=== PATIENT | female | born 1940 | race Caucasian/White ===

== ENCOUNTER 2017-06-15 04:28 | Emergency (ER) | payer OTHER ==
[2017-06-15] MEDS ORDERED: MORPHINE 4 MG/ML SYR ONE (05:18)
[2017-06-15] MEDS ORDERED: ONDANSETRON 4 MG/2 ML VIAL ONE (05:18)
--- NOTE | 2017-06-15 06:12 | ER ---
Nurse's Notes [facility] Name: Bowen Jo Age: 77 yrs Sex: Female : 1940 Arrival Date: 06/15/2017 Time: 04:29 Bed 5 Private MD: Barbara Freeman K Diagnosis: Chronic back pain Presentation: 06/15 04:38 Presenting complaint: Patient states: "I been having back pain for the past week and ao half. The pain is getting off my nerve and decided to come to the ER tonight" Patient has a history of Chronic back pain. Transition of care: patient was not received from another setting of care. Onset of symptoms is unknown. Care prior to arrival: None. 04:38 Method Of Arrival: Ambulatory ao 04:38 Acuity: CYNTHIA 4 ao Historical: - Allergies: 04:49 PENICILLINS; ao - Home Meds: 04:49 oxycodone 30 mg Oral tab three times a day [Active]; Cymbalta 60 mg oral cpDR 1 cap ao once daily [Active]; lisinopril 20 mg Oral tab 1 tab once daily [Active]; trazodone 100 mg Oral tab 1 tab 3 times per day [Active]; hydrochlorothiazide 12.5 mg Oral cap 1 cap once daily [Active]; trazodone 150 mg Oral tab nightly [Active]; Trintellix 10 mg oral tab 1 tab once daily [Active]; meloxicam 7.5 mg Oral tab 2 tabs once daily [Active]; fenofibrate 160 mg Oral tab once daily [Active]; tizanidine 2 mg Oral tab 2 tabs every 8 hours [Active]; gabapentin 300 mg Oral cap 3 times per day [Active]; promethazine 25 mg oral tab 1 tab once daily [Active]; oxycodone 30 mg oral tab [Active]; Bactrim DS 800-160 mg Oral tab 1 tab every 6 hours [Active]; - PMHx: 04:49 Arthritis; Back pain; Insomnia; Anxiety; COPD; Diabetes - NIDDM; Hypertension; chronic ao kidney disease; Pneumonia; UTI; High Cholesterol; neuropathy; sciatica; Dementia; constipation; - PSHx: 04:49 Unable to obtain; ao - Immunization history:: Adult Immunizations up to date. - Social history:: Smoking status: Patient uses tobacco products, smokes one pack cigarettes per day. Patient/guardian denies using alcohol, street drugs. Screenin:44 Abuse screen: Denies threats or abuse. Nutritional screening: No deficits noted. bb Tuberculosis screening: No symptoms or risk factors identified. Fall Risk None identified. Assessment: 04:44 General: Appears in no apparent distress. slender, Behavior is calm, cooperative. Pain: bb Complains of pain in right mid back. Neuro: Level of Consciousness is awake, alert, obeys commands, Oriented to person, place, time, situation. Cardiovascular: Heart tones S1 S2 present Capillary refill < 3 seconds Patient's skin is warm and dry. Pulses are all present. Edema is absent. Respiratory: Respiratory effort is unlabored, Breath sounds are diminished in right posterior middle lobe and right posterior lower lobe Breath sounds with wheezes bilaterally. GI: No signs and/or symptoms were reported involving the gastrointestinal system. Derm: Skin is dry, Skin is pale, Skin temperature is warm. Musculoskeletal: Circulation, motion, and sensation intact. 05:06 Reassessment: pt to CT scan via wheelchair with hemodialysis lab technician. bb 05:50 Reassessment: Patient and/or family updated on plan of care and expected duration. Pain bb level reassessed. Patient is alert, oriented x 3, equal unlabored respirations, skin warm/dry/pink. pt states pain medication did not help at all, Dr Moore notified. 06:19 Reassessment: Pt and daughter verbalized understanding of and agree to plan of care bb discharge instructions given with list of pain management specialists, pt assisted to exit via wheelchair accompanied by daughter. Vital Signs: 04:40 BP 185 / 75; Pulse 102; Resp 20; Temp 98.4(O); Pulse Ox 86% on R/A; Weight 53.52 kg ao (R); Height 5 ft. 3 in. (160.02 cm) (R); Pain 10/10; 05:49 BP 159 / 83; Pulse 100; Resp 20; Pulse Ox 93% on 2 lpm NC; aa1 06:20 BP 158 / 85; Pulse 98; Resp 20; Temp 98.1(O); Pulse Ox 93% on 3 lpm NC; bb 04:40 Body Mass Index 20.90 (53.52 kg, 160.02 cm) ao ED Course: 04:29 Patient arrived in ED. es 04:29 Barbara Freeman MD is Private Physician. es 04:40 Triage completed. ao 04:40 Arm band placed on right wrist. Patient placed in an exam room, on a stretcher, on ao pulse oximetry, Patient notified of wait time. 04:44 Hermila Mahmood, RN is Primary Nurse. bb 04:44 Patient has correct armband on for positive identification. Bed in low position. Call bb light in reach. Side rails up X 1. Adult w/ patient. ekg monitor tech on. Pulse ox on. NIBP on. 04:47 Marciano Moore MD is Attending Physician. pkl 05:17 CT Lumbar Spine Wo Con In Process Unspecified. EDMS 06:11 Nguyen Valverde MD is Referral Physician. pkl 06:19 No provider procedures requiring assistance completed. Patient did not have IV access bb during this emergency room visit. Administered Medications: 05:02 Drug: morphine 2 mg Route: IM; Site: right gluteus; bb 05:51 Follow up: Response: Pain is unchanged, physician notified bb 05:02 Drug: Zofran 4 mg Route: IM; Site: right gluteus; bb 05:51 Follow up: Response: No adverse reaction bb Outcome: 06:11 Discharge ordered by MD. pkl 06:21 Discharged to home via wheelchair, with family. bb 06:21 Condition: stable 06:21 Discharge instructions given to patient, family, Instructed on discharge instructions, follow up and referral plans. Demonstrated understanding of instructions, follow-up care. 06:22 Patient left the ED. bb Signatures: Dispatcher [employer] Carrie Clark RN RN aa1 Marciano Moore MD MD pkl Cassy Ansari Brenda, CHICA RN bb Kwaku Gamboa RN RN ao
--- NOTE | 2017-06-15 06:12 | EDPHYS ---
Physician Documentation [facility] Name: Bowen Jo Age: 77 yrs Sex: Female : 1940 Arrival Date: 06/15/2017 Time: 04:29 Bed 5 Private MD: Barbara Freeman K ED Physician Marciano Moore HPI: 06/15 04:55 This 77 yrs old Female presents to ER via Ambulatory with complaints of Back pkl Pain. 04:55 The patient presents with pain that is chronic. The symptoms are located in the low pkl back. Onset: The symptoms/episode began/occurred 1.5 week(s) ago. The pain does not radiate. Patient has H/O chronic back pain. Historical: - Allergies: 04:49 PENICILLINS; ao - Home Meds: 04:49 oxycodone 30 mg Oral tab three times a day [Active]; Cymbalta 60 mg oral cpDR 1 cap ao once daily [Active]; lisinopril 20 mg Oral tab 1 tab once daily [Active]; trazodone 100 mg Oral tab 1 tab 3 times per day [Active]; hydrochlorothiazide 12.5 mg Oral cap 1 cap once daily [Active]; trazodone 150 mg Oral tab nightly [Active]; Trintellix 10 mg oral tab 1 tab once daily [Active]; meloxicam 7.5 mg Oral tab 2 tabs once daily [Active]; fenofibrate 160 mg Oral tab once daily [Active]; tizanidine 2 mg Oral tab 2 tabs every 8 hours [Active]; gabapentin 300 mg Oral cap 3 times per day [Active]; promethazine 25 mg oral tab 1 tab once daily [Active]; oxycodone 30 mg oral tab [Active]; Bactrim DS 800-160 mg Oral tab 1 tab every 6 hours [Active]; - PMHx: 04:49 Arthritis; Back pain; Insomnia; Anxiety; COPD; Diabetes - NIDDM; Hypertension; chronic ao kidney disease; Pneumonia; UTI; High Cholesterol; neuropathy; sciatica; Dementia; constipation; - PSHx: 04:49 Unable to obtain; ao - Immunization history:: Adult Immunizations up to date. - Social history:: Smoking status: Patient uses tobacco products, smokes one pack cigarettes per day. Patient/guardian denies using alcohol, street drugs. ROS: 04:55 Eyes: Negative for injury, pain, redness, and discharge, ENT: Negative for injury, pkl pain, and discharge, Neck: Negative for injury, pain, and swelling, Cardiovascular: Negative for chest pain, palpitations, and edema, Respiratory: Negative for shortness of breath, cough, wheezing, and pleuritic chest pain, Abdomen/GI: Negative for abdominal pain, nausea, vomiting, diarrhea, and constipation. 04:55 Back: Positive for pain with movement. 04:55 : Negative for urinary symptoms. 04:55 MS/extremity: Negative for acute changes. 04:55 Skin: Negative for rash. 04:55 Neuro: Negative for altered mental status. Exam: 04:55 Head/Face: Normocephalic, atraumatic. Eyes: Pupils equal round and reactive to light, pkl extra-ocular motions intact. Lids and lashes normal. Conjunctiva and sclera are non-icteric and not injected. Cornea within normal limits. Periorbital areas with no swelling, redness, or edema. ENT: Nares patent. No nasal discharge, no septal abnormalities noted. Tympanic membranes are normal and external auditory canals are clear. Oropharynx with no redness, swelling, or masses, exudates, or evidence of obstruction, uvula midline. Mucous membranes moist. Neck: Trachea midline, no thyromegaly or masses palpated, and no cervical lymphadenopathy. Supple, full range of motion without nuchal rigidity, or vertebral point tenderness. No Meningismus. Chest/axilla: Normal chest wall appearance and motion. Nontender with no deformity. No lesions are appreciated. Cardiovascular: Regular rate and rhythm with a normal S1 and S2. No gallops, murmurs, or rubs. Normal PMI, no JVD. No pulse deficits. Respiratory: Lungs have equal breath sounds bilaterally, clear to auscultation and percussion. No rales, rhonchi or wheezes noted. No increased work of breathing, no retractions or nasal flaring. Abdomen/GI: Soft, non-tender, with normal bowel sounds. No distension or tympany. No guarding or rebound. No evidence of tenderness throughout. 04:55 Back: pain, that is moderate, of the lower back, Straight leg raises: of both lower extremities does not illicit pain. 04:55 Musculoskeletal/extremity: Exam is negative for acute changes. 04:55 Skin: Exam negative for rash. 04:55 Neuro: Orientation: is normal, Mentation: is normal, Cranial nerves: grossly normal, Motor: is normal. Vital Signs: 04:40 BP 185 / 75; Pulse 102; Resp 20; Temp 98.4(O); Pulse Ox 86% on R/A; Weight 53.52 kg ao (R); Height 5 ft. 3 in. (160.02 cm) (R); Pain 10/10; 05:49 BP 159 / 83; Pulse 100; Resp 20; Pulse Ox 93% on 2 lpm NC; aa1 06:20 BP 158 / 85; Pulse 98; Resp 20; Temp 98.1(O); Pulse Ox 93% on 3 lpm NC; bb 04:40 Body Mass Index 20.90 (53.52 kg, 160.02 cm) ao MDM: 04:47 Patient medically screened. pkl 06:10 Data reviewed: vital signs, nurses notes, radiologic studies, CT scan. pkl 06/15 04:54 Order name: CT Lumbar Spine Wo Con pkl Administered Medications: 05:02 Drug: morphine 2 mg Route: IM; Site: right gluteus; bb 05:51 Follow up: Response: Pain is unchanged, physician notified bb 05:02 Drug: Zofran 4 mg Route: IM; Site: right gluteus; bb 05:51 Follow up: Response: No adverse reaction bb Disposition: 06/15/17 06:11 Discharged to Home. Impression: Chronic back pain. - Condition is Stable. - Medication Reconciliation Form, Thank You Letter, Antibiotic Education, Prescription Opioid Use form. - Follow up: Nguyen Valverde MD; When: 2 - 3 days; Reason: Re-evaluation by your physician. - Problem is new. - Symptoms have improved. Signatures: Dispatcher [employer] EDMS Marciano Moore MD MD pkl Hermila Mahmood, RN RN bb Kwaku Gamboa, RN RN ao
--- NOTE | 2017-06-15 09:48 | RAD REPORT ---
EXAM DESCRIPTION: CT - Spine Lumbar Wo Con - 06/15/2017 9:01 am CLINICAL HISTORY: Radiculopathy and back pain x 1 1/2 weeks. TECHNIQUE: CT computed axial tomography of the lumbar spine was obtained with coronal and sagittal r econstruction. A preliminary report was generated by virtual radiologic and reviewed prior to this di ctation COMPARISON: X-ray August 2012. FINDINGS: Mild anterior subluxation of L5 on S1 is unchanged from the prior examination. L1-L2 is unremarkable. A small disc bulge is present at L2-L3. Disc bulge with ligamentum flavum and facet hypertrophy is seen at L3-L4. The thecal sac measures 10 mm. The neural foramina are patent. Disc bulge, ligamentum flavum and facet hypertrophy is present at L4-L5. The thecal sac measures 8 mm . Mild narrowing of the neural foramina bilaterally is seen. Disc bulge, ligamentum flavum facet hypertrophy is present at L5-S1. There is moderate to marked narr owing of the right neural foramina. Mild narrowing left neural foramina is seen. Small non-obstructing renal calculi are seen. A lumbar fracture is not seen. 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
== END 2017-06-15 06:22 | disposition home or self-care (01) ==
LOC: ER 04:28
DX: M54.9 Dorsalgia, unspecified (principal); F17.210 Nicotine dependence, cigarettes, uncomplicated; I10 Essential (primary) hypertension; E11.9 Type 2 diabetes mellitus without complications; F41.9 Anxiety disorder, unspecified; F03.90 Unspecified dementia, unspecified severity, without behavioral disturbance, psychotic disturbance, mood disturbance, and anxiety; J44.9 Chronic obstructive pulmonary disease, unspecified; E78.00 Pure hypercholesterolemia, unspecified
CPT/HCPCS: 72131; 96372; 99284; J2405

== ENCOUNTER 2017-09-10 18:52 | Inpatient (IN) | payer OTHER ==
--- OUTSIDE RECORDS SUMMARY | 2017-09-10 18:55 | XMS REPORT | Continuity of Care Document ---
:1940 Author Organization Interface Problems Problem Status Onset Classification Date Comments Source Date Reported COMBINED FORMS OF Active 08/13/19 [facility] AGE-RELATED CATARACT, [facility] ENDOTHELIAL CORNEA Active 07/24/19 [facility] DYSTROPHY [address] [place] [address] COPD Resolved Problem 08/24/2015 [facility] Diabetes Resolved Problem 08/24/2015 [facility] Hypercholesteremia Resolved Problem 08/24/2015 [facility] Hypertension Resolved Problem 08/24/2015 [facility] Pain<sup>1</sup> Resolved Problem 08/24/2015 [facility] Medications Medication Details Route Status Patient Ordering Order Source Instructions Provider Date Naloxone
0.4 mg, 1 Inactive 08/20[facility] mL, Route: IVP, 2015 [facility] form: INJ, Center Q2MIN, Dosing Weight 56.364, kg, PRN Narcotic Reversal, Start date: 08/21/15 13:03:00 CDT, Duration: 8 doses or times, Stop date: Limited # of times
Not es: Same as Narcan Flumazenil
0.2 mg, 2 Inactive 08/20[facility] mL, Route: IVP, 2015 [facility] Drug form: INJ, Center PRN, Dosing Weight 56.364, kg, PRN Benzodiazepine Reversal, Initial dose, Start date: 08/21/15 13:03:00 CDT, Duration: 30 day, Stop date: 09/20/15 13:02:00 CDT
Notes: (Same as: Romazicon) Ondansetron
4 mg, 2 mL, Inactive 08/20[facility] Route: IVP, Drug 2015 Medical form: INJ, ONCE, Center Dosing Weight 56.364, kg, PRN Nausea & Vomiting, Start date: 08/21/15 13:03:00 CDT
Notes: (Same as: Zofran) MEDICATION WASTE Product Size: 4 mg Product Wasted: ___ mg Labetalol
10 mg, 2 Inactive [facility] mL, Route: IVP2015 [facility] form: INJ, Center Q5Min, Dosing Weight 56.364, kg, PRN Elevated BP, Start date: 08/21/15 13:03:00 CDT, Duration: 5 doses or times, Stop date: Limited # of times Morphine
1 mg, 0.5 Inactive [facility] mL, Route: IVP, 2015 [facility] Drug form: INJ, Center Q5Min, Dosing Weight 56.364, kg, PRN Pain Score 4-6, Start date: 08/21/15 13:03:00 CDT, Duration: 5 doses or times, Stop date: Limited # of times
Notes: (Same as:MORPhine Sulfate) Hydralazine
10 mg, 0.5 Inactive [facility] mL, Route: IV2015 [facility] Drug form: INJ, Center Q20Min, Dosing Weight 56.364, kg, PRN Elevated BP, Start date: 08/21/15 13:03:00 CDT, Duration: 2 doses or times, Stop date: Limited # of times
Notes: (Same as: Apresoline) Push over 5 minutes Prednisone
PO, Daily, Active 08/20[facility] 0 Refill(s) 2015 [facility] gabapentin
PO, 0 Active 08/20[facility] Refill(s) [address] [place] [address] Unknown Home
oxycodone, Active 08/20[facility] Medication Refill(s) [address] [place] [address] multivitamin
Daily, 0 Active 08/20[facility] Refill(s) [address] [place] [address] Metformin
PO, 0 Active 08/20[facility] Refill(s) 2016 [facility] Lisinopril
PO, Daily, Active 08/20[facility] 0 Refill(s) [address] [place] [address] Unknown Home
calcium, Active 08/20[facility] Medication Refill(s) [address] [place] [address] Lactulose
0 Refill(s) Active 08/[address] Lipitor
PO, Active 08/20[facility] Bedtime, 0 2015 [facility] Refill[facility] Center Aspirin
0 Refill(s) Active [address] Vigamox
5 drp, Inactive [facility] Route: RIGHT 2016 [facility] E[facility], ONCE, Drug Center form: SOLN, Start date: 08/21/15 10:19:00 CDT, Stop date: 08/21/15 10:19:00 CDT
Notes: (Same as: Vigamox) Allergies, Adverse Reactions, Alerts Substance Category Reaction Severity Reaction Status Date Comments Source type Reported penicillins Assertion Drug Active [facility] Immunizations Immunization Date Given Site Status Last Updated Comments Source Results Order Results Value Reference Date Interpretation Comments Source Name Range Vital Signs Vital Sign Value Date Comments Source Systolic (mm Hg) 159 08/21/2015 [facility] Diastolic (mm Hg) 74 08/21/2015 [facility] Respitory Rate 16 08/21/2015 [facility] Systolic (mm Hg) 145 08/21/2015 [facility] Diastolic (mm Hg) 71 08/21/2015 [facility] Respitory Rate 11 08/21/2015 [facility] Systolic (mm Hg) 120 08/21/2015 [facility] Diastolic (mm Hg) 75 08/21/2015 [facility] Respitory Rate 13 08/21/2015 [facility] Height 162.56 cm 08/21/2015 [facility] Weight 56.364 08/21/2015 [facility] BMI Calculated 21.33 08/21/2015 [facility] Heart Rate 95 08/21/2015 [facility] Encounters Location Location Encounter Encounter Reason Attending ADM DC Status Source Details Type Number For Provider Date Date Visit OBS [id number] Gene Brittany 08/20 08/21 [facility] Surgery /2015 [facility] Procedures Procedure Code Date Perfomer Comments Source Hysterectomy [id number] [facility]
[2017-09-10] MEDS ORDERED: METHYLPREDNISOLONE 125 MG INJ ONE (19:34)
[2017-09-10] MEDS ORDERED: IPRATROPIUM BROM 0.5MG/2.5ML ONE (19:35)
[2017-09-10] MEDS ORDERED: LEVALBUTEROL 1.25 MG/3 ML NEB ONE (19:35)
[2017-09-10 19:50] LABS: Absolute Lymphocytes (CBC) 1.6 K/uL (0.7-4.9); Absolute Monocytes 0.6 K/uL (0.1-1.3); Basophils % 0.4 % (0-1.3); Eosinophils % 0.5 % (0-4.4); Hematocrit 46.6 % (36.0-45.0); MCH 28.7 pg (27.0-35.0); MPV 8.2 fL (7.6-11.3); Monocytes % 4.4 % (3.3-12.3); RBC Red Blood Cell Count 5.17 M/uL (3.86-4.86)
[2017-09-10 19:51] LABS: Protime INR 1.1
[2017-09-10 20:06] LABS: ALT/SGPT 22 U/L (12-78); AST/SGOT 13 U/L (15-37); Albumin 2.8 g/dL (3.4-5.0); Alkaline Phosphatase 86 U/L (45-117); BUN Blood Urea Nitrogen 31 mg/dL (7-18); Bicarbonate 39 mmol/L (21-32); Bilirubin Direct < 0.1 mg/dL (0-0.2); Bilirubin Total 0.3 mg/dL (0.2-1.0); Glucose Level 156 mg/dL (74-106); Lipase 191 U/L (73-393); Magnesium 2.2 mg/dL (1.8-2.4); NT PRO-BNP 503 pg/mL (<450); Potassium 4.5 mmol/L (3.5-5.1); Protein, Total 7.8 g/dL (6.4-8.2); Sodium Level 140 mmol/L (136-145)
[2017-09-10 20:12] LABS: Urine Blood TRACE (NEG); Urine Glucose NEGATIVE (NEG); Urine Protein 2+ (NEG); Urine pH 5.5 (5.0-7.0)
--- NOTE | 2017-09-10 20:42 | RAD REPORT ---
EXAM DESCRIPTION: Ghanshyam Rubio (2 Views)09/10/2017 8:23 pm CLINICAL HISTORY: Cough COMPARISON: March 2017 FINDINGS: The interstitial pattern within the lungs bilaterally appears prominent. The heart is norm al size IMPRESSION: Prominent interstitial pattern within the lungs bilaterally may indicate an atypical pne umonia
--- NOTE | 2017-09-10 21:24 | ER ---
Nurse's Notes [facility] Name: Bowen Jo Age: 77 yrs Sex: Female : 1940 Arrival Date: 09/10/2017 Time: 18:57 Bed External Waiting [facility] MD: Diagnosis: Acute Bilateral Interstitial Pneumonia Presentation: 09/10 19:08 Presenting complaint: Patient states: she was here 3 weeks ago for similar symptoms of bb cough and SOB but symptoms are worsening pt states she feels weak and having difficulty breathing still has a cough. Transition of care: patient was not received from another setting of care. Onset of symptoms is unknown. Risk Assessment: Do you want to hurt yourself or someone else? Patient reports no desire to harm self or others. Initial Sepsis Screen: Does the patient meet any 2 criteria? No. Patient's initial sepsis screen is negative. Does the patient have a suspected source of infection? No. Patient's initial sepsis screen is negative. Care prior to arrival: None. 19:08 Method Of Arrival: Ambulatory bb 19:08 Acuity: CYNTHIA 2 bb Triage Assessment: 19:16 General: Appears uncomfortable, slender, Behavior is calm, cooperative, listless. Pain: bb Denies pain. Neuro: Level of Consciousness is awake, alert, obeys commands, Oriented to person, place, time, situation. Cardiovascular: Heart tones S1 S2 present Capillary refill < 3 seconds Patient's skin is warm and dry. Pulses are all present. Edema is absent. Rhythm is sinus tachycardia. Respiratory: Reports shortness of breath cough that is Airway is patent Respiratory effort is unlabored, Respiratory pattern is tachypnea Breath sounds are clear bilaterally. Breath sounds are diminished bilaterally. Onset: The symptoms/episode began/occurred over 3 weeks ago, the patient has moderate shortness of breath. GI: Abdomen is non-distended. Derm: Skin is dry, Skin is pale, Skin temperature is warm. Musculoskeletal: Circulation, motion, and sensation intact. Historical: - Allergies: 19:16 PENICILLINS; bb - Home Meds: 19:16 Bactrim DS 800-160 mg Oral tab 1 tab every 6 hours [Active]; Cymbalta 60 mg Oral cpDR 1 bb cap once daily [Active]; fenofibrate 160 mg Oral tab once daily [Active]; gabapentin 300 mg Oral cap 3 times per day [Active]; hydrochlorothiazide 12.5 mg Oral cap 1 cap once daily [Active]; lisinopril 20 mg Oral tab 1 tab once daily [Active]; meloxicam 7.5 mg Oral tab 2 tabs once daily [Active]; oxycodone 30 mg Oral tab [Active]; oxycodone 30 mg Oral tab three times a day [Active]; promethazine 25 mg Oral tab 1 tab once daily [Active]; tizanidine 2 mg Oral tab 2 tabs every 8 hours [Active]; trazodone 100 mg Oral tab 1 tab 3 times per day [Active]; trazodone 150 mg Oral tab nightly [Active]; Trintellix 10 mg Oral tab 1 tab once daily [Active]; - PMHx: 19:16 Anxiety; Arthritis; Back pain; chronic kidney disease; constipation; COPD; Dementia; bb Diabetes - NIDDM; High Cholesterol; Hypertension; insomnia; neuropathy; Pneumonia; sciatica; UTI; - PSHx: 19:16 Unable to obtain; bb - Immunization history:: Adult Immunizations up to date. - Social history:: Smoking status: Patient uses tobacco products, smokes one pack cigarettes per day. - Ebola Screening: : No symptoms or risks identified at this time. - Family history:: not pertinent. - Hospitalizations: : No recent hospitalization is reported. Screenin:20 Abuse screen: Denies threats or abuse. Nutritional screening: No deficits noted. bb Tuberculosis screening: No symptoms or risk factors identified. Fall Risk Secondary diagnosis (15 points) IV access (20 points). Ambulatory Aid- None/Bed Rest/Nurse Assist (0 pts). Gait- Weak (10 pts.). Mental Status- Oriented to own ability (0 pts). Total Booth Fall Scale indicates High Risk Score (45 or more points). Fall prevention measures have been instituted. Side Rails Up X 2 Family Present and informed to notify staff if the need to leave the bedside As available patient and family educated on Fall Prevention Program and Strategies. Assessment: 19:20 Reassessment: No changes from previously documented assessment. see triage assessment. bb 20:04 Reassessment: pt returned from bathroom via wheelchair with no complaints, family at bb bedside. 21:00 Reassessment: Patient and/or family updated on plan of care and expected duration. Pain bb level reassessed. pt resting quietly prefers to sit in wheelchair, family at bedside awaiting lab results. 22:00 Reassessment: Patient and/or family updated on plan of care and expected duration. Pain bb level reassessed. pt resting quietly, no complaints, IV intact with fluids infusing. 23:23 Reassessment: Patient and/or family updated on plan of care and expected duration. Pain bb level reassessed. pt resting quietly, IV intact, report called to Talita COTO for room 222 with tele. Vital Signs: 19:16 BP 179 / 100; Pulse 109; Resp 24 S; Temp 99.1(O); Pulse Ox 82% on R/A; Weight 53.52 kg bb (R); Height 5 ft. 4 in. (162.56 cm) (R); Pain 0/10; 19:21 Pulse Ox 93% on 3 lpm NC; bb 20:03 BP 173 / 106; Pulse 112; Resp 25; Pulse Ox 91% on 3 lpm NC; bb 23:16 BP 168 / 101; Pulse 107; Resp 22; Pulse Ox 96% on 3 lpm NC; tl2 19:16 Body Mass Index 20.25 (53.52 kg, 162.56 cm) bb ED Course: 18:57 Patient arrived in ED. sb2 19:02 Chadwick Vaughn MD is Attending Physician. wa 19:08 Hermila Mahmood, CHICA is Primary Nurse. bb 19:10 Triage completed. bb 19:16 Arm band placed on Patient placed in an exam room, on a stretcher, on oxygen, on bb campus monitor, on pulse oximetry. Family accompanied patient. 19:20 Patient has correct armband on for positive identification. Placed in gown. Bed in low bb position. Call light in reach. Side rails up X 1. Adult w/ patient. clinical research monitor on. Pulse ox on. NIBP on. 19:20 Oxygen administration via nasal cannula \T\ 3L/min Response to oxygen therapy: symptoms bb improved. 19:40 Inserted saline lock: 20 gauge in left antecubital area, using aseptic technique. Blood mw2 collected. 19:49 Radiology exam delayed due to patient receiving breathing treatment at this time. ag1 20:20 X-ray completed. Patient tolerated procedure well. ag1 20:21 XRAY Chest Pa And Lat (2 Views) In Process Unspecified. EDMS 21:23 Chadwick Vaughn MD is Hospitalizing Provider. nh 21:23 Shannan Curran MD is Hospitalizing Provider. nh 23:20 No provider procedures requiring assistance completed. Patient admitted, IV remains in bb place. Administered Medications: 19:40 Drug: Xopenex 1.25 mg Route: Inhalation; bb 19:40 Drug: SOLU-Medrol 125 mg Route: IVP; Site: left antecubital; bb 23:24 Follow up: Response: No adverse reaction bb 19:40 Drug: AtroVENT Aerosol 0.5 mg Route: Inhalation; bb 21:40 Drug: Rocephin - (cefTRIAXone) 2 grams Route: IVPB; Infused Over: 30 mins; Site: left tl2 antecubital; 22:29 Follow up: IV Status: Completed infusion tl2 22:15 Drug: Zithromax 500 mg Route: IVPB; Infused Over: 1 hrs; Site: left antecubital; tl2 23:23 Follow up: IV Status: Completed infusion; IV Intake: 250ml bb Intake: 23:23 IV: 250ml; Total: 250ml. bb Outcome: 21:24 Decision to Hospitalize by Provider. wa 23:20 Admitted to Tele accompanied by tech, via stretcher, room 222, with chart, Report bb called to Talita COTO 23:20 Condition: stable 23:20 Instructed on the need for admit. 09/11 01:27 Patient left the ED. tl2 Signatures: Dispatcher [employer] EDMS Hermila Mahmood RN RN bb Gallaway, Ashley ag1 Sharona Holguin RN RN tl2 Chadwick Vaughn MD MD wa Billeau, Sheri 2 [place] Manuel mw2
--- NOTE | 2017-09-10 21:24 | EDPHYS ---
Physician Documentation [facility] Name: Bowen Jo Age: 77 yrs Sex: Female : 1940 Arrival Date: 09/10/2017 Time: 18:57 Bed External Waiting Private MD: ED Physician Chadwick Vaughn HPI: 09/10 19:25 This 77 yrs old Female presents to ER via Ambulatory with complaints of wa Cough, Shortness Of Breath. 19:25 The patient or guardian reports cough, that is constant, difficulty breathing. Onset: wa The symptoms/episode began/occurred 3 week(s) ago. Severity of symptoms: At their worst the symptoms were moderate, in the emergency department the symptoms are actually worse, moderately. Modifying factors: The symptoms are alleviated by nothing, the symptoms are aggravated by nothing. Associated signs and symptoms: Pertinent positives: fever, chills, Pertinent negatives: chest pain, diarrhea, sore throat, vomiting. The patient has experienced similar episodes in the past, a few times. The patient has been recently seen by a physician: the patient's primary care provider, has been seen here. has also seen her PMD. abx given but still not better. pt still smokes cigarettes. Historical: - Allergies: 19:16 PENICILLINS; bb - Home Meds: 19:16 Bactrim DS 800-160 mg Oral tab 1 tab every 6 hours [Active]; Cymbalta 60 mg Oral cpDR 1 bb cap once daily [Active]; fenofibrate 160 mg Oral tab once daily [Active]; gabapentin 300 mg Oral cap 3 times per day [Active]; hydrochlorothiazide 12.5 mg Oral cap 1 cap once daily [Active]; lisinopril 20 mg Oral tab 1 tab once daily [Active]; meloxicam 7.5 mg Oral tab 2 tabs once daily [Active]; oxycodone 30 mg Oral tab [Active]; oxycodone 30 mg Oral tab three times a day [Active]; promethazine 25 mg Oral tab 1 tab once daily [Active]; tizanidine 2 mg Oral tab 2 tabs every 8 hours [Active]; trazodone 100 mg Oral tab 1 tab 3 times per day [Active]; trazodone 150 mg Oral tab nightly [Active]; Trintellix 10 mg Oral tab 1 tab once daily [Active]; - PMHx: 19:16 Anxiety; Arthritis; Back pain; chronic kidney disease; constipation; COPD; Dementia; bb Diabetes - NIDDM; High Cholesterol; Hypertension; insomnia; neuropathy; Pneumonia; sciatica; UTI; - PSHx: 19:16 Unable to obtain; bb - Immunization history:: Adult Immunizations up to date. - Social history:: Smoking status: Patient uses tobacco products, smokes one pack cigarettes per day. - Ebola Screening: : No symptoms or risks identified at this time. - Family history:: not pertinent. - Hospitalizations: : No recent hospitalization is reported. ROS: 19:27 Constitutional: Negative for fever, chills, and weight loss, Eyes: Negative for injury, wa pain, redness, and discharge, ENT: Negative for injury, pain, and discharge, Neck: Negative for injury, pain, and swelling, Cardiovascular: Negative for chest pain, palpitations, and edema, Abdomen/GI: Negative for abdominal pain, nausea, vomiting, diarrhea, and constipation, Back: Negative for injury and pain, : Negative for injury, bleeding, discharge, and swelling, MS/Extremity: Negative for injury and deformity, Skin: Negative for injury, rash, and discoloration, Neuro: Negative for headache, weakness, numbness, tingling, and seizure. 19:27 Respiratory: Positive for cough, shortness of breath, Negative for hemoptysis, orthopnea, pleurisy. 19:27 All other systems are negative. Exam: 19:28 Constitutional: This is a well developed, well nourished patient who is awake, alert, wa and in no acute distress. Head/Face: Normocephalic, atraumatic. Eyes: Pupils equal round and reactive to light, extra-ocular motions intact. Lids and lashes normal. Conjunctiva and sclera are non-icteric and not injected. Cornea within normal limits. Periorbital areas with no swelling, redness, or edema. ENT: Nares patent. No nasal discharge, no septal abnormalities noted. Tympanic membranes are normal and external auditory canals are clear. Oropharynx with no redness, swelling, or masses, exudates, or evidence of obstruction, uvula midline. Mucous membranes moist. Neck: Trachea midline, no thyromegaly or masses palpated, and no cervical lymphadenopathy. Supple, full range of motion without nuchal rigidity, or vertebral point tenderness. No Meningismus. Chest/axilla: Normal chest wall appearance and motion. Nontender with no deformity. No lesions are appreciated. Cardiovascular: Regular rate and rhythm with a normal S1 and S2. No gallops, murmurs, or rubs. Normal PMI, no JVD. No pulse deficits. Abdomen/GI: Soft, non-tender, with normal bowel sounds. No distension or tympany. No guarding or rebound. No evidence of tenderness throughout. Back: No spinal tenderness. No costovertebral tenderness. Full range of motion. Skin: Warm, dry with normal turgor. Normal color with no rashes, no lesions, and no evidence of cellulitis. MS/ Extremity: Pulses equal, no cyanosis. Neurovascular intact. Full, normal range of motion. Neuro: Awake and alert, GCS 15, oriented to person, place, time, and situation. Cranial nerves II-XII grossly intact. Motor strength 5/5 in all extremities. Sensory grossly intact. Cerebellar exam normal. Normal gait. Psych: Awake, alert, with orientation to person, place and time. Behavior, mood, and affect are within normal limits. 19:28 Respiratory: mild respiratory distress is noted, Respirations: normal, Breath sounds: diminished throughout, Respiratory rate: tachypneic Vital Signs: 19:16 BP 179 / 100; Pulse 109; Resp 24 S; Temp 99.1(O); Pulse Ox 82% on R/A; Weight 53.52 kg bb (R); Height 5 ft. 4 in. (162.56 cm) (R); Pain 0/10; 19:21 Pulse Ox 93% on 3 lpm NC; bb 20:03 BP 173 / 106; Pulse 112; Resp 25; Pulse Ox 91% on 3 lpm NC; bb 23:16 BP 168 / 101; Pulse 107; Resp 22; Pulse Ox 96% on 3 lpm NC; tl2 19:16 Body Mass Index 20.25 (53.52 kg, 162.56 cm) MDM: 19:02 Patient medically screened. wa 19:28 Differential Diagnosis: Bronchitis Upper Respiratory Infection Asthma Exacerbation wa Pneumonia Other COPD exacerbation. r/o PE. 21:20 Data reviewed: vital signs, nurses notes, lab test result(s), radiologic studies. Test wa interpretation: by ED physician or midlevel provider: EKG: HR 107, sinus tach. no acute ischemic changes. labs noted for renal insuff. hyperglycemia. proteinuria. CXR: atypical pneumonia. Response to treatment: the patient's symptoms have markedly improved after treatment. Physician consultation: Shannan Curran MD. Admission orders: after a detailed discussion of the patient's condition and case, the admit orders are written by wy. 09/10 19:25 Order name: Blood Culture Adult (2) 09/10 19:25 Order name: BMP; Complete Time: 21:09/10 19:25 Order name: CBC with Diff; Complete Time: 21:09/10 19:25 Order name: Hepatic Function; Complete Time: 21:09/10 19:25 Order name: Lipase; Complete Time: 21:09/10 19:25 Order name: Magnesium; Complete Time: 21:09/10 19:25 Order name: XRAY Chest Pa And Lat (2 Views); Complete Time: 21:09/10 19:25 Order name: NT PRO-BNP; Complete Time: 21:09/10 19:25 Order name: PT-INR; Complete Time: 21:09/10 19:25 Order name: Troponin (emerg Dept Use Only); Complete Time: 21:09/10 20:06 Order name: Urine Dipstick--Ancillary (enter results); Complete Time: 21: 09/10 19:25 Order name: EKG; Complete Time: 19:09/10 19:25 Order name: Cardiac monitoring; Complete Time: :09/10 19:25 Order name: EKG - Nurse/Tech; Complete Time: :09/10 19:25 Order name: IV Saline Lock; Complete Time: 19:57 09/10 19:25 Order name: Labs collected and sent; Complete Time: :09/10 19:25 Order name: O2 Per Protocol; Complete Time: :09/10 19:25 Order name: O2 Sat Monitoring; Complete Time: :09/10 19:25 Order name: Urine Dipstick-Ancillary (obtain specimen); Complete Time: 20:03 sd Administered Medications: 19:40 Drug: Xopenex 1.25 mg Route: Inhalation; bb 19:40 Drug: SOLU-Medrol 125 mg Route: IVP; Site: left antecubital; bb 23:24 Follow up: Response: No adverse reaction bb 19:40 Drug: AtroVENT Aerosol 0.5 mg Route: Inhalation; bb 21:40 Drug: Rocephin - (cefTRIAXone) 2 grams Route: IVPB; Infused Over: 30 mins; Site: left tl2 antecubital; 22:29 Follow up: IV Status: Completed infusion tl2 22:15 Drug: Zithromax 500 mg Route: IVPB; Infused Over: 1 hrs; Site: left antecubital; tl2 23:23 Follow up: IV Status: Completed infusion; IV Intake: 250ml bb Disposition: 09/10/17 21:24 Hospitalization ordered by Shannan Curran for Inpatient Admission. Preliminary diagnosis is Acute Bilateral Interstitial Pneumonia. - Bed requested for Telemetry/MedSurg (Inpatient). - Status is Inpatient Admission. tl2 - Condition is Stable. - Problem is new. - Symptoms have improved. UTI on Admission? No Signatures: Dispatcher [employer] EDMS Rosa Scanlon RN RN Hermila Mahmood RN RN Sharona Greene RN RN tl2 Chadwick Vaughn MD MD wa Botello, Elizabeth eb Corrections: (The following items were deleted from the chart) 21: 21:24 Hospitalization Ordered by Shannan Curran MD for Inpatient Admission. Preliminary eb diagnosis is Acute Bilateral Interstitial Pneumonia. Bed requested for Telemetry/MedSurg (Inpatient). Status is Inpatient Admission. Condition is Stable. Problem is new. Symptoms have improved. UTI on Admission? No. wa 22:34 21:29 09/10/2017 21:24 Hospitalization Ordered by Shannan Curran MD for Inpatient kl Admission. Preliminary diagnosis is Acute Bilateral Interstitial Pneumonia. Bed requested for Telemetry/MedSurg (Inpatient). Status is Inpatient Admission. Condition is Stable. Problem is new. Symptoms have improved. UTI on Admission? No. eb 09/11 01:27 09/10 22:34 09/10/2017 21:24 Hospitalization Ordered by Shannan Curran MD for Inpatient tl2 Admission. Preliminary diagnosis is Acute Bilateral Interstitial Pneumonia. Bed requested for Telemetry/MedSurg (Inpatient). Status is Inpatient Admission. Condition is Stable. Problem is new. Symptoms have improved. UTI on Admission? No. kl
[2017-09-10] MEDS ORDERED: CEFTRIAXONE 1000 MG/VIAL ONE (21:30)
[2017-09-10] MEDS ORDERED: NA CHLORIDE 0.9% 100 ML IV ONE (21:30)
[2017-09-10] MEDS ORDERED: AZITHROMYCIN 500 MG/250 ML BAG ONE (21:30)
--- NOTE | 2017-09-10 22:13 | P.HP ---
Certification for Inpatient Patient admitted to: Inpatient With expected LOS: >2 Midnights Practitioner: I am a practitioner with admitting privileges, knowledge of patient current condition, hospital course, and medical plan of care. Services: Services provided to patient in accordance with Admission requirements found in Title 42 Section 412.3 of the Code of Federal Regulations Patient History Date of Service: 09/10/17 Reason for admission: COPD exacerbation History of Present Illness: Ms Jo is a 77 years old woman with history of COPD on home oxygen 3L by [place], HTN, DM II, CKD who start about 3 weeks ago with progressive SOB associated with productive cough. Her secretions changed color from white to green. She went to see her PCP at that time and was prescribed a course of antibiotic and oral steroids. Despite her medical treatment, the patient did not improve. Today , she was feeling even worse, had subjective fever and more SOB. At my encounter the patient was in non-distress, however, she was dyspneic. Lab work shows 13.3K WBC, lactate and procalcitonin are still pending. CXR remarkable for bilateral interstitial infiltrate, concerning for atypical pneumonia. O2 Sat 83% on RA, temp 99.1F. HR 109, BP 179/100. Allergies Penicillins Allergy (Verified 04/25/16 14:35) swelling Home medications list reviewed: Yes Home Medications: Aspirin 81 mg PO DAILY 04/17/16 Atorvastatin Calcium [Lipitor*] 20 mg PO DAILY 04/17/16 Duloxetine HCl [Cymbalta] 60 mg PO DAILY 04/17/16 Fenofibrate [Tricor*] 145 mg PO DAILY 04/17/16 Gabapentin [Neurontin*] 300 mg PO TID 04/17/16 Lisinopril 40 mg PO DAILYPRN PRN 04/17/16 Metformin HCl [Glucophage*] 500 mg PO DAILYPRN PRN 04/17/16 Multivit-Min/Iron/Folic/Lutein [Centrum Silver Women Tablet] 1 tab PO DAILY 05/29 Sells-3/Dha/Epa/Fish Oil [Sells 3 500 Softgel] 1 cap PO BID 04/17/16 Oxycodone HCl 30 mg PO Q6HP PRN 04/17/16 Promethazine HCl 6 mg PO Q6HP PRN 04/17/16 Trazodone HCl [Desyrel] 100 mg PO BEDTIME 04/17/16 Amlodipine [Norvasc*] 10 mg PO DAILY #30 tab 04/19/16 Metoprolol Tartrate [Lopressor*] 25 mg PO BID 6AM 6PM #60 tab 04/19/16 Carvedilol [Coreg*] 12.5 mg PO BID 6AM 6PM tab 03/30/17 Magnesium Oxide [Mag 0X*] 400 mg PO BID #60 tab 03/30/17 Naph,Mb-Db/K pH,Mbdb [Neutra-Phos Packet] 1 each PO DAILY #30 powd.pack Thiamine HCl [Vitamin B-1*] 100 mg PO DAILY #30 tablet 03/30/17 - Past Medical/Surgical History Diabetic: Yes -: COPD -: Chronic Kidney dz -: NIDDM -: Sciatica -: arthritis -: neuropathy -: hypercholesterimia -: HTN -: hysterectomy -: Partial cornea replacement L eye - Family History Father -: Heart disease, Hypertension, Stroke Mother -: Heart disease, Hypertension Notes: Tish - Social History Smoking Status: Current every day smoker Counseled patient to stop smoking for: less than 10 minutes Smoking therapy provided: Yes Patient receptive to therapy: No Alcohol use: No CD- Drugs: No Caffeine use: Yes Place of Residence: Home Review of Systems 10-point ROS is otherwise unremarkable Physical Examination - Physical Exam General: Alert, In no apparent distress HEENT: Atraumatic, PERRLA, Mucous membr. moist/pink, EOMI, Sclerae nonicteric Neck: Supple, 2+ carotid pulse no bruit, No LAD, Without JVD or thyroid abnormality Respiratory: Diminished, Expiratory wheezes, Rhonchi/gurgles Cardiovascular: Regular rate/rhythm, Normal S1 S2 Gastrointestinal: Normal bowel sounds, No tenderness Musculoskeletal: No tenderness Integumentary: No rashes Neurological: Normal speech, Normal strength at 5/5 x4 extr, Normal tone, Normal affect Lymphatics: No axilla or inguinal lymphadenopathy - Studies Laboratory Data (last 24 hrs) 09/10/17 19:28: PT 13.0 H, INR 1.10 09/10/17 19:28: WBC 13.3 H, Hgb 14.9, Hct 46.6 H, Plt Count 328 09/10/17 19:28: Sodium 140, Potassium 4.5, BUN 31 H, Creatinine 1.50 H, Glucose 156 H, Magnesium 2.2, Total Bilirubin 0.3, AST 13 L, ALT 22, Alkaline Phosphatase 86, Lipase 191 Assessment and Plan - Problems (Diagnosis) (1) Acute on chronic renal failure Onset Date: 04/17/16 Current Visit: No Status: Acute Qualifiers: Acute renal failure type: unspecified Chronic kidney disease stage: stage 3 (moderate) Qualified Code(s): N17.9 - Acute kidney failure, unspecified; N18.3 - Chronic kidney disease, stage 3 (moderate); N18.3 - Chronic kidney disease, stage 3 (moderate) (2) COPD exacerbation Onset Date: 04/17/16 Current Visit: No Status: Acute (3) HTN (hypertension) Onset Date: 04/17/16 Current Visit: No Status: Acute Qualifiers: Hypertension type: essential hypertension (4) Pneumonia Onset Date: 04/27/16 Current Visit: No Status: Acute Qualifiers: Pneumonia type: due to unspecified organism Laterality: bilateral Lung location: unspecified part of lung Qualified Code(s): J18.9 - Pneumonia, unspecified organism (5) Diabetes mellitus Onset Date: 04/17/16 Current Visit: No Status: Chronic Qualifiers: Diabetes mellitus type: type 2 Diabetes mellitus shelter insulin use: with shelter use Diabetes mellitus complication status: without complication Qualified Code(s): E11.9 - Type 2 diabetes mellitus without complications; 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 Will start empiric therapy with Rocephin and Azithromycin. Continue IV steroids and breathing treatment. Will consult Dr Meza for medication optimization. - Advance Directives Does patient have a Living Will: No Does patient have a Durable POA for Healthcare: No - Code Status/Comfort Care Code Status Assessed: Yes Code Status: Full Code
[2017-09-10] MEDS ORDERED: ONDANSETRON 4 MG/2 ML VIAL IV PRN (23:23)
[2017-09-10] MEDS ORDERED: NA CHLORIDE 0.9% 1,000 ML IV SCH (23:23)
[2017-09-10] MEDS ORDERED: ACETAMINOPHEN 500 MG TAB PO PRN (23:23)
[2017-09-10] MEDS: IPRATROPIUM BROM 0.5MG/2.5ML NEB SCH (23:52)
[2017-09-10] MEDS: ALBUTEROL 2.5 MG/3 ML NEB SOL NEB SCH (23:52)
[2017-09-11] MEDS: METHYLPREDNISOLONE 40 MG INJ IV SCH ×4 (00:35→17:27)
[2017-09-11] MEDS: IPRATROPIUM BROM 0.5MG/2.5ML NEB SCH ×5 (03:56→19:31)
[2017-09-11] MEDS: ALBUTEROL 2.5 MG/3 ML NEB SOL NEB SCH ×2 (03:56→08:00)
[2017-09-11] MEDS ORDERED: HYDRALAZINE HCL 20 MG/ML VIAL IV PRN (03:58)
[2017-09-11 04:40] LABS: Absolute Lymphocytes (CBC) 0.5 K/uL (0.7-4.9); Absolute Monocytes 0.1 K/uL (0.1-1.3); Absolute Neutrophil 15.7 K/uL (1.8-8.0); Basophils % 0.1 % (0-1.3); Lymphocytes % 3.2 % (15.3-44.8); MCH 28.6 pg (27.0-35.0); MCV 90.1 fL (80-100); MPV 8.3 fL (7.6-11.3); Monocytes % 0.5 % (3.3-12.3)
[2017-09-11 04:53] LABS: Potassium 4.9 mmol/L (3.5-5.1)
[2017-09-11 05:51] LABS: Blood Morphology Comment NOT SEEN (NOT SEEN); Platelet Estimate ADEQ
[2017-09-11] MEDS ORDERED: INSULIN -REGULAR HUMAN 50 UNIT/0.5 ML ML SQ SCH (07:30)
[2017-09-11] MEDS ORDERED: ALBUTEROL 2.5 MG/3 ML NEB SOL NEB PRN (08:24)
--- NOTE | 2017-09-11 08:28 | P.CNS ---
Date of Consult: 09/11/17 Reason for Consult: COPD exacerbation Chief Complaint: COPD exacerbation History of Present Illness: Patient is 77 years of age in a roast anxious lady history obtained from her daughter she has been short of breath for about 3 weeks complaining of cough congestion has a history of COPD heavy smoker 1 pack a day patient is on home oxygen using nebulizers at home the poor baseline animal exertion at home became progressively worse was exposed to sick family members admitted to the hospital with exacerbation of COPD all she does is takes albuterol at home not been using any long-acting bronchodilators patient is anxious nervous poor historian Allergies Penicillins Allergy (Verified 04/25/16 14:35) swelling Home Medications: Duloxetine HCl [Cymbalta] 60 mg PO DAILY 04/17/16 Gabapentin [Neurontin*] 300 mg PO TID 04/17/16 Oxycodone HCl 30 mg PO Q6HP PRN 04/17/16 Fenofibrate 1 tab PO DAILY 09/11/17 Lisinopril 1 tab PO DAILY 09/11/17 Meloxicam 2 tab PO DAILY 09/11/17 Promethazine HCl 1 tab PO DAILY 09/11/17 Tizanidine HCl 1 tab PO SEECOM 09/11/17 Trazodone [Desyrel*] 1 tab PO BEDTIME 09/11/17 Vortioxetine Hydrobromide [Brintellix] 10 mg PO DAILY 09/11/17 hydroCHLOROthiazide [Hydrochlorothiazide] 1 tab PO DAILY 09/11/17 - Past Medical/Surgical History Diabetic: Yes -: COPD -: Chronic Kidney dz -: NIDDM -: Sciatica -: arthritis -: neuropathy -: hypercholesterimia -: HTN -: hysterectomy -: Partial cornea replacement L eye - Family History Father Medical History: Heart disease, Hypertension, Stroke Mother Medical History: Heart disease, Hypertension Notes: Tish - Social History Smoking Status: Current every day smoker Alcohol use: No CD- Drugs: No Caffeine use: Yes Place of Residence: Home Review of Systems 10-point ROS is otherwise unremarkable General: Weakness, Malaise, Other (Patient is anxious nervous poor historian) Respiratory: Cough, Shortness of Breath Physical Examination Temp Pulse Resp BP Pulse Ox 98.6 F 103 H 18 154/72 H 93 09/11/17 06:14 09/11/17 06:14 09/11/17 04:00 09/11/17 06:14 09/11/17 04:00 General: Alert, Mild distress Neck: Supple Respiratory: Expiratory wheezes Cardiovascular: No edema, Regular rate/rhythm, Normal S1 S2 Gastrointestinal: Normal bowel sounds, Soft and benign Musculoskeletal: No clubbing, No swelling Laboratory Data (last 24 hrs) 09/10/17 19:28: PT 13.0 H, INR 1.10 09/10/17 19:28: WBC 13.3 H, Hgb 14.9, Hct 46.6 H, Plt Count 328 09/10/17 19:28: Sodium 140, Potassium 4.5, BUN 31 H, Creatinine 1.50 H, Glucose 156 H, Magnesium 2.2, Total Bilirubin 0.3, AST 13 L, ALT 22, Alkaline Phosphatase 86, Lipase 191 - Problems (1) COPD exacerbation Onset Date: 04/17/16 Current Visit: No Status: Acute Plan: Patient is 77 years of age heavy smoker admitted with progressive dyspnea for the past 3 weeks I suspect that she has COPD exacerbation chest x-rays clear Dc Zithromax reduce the dose of Solu-Medrol to 40 mg IV q. 8 and a long-acting bronchodilator patient needs to be setup with home laba, patient's blood pressure is little elevated oxygenation satisfactory patient is on narcotics at home labs reviewed white count is mildly elevated continue with IV fluids creatinine is elevated I have ordered D-dimer she has a moderate risk for thromboembolism if his elevated consider CT pulmonary angiogram patient does see a radio operator ground patient is hypertensive
--- NOTE | 2017-09-11 08:43 | EKG ---
Test Date: 2017-09-10 Test Time: 19:07:09 Oven Drier Tender: BERTO MEASUREMENT RESULTS: Intervals: Rate: 107 [place]: 114 QRSD: 70 QT: 312 QTc: 416 [place]: P: 81 [place]: 114 QRS: 62 T: 81 INTERPRETIVE STATEMENTS: Sinus tachycardia Biatrial enlargement Cannot rule out septal infarct, age undetermined Abnormal ECG Compared to ECG 03/29/2017 09:29:50 Atrial abnormality now present Questionable myocardial infarct finding now present Electronically Signed On 09-11-17 08:42:27 CDT by Hao Matthew
[2017-09-11] MEDS: ARFORMOTEROL TARTRATE 15 MCG/2 ML VIAL.NEB NEB SCH ×2 (08:57→19:31)
[2017-09-11] MEDS ORDERED: CEFTRIAXONE 1 GM/NS 50 ML 1 GM/50 ML BAG IV SCH (09:00)
[2017-09-11] MEDS ORDERED: CEFTRIAXONE/SWI 1gm 1 GM/10 ML SYR IV SCH (09:00)
[2017-09-11] MEDS ORDERED: AZITHROMYCIN IV 500 MG in NA CHLORIDE 0.9% 250 ML IVPB SCH (09:00)
[2017-09-11 09:14] LABS: T3 Free 1.6 pg/mL (2.18-3.98); Thyroid Stimulating Hormone 0.53 uIU/mL (0.36-3.74)
[2017-09-11 09:16] LABS: Urine Appearance CLEAR; Urine Bilirubin NEGATIVE (NEG); Urine Blood NEGATIVE (NEG); Urine Color YELLOW; Urine Glucose 1+ (NEG); Urine Protein 1+ (NEG); Urine Specific Gravity 1.025 (1.005-1.030); Urine Urobilinogen 0.2 mg/dL (0.2-1.0)
[2017-09-11 09:25] LABS: Urine Microscopic Reflex ORDER UMIC
[2017-09-11 09:26] LABS: Urine Bacteria <20 /HPF (<20); Urine Culture Reflex Order NOT NEEDED; Urine RBC <5 /HPF (NONE SEEN)
[2017-09-11] MEDS ORDERED: TRAZODONE 150 MG TAB PO PRN (09:48)
--- NOTE | 2017-09-11 09:55 | P.PN ---
Subjective Date of Service: 09/11/17 Primary Care Provider: Dr. Murcia; Pulmonary-Dr. Rousseau Chief Complaint: COPD exacerbation Subjective: Other (Patient do well this time. No respiratory distress noted.) Physical Examination - Vital Signs Temperature: 97.9 F Blood Pressure: 180/86 Pulse: 110 Respirations: 24 Pulse Ox (%): 93 - Physical Exam General: Alert, In no apparent distress, Oriented x3, Cooperative HEENT: Atraumatic Neck: Supple Respiratory: Expiratory wheezes (Bilateral) Cardiovascular: Abnormal pulses (Sinus tachycardia) Gastrointestinal: Normal bowel sounds, Soft and benign, Non-distended, No tenderness, No masses, No rebound, No guarding Musculoskeletal: No erythema, No tenderness, No warmth Integumentary: No tenderness/swelling, No erythema, No warmth, No cyanosis Neurological: Normal speech, Normal strength at 5/5 x4 extr, Normal tone, Normal affect - Studies Laboratory Data (last 24 hrs) 09/10/17 19:28: PT 13.0 H, INR 1.10 09/10/17 19:28: WBC 13.3 H, Hgb 14.9, Hct 46.6 H, Plt Count 328 09/10/17 19:28: Sodium 140, Potassium 4.5, BUN 31 H, Creatinine 1.50 H, Glucose 156 H, Magnesium 2.2, Total Bilirubin 0.3, AST 13 L, ALT 22, Alkaline Phosphatase 86, Lipase 191 Medications List Reviewed: Yes Assessment & Plan - Problems (Diagnosis) (1) COPD (chronic obstructive pulmonary disease) Current Visit: Yes Status: Acute Plan: Patient with COPD exacerbation. Patient uses home oxygen. Will continue with COPD treatment. Will monitor closely. Pulmonology consulted to further evaluate. Pulmonology recommended D-dimer as patient is risk for pulmonary embolism. If abnormal patient may require V/Q scan due to her renal dysfunction. Qualifiers: COPD type: COPD with acute exacerbation Qualified Code(s): J44.1 - Chronic obstructive pulmonary disease with (acute) exacerbation (2) GERD (gastroesophageal reflux disease) Current Visit: Yes Status: Chronic Plan: Will continue PPI. Qualifiers: Esophagitis presence: esophagitis presence not specified Qualified Code(s) : K21.9 - Gastro-esophageal reflux disease without esophagitis (3) Depression Current Visit: Yes Status: Chronic Plan: Will review and restart home medication. Qualifiers: Depression Type: unspecified Qualified Code(s): F32.9 - Major depressive disorder, single episode, unspecified (4) Chronic pain Current Visit: Yes Status: Chronic Plan: Patient with chronic pain. Will provide medication. Will review home meds. Qualifiers: Chronic pain type: chronic pain syndrome Qualified Code(s): G89.4 - Chronic pain syndrome (5) Acute on chronic renal failure Onset Date: 04/17/16 Current Visit: No Status: Acute Plan: Patient with acute on chronic renal disease. Patient appears dry. Will continue IV fluids. Will hold lisinopril and hydrochlorothiazide. March renal ultrasound showed medical renal disease. Will consult Nephrology to further evaluate. Qualifiers: Acute renal failure type: unspecified Chronic kidney disease stage: stage 3 (moderate) Qualified Code(s): N17.9 - Acute kidney failure, unspecified; N18.3 - Chronic kidney disease, stage 3 (moderate); N18.3 - Chronic kidney disease, stage 3 (moderate) (6) HTN (hypertension) Onset Date: 04/17/16 Current Visit: No Status: Chronic Plan: Will hold lisinopril and hydrochlorothiazide due to renal dysfunction. Will start metoprolol 50 mg 1 pill twice daily. Further adjustment may be required. Will monitor closely. Will check echocardiogram. Qualifiers: Hypertension type: essential hypertension (7) Diabetes mellitus Onset Date: 04/17/16 Current Visit: No Status: Chronic Plan: Will check A1c. Will provide sliding scale. Qualifiers: Diabetes mellitus type: type 2 Diabetes mellitus medical terminologist insulin use: with medical terminologist use Diabetes mellitus complication status: without complication Qualified Code(s): E11.9 - Type 2 diabetes mellitus without complications; Z79.4 - buttermaker (current) use of insulin (8) Hyperlipidemia Current Visit: Yes Status: Chronic Plan: Will continue with her medication. Qualifiers: Hyperlipidemia type: unspecified Qualified Code(s): E78.5 - Hyperlipidemia , unspecified (9) Pneumonia Onset Date: 04/27/16 Current Visit: No Status: Acute Plan: Atypical pneumonia suspected. Will continue antibiotic therapy. Will recheck chest x-ray in the morning. Will maintain sats above 90%. Will provide DVT prophylaxis. Pulmonology consulted. Qualifiers: Pneumonia type: due to unspecified organism Laterality: bilateral Lung location: unspecified part of lung Qualified Code(s): J18.9 - Pneumonia, unspecified organism Discharge Plan: Home Plan to discharge in: Greater than 2 days Time Spent Managing Pts Care (In Minutes): 55
[2017-09-11] MEDS: GABAPENTIN 300 MG CAP PO SCH ×2 (12:51→21:52)
[2017-09-11] MEDS: Levofloxacin 250mg IV 250 MG/50 ML BAG IV SCH (12:52)
[2017-09-11] MEDS: NA CHLORIDE 0.9% 1,000 ML IV SCH ×2 (12:52→21:51)
[2017-09-11] MEDS: INSULIN -REGULAR HUMAN 50 UNIT/0.5 ML ML SQ SCH ×3 (12:52→21:53)
[2017-09-11] MEDS: BENZONATATE 100 MG CAP PO PRN (15:56)
[2017-09-11] MEDS: AMLODIPINE 5 MG TAB PO SCH (17:28)
[2017-09-11] MEDS: METOPROLOL TAR 50 MG TAB PO SCH (17:28)
[2017-09-11] MEDS ORDERED: AMLODIPINE 5 MG TAB PO ONE (21:25)
[2017-09-11] MEDS ORDERED: ENALAPRILAT 1.25 MG/ML VIAL IV ONE (23:49)
[2017-09-12] MEDS: METHYLPREDNISOLONE 40 MG INJ IV SCH ×2 (00:17→08:45)
[2017-09-12] MEDS: IPRATROPIUM BROM 0.5MG/2.5ML NEB SCH ×4 (01:34→19:32)
[2017-09-12] MEDS: BENZONATATE 100 MG CAP PO PRN ×4 (03:56→21:10)
[2017-09-12 05:16] LABS: Absolute Lymphocytes (CBC) 0.5 K/uL (0.7-4.9); Absolute Monocytes 0.2 K/uL (0.1-1.3); Absolute Neutrophil 19.9 K/uL (1.8-8.0); Hematocrit 45.2 % (36.0-45.0); Lymphocytes % 2.5 % (15.3-44.8); MCH 28.7 pg (27.0-35.0); MPV 8.3 fL (7.6-11.3); Monocytes % 0.9 % (3.3-12.3); RBC Red Blood Cell Count 5.02 M/uL (3.86-4.86)
[2017-09-12 05:36] LABS: Potassium 4.4 mmol/L (3.5-5.1)
[2017-09-12] MEDS: INSULIN -REGULAR HUMAN 50 UNIT/0.5 ML ML SQ SCH ×4 (07:46→20:07)
[2017-09-12] MEDS: ARFORMOTEROL TARTRATE 15 MCG/2 ML VIAL.NEB NEB SCH ×2 (08:20→19:32)
[2017-09-12 08:35] LABS: Blood Morphology Comment NOT SEEN (NOT SEEN); Platelet Estimate ADEQ
[2017-09-12] MEDS: METOPROLOL TAR 50 MG TAB PO SCH ×3 (08:45→20:06)
[2017-09-12] MEDS: DULOXETINE 30 MG CAP PO SCH (08:46)
[2017-09-12] MEDS: AMLODIPINE 5 MG TAB PO SCH ×2 (08:46→20:05)
[2017-09-12] MEDS: FENOFIBRATE 160 MG TAB PO SCH (08:47)
[2017-09-12] MEDS: GABAPENTIN 300 MG CAP PO SCH ×3 (08:47→20:04)
[2017-09-12] MEDS: HOME MED 1 EA UNK (Vortioxetine Hydrobromide [Trintellix] 10 MG) PO SCH (08:47)
--- NOTE | 2017-09-12 10:45 | P.PN ---
Subjective Date of Service: 09/12/17 Primary Care Provider: Dr. Murcia; Pulmonary-Dr. Rousseau Chief Complaint: COPD exacerbation Subjective: Improving (Patient feeling better. Better hydrated.) Physical Examination - Vital Signs Temperature: 97.6 F Blood Pressure: 181/87 Pulse: 105 Respirations: 18 Pulse Ox (%): 95 - Physical Exam General: Alert, In no apparent distress, Oriented x3, Cooperative HEENT: Atraumatic Neck: Supple Respiratory: Expiratory wheezes (Improved) Cardiovascular: Abnormal pulses (Sinus tachycardia improved) Gastrointestinal: Normal bowel sounds, Soft and benign, Non-distended, No tenderness, No masses, No rebound, No guarding Musculoskeletal: No erythema, No tenderness, No warmth Integumentary: No tenderness/swelling, No erythema, No warmth, No cyanosis Neurological: Normal speech, Normal strength at 5/5 x4 extr, Normal tone, Normal affect - Studies Medications List Reviewed: Yes Assessment & Plan - Problems (Diagnosis) (1) COPD (chronic obstructive pulmonary disease) Current Visit: Yes Status: Acute Plan: Patient with COPD exacerbation and pneumonia. Patient uses home oxygen. Will continue with COPD medication. Will transition Solu-Medrol to oral prednisone. D-dimer negative. Continue IV antibiotic therapy. Encourage ambulation. Will provide incentive spirometer. Anticipate discharge tomorrow if improved. Patient has been seen by pulmonology. I will turn the service over to Dr. Lock tomorrow. I will go over the plan of care with her. Qualifiers: COPD type: COPD with acute exacerbation Qualified Code(s): J44.1 - Chronic obstructive pulmonary disease with (acute) exacerbation (2) GERD (gastroesophageal reflux disease) Current Visit: Yes Status: Chronic Plan: Will continue PPI. Qualifiers: Esophagitis presence: esophagitis presence not specified Qualified Code(s) : K21.9 - Gastro-esophageal reflux disease without esophagitis (3) Depression Current Visit: Yes Status: Chronic Plan: Will continue with home medication Qualifiers: Depression Type: unspecified Qualified Code(s): F32.9 - Major depressive disorder, single episode, unspecified (4) Chronic pain Current Visit: Yes Status: Chronic Plan: Patient with chronic pain. Will provide medication as needed. Qualifiers: Chronic pain type: chronic pain syndrome Qualified Code(s): G89.4 - Chronic pain syndrome (5) Acute on chronic renal failure Onset Date: 04/17/16 Current Visit: No Status: Acute Plan: Patient with acute on chronic renal disease. Likely from dehydration. Will continue IV fluids. Renal function improved. Lisinopril and hydrochlorothiazide currently on hold. Renal ultrasound done in March shows medical renal disease. Qualifiers: Acute renal failure type: unspecified Chronic kidney disease stage: stage 3 (moderate) Qualified Code(s): N17.9 - Acute kidney failure, unspecified; N18.3 - Chronic kidney disease, stage 3 (moderate); N18.3 - Chronic kidney disease, stage 3 (moderate) (6) HTN (hypertension) Onset Date: 04/17/16 Current Visit: No Status: Chronic Plan: Will continue to hold lisinopril and hydrochlorothiazide due to renal dysfunction. Blood pressure is still not well controlled. Will increase metoprolol to 100 mg 1 pill twice daily. Patient on Norvasc 5 mg twice daily. Will continue to adjust. Will check echocardiogram. Qualifiers: Hypertension type: essential hypertension (7) Diabetes mellitus Onset Date: 04/17/16 Current Visit: No Status: Chronic Plan: Will check A1c. Will provide sliding scale. 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 Qualifiers: Hyperlipidemia type: unspecified Qualified Code(s): E78.5 - Hyperlipidemia , unspecified (9) Pneumonia Onset Date: 04/27/16 Current Visit: No Status: Acute Plan: Atypical pneumonia suspected. Will continue antibiotic therapy. Recheck chest x-ray. Will maintain sats above 90%. Will provide DVT prophylaxis. Pulmonology consulted. Qualifiers: Pneumonia type: due to unspecified organism Laterality: bilateral Lung location: unspecified part of lung Qualified Code(s): J18.9 - Pneumonia, unspecified organism Discharge Plan: Home Plan to discharge in: 24 Hours - Code Status/Comfort Care Code Status Assessed: Yes (Patient full code) Time Spent Managing Pts Care (In Minutes): 55
[2017-09-12] MEDS: Levofloxacin 250mg IV 250 MG/50 ML BAG IV SCH (10:58)
[2017-09-12] MEDS: predniSONE 20 MG TAB PO SCH ×2 (11:00→20:05)
[2017-09-12] MEDS: NA CHLORIDE 0.9% 1,000 ML IV SCH ×2 (11:02→20:05)
--- NOTE | 2017-09-12 12:04 | RAD REPORT ---
EXAM DESCRIPTION: RAD - Chest Pa And Lat (2 Views) - 09/12/2017 6:58 am CLINICAL HISTORY: follow up SOB, COPD, Suspect pneumonia Chest pain. COMPARISON: Chest Pa And Lat (2 Views) dated 09/10/2017; Chest Single View dated 04/14/2017; Chest Sin gle View dated 03/29/2017; Chest Pa And Lat (2 Views) dated 12/13/2016 FINDINGS: The lungs are mildly emphysematous without focal infiltrate seen. Previously noted interst itial prominence has improved. The heart is normal in size. No displaced fractures. IMPRESSION: Mild improvement in lung aeration since comparative study.
--- NOTE | 2017-09-12 14:56 | CON ---
Date of Consultation: 09/11/2017 NEPHROLOGY CONSULTATION Chief Complaint: Acute kidney injury. History Of Present Illness: The patient was found to have elevated BUN of 31, creatinine 1.50. The patient presented to the hospital because of severe shortness of breath and weakness. She has underlying history of COPD. Lactic acid was elevated up to 4.5. The patient was found to have nonoliguric moderately severe acute kidney injury associated with shortness of breath. Carbon dioxide was 39. Sodium 140, potassium 4.5, chloride 97, creatinine 1.5, and BUN 31, glucose 156, calcium 9.7, magnesium 2.2. Urinalysis was obtained and did not show active urinary sediment. The patient had workup done for proteinuria, it showed 2+ protein. There is no evidence of active urinary sediment. No evidence of urinary tract infection. Urine rbc less than 5, urine wbc less than 5. The patient does not have lower urinary tract symptoms. Renal ultrasound is pending at this point. The patient is a 77-year-old woman with history of COPD. She is oxygen dependent and has been using oxygen at home 3 L via nasal cannula. She has history of chronic kidney disease stage 3, diabetes mellitus, diabetic kidney disease associated with proteinuria. She was seen by PCP because of shortness of breath. She was started on antibiotics and steroids because she was complaining of productive cough with white to green sputum. Despite treatment she was not improving and she was feeling weak, has had decreased p.o. intake. Denies diarrhea, nausea, vomiting. Lab work showed elevated white count up to 13,300, elevated lactate, procalcitonin was ordered to rule out sepsis. The patient was found to have bilateral interstitial infiltrate when chest x-ray was done and it was concerning for pneumonia. The patient was found to have severe hypoxemia. O2 saturation on room air was 83%. She was found to have accelerated hypertension, blood pressure was 171/100. Review of Systems: The patient is complaining of fatigue, decreased p.o. intake. Eyes: Denies vision changes. Ears, Nose, Mouth, and Throat: Denies sore throat or earache. Respiratory: She has severe shortness of breath at rest. Denies wheezing, hemoptysis. Has productive cough with white and yellow sputum. Cardiovascular: Denies palpitation, syncope. GI: Denies nausea or vomiting. Denies melena, hematemesis. : Denies dysuria, hematuria. Musculoskeletal: Complains of generalized weakness. All other system reviewed and all are negative. Past Medical History: Diabetes mellitus, chronic kidney disease stage 3, non- insulin diabetes mellitus, sciatica, osteoarthritis, peripheral neuropathy, hypercholesterolemia, hypertension, hysterectomy, COPD. Family History: Heart disease, hypertension, CVA. Mother had hypertension, lupus, and heart disease. Social History: Denies alcohol or illicit drugs. She is active smoker. Physical Examination: General: The patient is in mild respiratory distress. Eyes: Anicteric sclerae. EOMI. Ears, nose, mouth and Throat: Oral mucosa moist. No pallor. Neck: Supple. No bruits. Lungs: Diminished breath sound bilaterally. Distant breath sounds and wheezes present bilaterally. Rhonchi and crackles bilaterally present. Abdomen: Soft, benign, nontender. No rebound. No guarding. No flank tenderness. Extremities: No edema. No clubbing. No cyanosis. Neurological: Moving extremities. Cranial nerves intact. No tremor. Laboratory Data: Potassium 4.5, creatinine 1.5, BUN 35, sodium 140, glucose 156 , magnesium 2.2, bilirubin 0.3, AST 13, ALT 22, AP 86, lipase 191. Impression And Plan: 1. Acute on chronic kidney injury, acute kidney injury due to prerenal azotemia, volume depletion. The patient will continue IV fluids. Recommend to avoid nonsteroidal anti-inflammatory medication. Adjust medication to prevent hypotensive episodes. The patient presented with hypertensive urgency. Continue to adjust blood pressure medication. 2. Chronic obstructive pulmonary disease exacerbation. Continue nebulizer and bronchodilators with steroids and antibiotics. 3. Pneumonia. Pending workup with sputum culture, blood culture obtained. 4. Diabetes mellitus. Continue insulin. 5. Elevated lactic acid. Recommend further workup for sepsis. 6. Proteinuria, likely diabetic kidney disease. There is no active urinary sediment. Proteinuria workup will be done to rule out monoclonal gammopathy of unknown significance. NELL/WILBERTO Voice ID: [id number] Report ID: [id number] CHAYA
[2017-09-12] MEDS: ENOXAPARIN 40 MG/0.4 ML SQ SCH (17:05)
--- NOTE | 2017-09-12 20:56 | RAD REPORT ---
EXAM DESCRIPTION: US - Renal Ultrasound-Complete - 09/12/2017 8:20 pm CLINICAL HISTORY: trang Flank pain COMPARISON: Renal Ultrasound-Complete dated 03/30/2017 FINDINGS: Both kidneys are normal in size, shape and echotexture. The right kidney measures 10.9 x 4.5 x 4.0 cm. No hydronephrosis, focal mass or perinephric fluid. The left kidney measures 10.5 x 4.8 x 4.5 cm. No hydronephrosis, focal mass or perinephric fluid. 18 x 12 mm cyst is present, benign in appearance. The urinary bladder is incompletely distended without gross abnormality seen. IMPRESSION: No worrisome abnormality detected.
--- NOTE | 2017-09-12 22:04 | PN ---
Date of Progress Note: 09/12/2017 Chief Complaint: Acute kidney injury. History Of Present Illness: Acute kidney injuries secondary to prerenal azotemia, nonoliguric, acute tubular necrosis. The patient on arrival to the hospital was found to have elevated BUN to 31, creatinine 1.5. The patient has had severe shortness of breath, weakness. She was found to have elevated lactic acid and workup is pending to rule out sepsis. The patient has severe COPD exacerbation. She was found to have prerenal azotemia and started on IV fluids. She has history of active tobacco and I discussed with the patient and her daughter at the bedside risk of tobacco including severe COPD and malignancy. The patient is oxygen dependent and she is on 3 L nasal cannula at home. She developed cough with greenish sputum. She denies nausea, vomiting, although she had poor p.o. intake. Review of Systems: Denies fever or chills. Physical Examination: Lungs: Few crackles at bases. Heart: S1, S2. Abdomen: Soft, benign. Extremities: No edema. Laboratory Work: WBC 20.6, hemoglobin 14.4, platelet count is 293,000. Glucose 198, 125, sodium 137, potassium 4.4, chloride 99, CO2 of 32, BUN 24, creatinine 0.8, calcium 8.4. Impression And Plan: 1. Acute kidney injury in recovery phase. Monitor urine output. Avoid nonsteroidal anti-inflammatory medication. 2. Shortness of breath due to chronic obstructive pulmonary disease exacerbation and pneumonia. Continue antibiotics. 3. The patient may require diuretic for volume control. 4. Hypertension. Continue blood pressure medication. 5. Proteinuria screen is ordered and pending. 6. Diabetes mellitus. Continue insulin. 7. Acute kidney injury. Renal ultrasound pending to rule out obstructive uropathy. EB/MODL Voice ID: [id number] Report ID: [id number] CHAYA
[2017-09-12] MEDS ORDERED: AMLODIPINE 5 MG TAB PO ONE (23:54)
[2017-09-13] MEDS: IPRATROPIUM BROM 0.5MG/2.5ML NEB SCH ×4 (01:58→20:31)
[2017-09-13] MEDS: BENZONATATE 100 MG CAP PO PRN (05:26)
[2017-09-13] MEDS: ENALAPRILAT 1.25 MG/ML VIAL IV PRN ×2 (05:34→21:20)
[2017-09-13] MEDS: NA CHLORIDE 0.9% 1,000 ML IV SCH ×2 (05:34→21:24)
[2017-09-13 05:59] LABS: Absolute Lymphocytes (CBC) 1.1 K/uL (0.7-4.9); Absolute Monocytes 0.3 K/uL (0.1-1.3); Basophils % 0.3 % (0-1.3); Lymphocytes % 7.2 % (15.3-44.8); MCH 28.8 pg (27.0-35.0); MCV 89.2 fL (80-100); MPV 8.2 fL (7.6-11.3); Monocytes % 2.2 % (3.3-12.3); RBC Red Blood Cell Count 5.05 M/uL (3.86-4.86)
[2017-09-13 06:13] LABS: Magnesium 1.9 mg/dL (1.8-2.4); Potassium 3.8 mmol/L (3.5-5.1)
[2017-09-13] MEDS: INSULIN -REGULAR HUMAN 50 UNIT/0.5 ML ML SQ SCH ×4 (07:30→21:00)
[2017-09-13] MEDS: ARFORMOTEROL TARTRATE 15 MCG/2 ML VIAL.NEB NEB SCH ×2 (08:37→20:30)
[2017-09-13] MEDS ORDERED: POTASSIUM 25 MEQ EFFERV TAB PO ONE (09:00)
[2017-09-13] MEDS: HOME MED 1 EA UNK (Vortioxetine Hydrobromide [Trintellix] 10 MG) PO SCH (09:00)
[2017-09-13] MEDS: Levofloxacin 250mg IV 250 MG/50 ML BAG IV SCH (09:20)
[2017-09-13] MEDS: DULOXETINE 30 MG CAP PO SCH (09:22)
[2017-09-13] MEDS: predniSONE 20 MG TAB PO SCH ×2 (09:22→21:19)
[2017-09-13] MEDS: AMLODIPINE 5 MG TAB PO SCH ×2 (09:23→21:19)
[2017-09-13] MEDS: METOPROLOL TAR 50 MG TAB PO SCH (09:23)
[2017-09-13] MEDS: FENOFIBRATE 160 MG TAB PO SCH (09:24)
[2017-09-13] MEDS: GABAPENTIN 300 MG CAP PO SCH ×3 (09:24→21:19)
--- NOTE | 2017-09-13 12:01 | ECHO ---
HEIGHT: 5 ft 4 in WEIGHT: 113 lb 14.04 oz DATE OF STUDY: 09/13/[address]: Jhonatan Tang DO 2-DIMENSIONAL: YES M.MODE: YES DOPPLER: YES COLOR FLOW: YES TDS: PORTABLE: DEFINITY: BUBBLE STUDY: DIAGNOSIS: SHORTNESS OF BREATH CARDIAC HISTORY: CATHERIZATION: NO SURGERY: NO PROSTHETIC VALVE: NO PACEMAKER: NO MEASUREMENTS (cm) DIASTOLIC (NORMALS) SYSTOLIC (NORMALS) IVSd 1.2 (0.6-1.2) LA Diam 3.2 (1.9-4.0) LVEF 75% LVIDd 3.8 (3.5-5.7) LVIDs 2.1 (2.0-3.5) %FS 43% LVPWd 1.2 (0.6-1.2) Ao Diam 2.4 (2.0-3.7) 2 DIMENSIONAL ASSESSMENT: RIGHT ATRIUM: NORMAL LEFT ATRIUM: DILATED RIGHT VENTRICLE: NORMAL LEFT VENTRICLE: LEFT VENTRICULAR HYPERTROPHY TRICUSPID VALVE: NORMAL MITRAL VALVE: NORMAL PULMONIC VALVE: NORMAL AORTIC VALVE: STENOSIS, MILD PERICARDIAL EFFUSION: NONE AORTIC ROOT: NORMAL LEFT VENTRICULAR WALL MOTION: NORMAL DOPPLER/COLOR FLOW: MILD AORTIC STENOSIS. PEAK GRADIENT 20 mmHg. ESTIMATED AORTIC VALVE AREA 1.7 CENTIMETERS SQUARED. NORMAL RIGHT VENTRICULAR SYSTOLIC PRESSURE. COMMENTS: NORMAL LEFT VENTRICULAR EJECTION FRACTION. LEFT VENTRICULAR HYPERTROPHY. DILATED LEFT ATRIUM. MILD AORTIC STENOSIS. MILD AORTIC REGURGITATION. MILD TRICUSPID REGURGITATION. TECHNOLOGIST: JANIA ARRIAGA
[2017-09-13] MEDS: LISINOPRIL 20 MG TAB PO SCH (14:22)
[2017-09-13] MEDS: hydroCHLOROthiazide 12.5 MG CAP PO SCH (14:23)
[2017-09-13] MEDS: LOSARTAN POTASSIUM 50 MG TABLET PO SCH (14:23)
--- NOTE | 2017-09-13 14:56 | P.PN ---
Subjective Date of Service: 09/13/17 Primary Care Provider: Dr. Murcia; Pulmonary-Dr. Rousseau Chief Complaint: COPD exacerbation Pt seen and examined with RN. Chart Reviewed. Case DW with Pulmonology. Currently pt is awaiting PT consult for Placement. Review of Systems General: As per HPI Physical Examination - Vital Signs Temperature: 97.1 F Blood Pressure: 174/81 Pulse: 75 Respirations: 18 Pulse Ox (%): 96 - Physical Exam General: Alert, In no apparent distress HEENT: Atraumatic, PERRLA, EOMI Neck: Supple, JVD not distended Respiratory: Clear to auscultation bilaterally, Normal air movement Cardiovascular: Regular rate/rhythm, Normal S1 S2 Gastrointestinal: Normal bowel sounds, No tenderness Musculoskeletal: No tenderness Integumentary: No rashes Neurological: Normal speech, Normal tone, Normal affect Lymphatics: No axilla or inguinal lymphadenopathy - Studies Medications List Reviewed: Yes Assessment & Plan - Problems (Diagnosis) (1) COPD exacerbation Onset Date: 04/17/16 Current Visit: No Status: Acute Plan: COPD excerbation 2.2 to PNA -Duonebs with Xopenex, Oxygen and Steroids -On Abx for now -Pulmonology consulted. Appreciate Reccs -Will need LABA upon DC (2) PNA (pneumonia) Onset Date: 09/13/17 Current Visit: Yes Status: Acute Plan: PNA on xray. Improving Clinically today -IV levaquin for now. -Culture negative thus far -Pulmonology consulted. Qualifiers: Pneumonia type: due to unspecified organism Laterality: unspecified laterality Lung location: unspecified part of lung Qualified Code(s): J18.9 - Pneumonia, unspecified organism (3) Depression Onset Date: 09/13/17 Current Visit: Yes Status: Chronic Qualifiers: Depression Type: unspecified Qualified Code(s): F32.9 - Major depressive disorder, single episode, unspecified (4) GERD (gastroesophageal reflux disease) Onset Date: 09/13/17 Current Visit: Yes Status: Chronic Qualifiers: Esophagitis presence: esophagitis presence not specified Qualified Code(s) : K21.9 - Gastro-esophageal reflux disease without esophagitis (5) Hyperlipidemia Onset Date: 09/13/17 Current Visit: Yes Status: Chronic Qualifiers: Hyperlipidemia type: unspecified Qualified Code(s): E78.5 - Hyperlipidemia , unspecified (6) Diabetes mellitus Onset Date: 04/17/16 Current Visit: No Status: Chronic Qualifiers: Diabetes mellitus type: type 2 Diabetes mellitus custodial insulin use: with custodial use Diabetes mellitus complication status: with kidney complications Diabetes mellitus complication detail: with chronic kidney disease Chronic kidney disease stage: stage 3 (moderate) Qualified Code(s): E11.22 - Type 2 diabetes mellitus with diabetic chronic kidney disease; N18.3 - Chronic kidney disease, stage 3 (moderate); 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
[2017-09-13] MEDS: ENOXAPARIN 40 MG/0.4 ML SQ SCH (16:44)
[2017-09-14] MEDS: IPRATROPIUM BROM 0.5MG/2.5ML NEB SCH ×3 (01:48→13:30)
--- NOTE | 2017-09-14 02:19 | PN ---
Date of Progress Note: 09/13/2017 Chief Complaint: Acute kidney injury secondary to prerenal azotemia, nonoliguric with mild element o f nonoliguric ATN. Creatinine was 1.5 and BUN was 31. Renal function has gradually improved. The p atient today is feeling better. Review of Systems: Denies fever and chills. Physical Examination: General: Few rhonchi. Heart: S1, S2. Abdomen: Soft, benign. Extremities: No edema. Laboratory Data: Sodium 137, potassium 3.8, chloride 100, CO2 30, BUN 19, creatinine 0.8, glucose 17 5, calcium 8.0, magnesium 1.9. Impression And Plan: Acute kidney injury with prerenal azotemia. Treatment was ordered with IV flui ds, and she responded to IV fluids. Hydration by mouth will be adjusted to optimal volume correction . Renal ultrasound did not show obstructive uropathy. There is a benign cyst present. The patient delilah l follow up with leach tank tender for further workup. Hypertension accelerated. Advance blood pressure medication. The patient may be a candidate for ROB inhibitor when renal function is at baseline. NELL/WILBERTO Voice ID: [id number] Report ID: [id number]
[2017-09-14] MEDS: NA CHLORIDE 0.9% 1,000 ML IV SCH (03:40)
[2017-09-14] MEDS: ENALAPRILAT 1.25 MG/ML VIAL IV PRN (05:32)
[2017-09-14 06:10] LABS: Absolute Lymphocytes (CBC) 0.8 K/uL (0.7-4.9); Absolute Monocytes 0.2 K/uL (0.1-1.3); Basophils % 0.3 % (0-1.3); Hematocrit 44.9 % (36.0-45.0); Lymphocytes % 7.3 % (15.3-44.8); MCH 29.3 pg (27.0-35.0); MCV 88.5 fL (80-100); MPV 8.3 fL (7.6-11.3); Monocytes % 2.2 % (3.3-12.3); RBC Red Blood Cell Count 5.08 M/uL (3.86-4.86)
[2017-09-14 06:13] LABS: Potassium 4.3 mmol/L (3.5-5.1)
[2017-09-14] MEDS: INSULIN -REGULAR HUMAN 50 UNIT/0.5 ML ML SQ SCH ×2 (07:30→11:30)
[2017-09-14] MEDS: ARFORMOTEROL TARTRATE 15 MCG/2 ML VIAL.NEB NEB SCH (07:36)
[2017-09-14] MEDS: predniSONE 20 MG TAB PO SCH (08:54)
[2017-09-14] MEDS: LOSARTAN POTASSIUM 50 MG TABLET PO SCH (08:54)
[2017-09-14] MEDS: DULOXETINE 30 MG CAP PO SCH (08:54)
[2017-09-14] MEDS: LISINOPRIL 20 MG TAB PO SCH (08:54)
[2017-09-14] MEDS: GABAPENTIN 300 MG CAP PO SCH (08:54)
[2017-09-14] MEDS: AMLODIPINE 5 MG TAB PO SCH (08:54)
[2017-09-14] MEDS: HOME MED 1 EA UNK (Vortioxetine Hydrobromide [Trintellix] 10 MG) PO SCH (08:55)
[2017-09-14] MEDS: FENOFIBRATE 160 MG TAB PO SCH (08:55)
[2017-09-14] MEDS: Levofloxacin 250mg IV 250 MG/50 ML BAG IV SCH (08:55)
[2017-09-14] MEDS: hydroCHLOROthiazide 12.5 MG CAP PO SCH (08:57)
[2017-09-14] MEDS ORDERED: HOME MED 1 EA UNK (Losartan Potassium [Losartan Potassium] 100 MG) PO SCH (09:00)
[2017-09-14] MEDS ORDERED: HOME MED 1 EA UNK (Hydrochlorothiazide [Hydrochlorothiazide] 1 TAB) PO SCH (09:00)
--- NOTE | 2017-09-14 14:46 | P.DS ---
Admission Date: 09/10/17 Discharge Date: 09/14/17 Primary Care Provider: Dr. Murcia; Pulmonary-Dr. Rousseau Disposition: ROUTINE DISCHARGE Discharge Condition: GOOD Reason for Admission: COPD exacerbation Consultations: Pulmonology - Problems (1) COPD exacerbation Onset Date: 04/17/16 Status: Acute (2) PNA (pneumonia) Onset Date: 09/13/17 Status: Acute Qualifiers: Pneumonia type: due to unspecified organism Laterality: unspecified laterality Lung location: unspecified part of lung Qualified Code(s): J18.9 - Pneumonia, unspecified organism (3) Depression Onset Date: 09/13/17 Status: Chronic Qualifiers: Depression Type: unspecified Qualified Code(s): F32.9 - Major depressive disorder, single episode, unspecified (4) GERD (gastroesophageal reflux disease) Onset Date: 09/13/17 Status: Chronic Qualifiers: Esophagitis presence: esophagitis presence not specified Qualified Code(s) : K21.9 - Gastro-esophageal reflux disease without esophagitis (5) Hyperlipidemia Onset Date: 09/13/17 Status: Chronic Qualifiers: Hyperlipidemia type: unspecified Qualified Code(s): E78.5 - Hyperlipidemia , unspecified (6) Diabetes mellitus Onset Date: 04/17/16 Status: Chronic Qualifiers: Diabetes mellitus type: type 2 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: with 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 home 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 Diabetes mellitus complication status: with kidney complications Diabetes mellitus complication detail: with chronic kidney disease Chronic kidney disease stage: stage 3 (moderate) Qualified Code(s): E11.22 - Type 2 diabetes mellitus with diabetic chronic kidney disease; N18.3 - Chronic kidney disease, stage 3 (moderate); 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 Most likely secondary to bilateral pneumonia. Pulmonology was consulted who recommended units, steroids, oxygen, antibiotics. Sputum culture was done which was negative for bacterial infection 2+ yeast. Patient was then switched over to long-acting beta agonist for maintenance therapy. Patient does have home oxygenation at home. Patient was also switched to low-dose prednisone. Patient was switched over to p.o. Levaquin at this time. Patient had marked improvement in her symptoms and thus was discharged home under stable condition. Patient while here in the hospital also had elevated blood pressure most likely secondary to steroids versus albuterol nebs. Patient was switched from albuterol to Xopenex while here in the hospital and was restarted back on his home medication as well. Patient had normalization of her blood pressure and then was discharged home under stable condition. Daughter did request patient to go to a jail facility however patient declined at this time. Worked with physical therapy who recommended that patient could be sent home with home health. Patient and family member both advised of this situation and agrees with the discharge home. Patient stated that in the future if she feels like she needs to go to rehab she will start getting it arranged from the house. At this time however she does not want go to jail facility or inpatient rehab. Vital Signs/Physical Exam: Temp Pulse Resp BP Pulse Ox 97.8 F 93 H 18 186/88 H 93 09/14/17 08:00 09/14/17 08:00 09/14/17 08:00 09/14/17 08:00 09/14/17 08:00 General: Alert, In no apparent distress HEENT: Atraumatic, PERRLA, EOMI Neck: Supple, JVD not distended Respiratory: Clear to auscultation bilaterally, Normal air movement Cardiovascular: Regular rate/rhythm, Normal S1 S2 Gastrointestinal: Normal bowel sounds, No tenderness Musculoskeletal: No tenderness Integumentary: No rashes Neurological: Normal speech, Normal tone, Normal affect Lymphatics: No axilla or inguinal lymphadenopathy Laboratory Data at Discharge: WBC 11.1 K/uL (4.3-10.9) H D 09/14/17 05:44 Hgb 14.9 g/dL (12.0-15.0) 09/14/17 05:44 Hct 44.9 % (36.0-45.0) 09/14/17 05:44 Plt Count 224 K/uL (152-406) D 09/14/17 05:44 PT 13.0 SECONDS (9.5-12.5) H 09/10/17 19:28 INR 1.10 09/10/17 19:28 Sodium 138 mmol/L (136-145) 09/14/17 05:44 Potassium 4.3 mmol/L (3.5-5.1) 09/14/17 05:44 BUN 20 mg/dL (7-18) H 09/14/17 05:44 Creatinine 0.90 mg/dL (0.55-1.3) 09/14/17 05:44 Glucose 179 mg/dL (74-106) H 09/14/17 05:44 Magnesium 2.0 mg/dL (1.8-2.4) 09/14/17 05:44 Total Bilirubin 0.3 mg/dL (0.2-1.0) 09/10/17 19:28 AST 13 U/L (15-37) L 09/10/17 19:28 ALT 22 U/L (12-78) 09/10/17 19:28 Alkaline Phosphatase 86 U/L (45-117) 09/10/17 19:28 Lipase 191 U/L (73-393) 09/10/17 19:28 Home Medications: Duloxetine HCl [Cymbalta] 60 mg PO DAILY 04/17/16 Gabapentin [Neurontin*] 300 mg PO TID 04/17/16 Oxycodone HCl 30 mg PO Q6HP PRN 04/17/16 Fenofibrate 1 tab PO DAILY 09/11/17 Lisinopril 1 tab PO DAILY 09/11/17 Promethazine HCl 1 tab PO DAILY 09/11/17 Tizanidine HCl 1 tab PO SEECOM 09/11/17 Trazodone [Desyrel*] 1 tab PO BEDTIME 09/11/17 Vortioxetine Hydrobromide [Trintellix] 10 mg PO DAILY 09/11/17 hydroCHLOROthiazide [Hydrochlorothiazide] 1 tab PO DAILY 09/11/17 Amlodipine [Norvasc*] 5 mg PO DAILY 09/13/17 Losartan Potassium 100 mg PO DAILY 09/13/17 Arformoterol Tartrate [Brovana] 15 mcg NEB BIDRESP #1 vial.neb 09/14/17 Benzonatate [Tessalon Perle*] 200 mg PO TID PRN #30 cap 09/14/17 Methylprednisolone [Medrol dosepack] 4 mg PO DIRECTED #1 kayleigh 09/14/17 levoFLOXacin [Levaquin] 500 mg PO DAILY #10 tab 09/14/17 New Medications: Arformoterol Tartrate [Brovana] 15 mcg NEB BIDRESP #1 vial.neb Benzonatate [Tessalon Perle*] 200 mg PO TID PRN #30 cap PRN Reason: Cough levoFLOXacin [Levaquin] 500 mg PO DAILY #10 tab Methylprednisolone [Medrol dosepack] 4 mg PO DIRECTED #1 kayleigh Patient Discharge Instructions: Please f.u with PCP, pulmonology and Nephrology in 1 to 2 week post discharge. New medication. Brovana 1 puff BID daily. Levaquin 500mg Daily. Tessalon pearles. Medrol Dose Pack Diet: Regular Activity: Ad matthew Followup: Rito Meza MD [ACTIVE - CAN ADMIT] - 1 Week Guzman Shelby MD [ACTIVE - CAN ADMIT] -
[2017-09-16 21:28] LABS: Albumin, (SPE) 3.4 g/dL (3.8-4.8); Alpha-1-Globulins 0.3 g/dL (0.2-0.3); Alpha-2-Globulins 1.2 g/dL (0.5-0.9); Gamma Globulins 1.3 g/dL (0.8-1.7); INTERPRETATION REPORT
[2017-09-18 05:11] LABS: Beta Globulin 24 HR Urine 9 %; Creatinine 24 Hour Urine 0.16 g/24 h (0.63-2.50); Gamma Globulin, 24hr Urine 4 %; Interpretation: REPORT; Urine Alpha-2-Globulins, 24 Hr 3 %; Urine PEP Abn Protein Band1 REPORT; Urine Protein/Creat Ratio 24Hr 1511 mg/g creat (<=84); Urine Total Volume 24 Hours 700 mL
== END 2017-09-14 14:19 | disposition home or self-care (01) | DRG 190 ==
LOC: ER 18:52 → ERHOLD 21:32 → 2ND 22:38
PROVIDERS: ADMIT Internal Medicine; ATTEND Family Medicine
DX: J44.0 Chronic obstructive pulmonary disease with (acute) lower respiratory infection (principal); J18.9 Pneumonia, unspecified organism; E87.2 Acidosis; J44.1 Chronic obstructive pulmonary disease with (acute) exacerbation; Z99.81 Dependence on supplemental oxygen; F32.9 Major depressive disorder, single episode, unspecified; K21.9 Gastro-esophageal reflux disease without esophagitis; E78.5 Hyperlipidemia, unspecified; E11.22 Type 2 diabetes mellitus with diabetic chronic kidney disease; I12.9 Hypertensive chronic kidney disease with stage 1 through stage 4 chronic kidney disease, or unspecified chronic kidney disease; N18.3 Chronic kidney disease, stage 3 (moderate); R09.02 Hypoxemia; E11.42 Type 2 diabetes mellitus with diabetic polyneuropathy; G89.4 Chronic pain syndrome; Z88.0 Allergy status to penicillin; Z79.84 Long term (current) use of oral hypoglycemic drugs; M19.90 Unspecified osteoarthritis, unspecified site; F17.210 Nicotine dependence, cigarettes, uncomplicated
CPT/HCPCS: 36415; 71046; 76770; 80048; 80076; 81003; 81015; 82962; 83605; 83690; 83735; 83880; 84145; 84165; 84166; 84439; 84443; 84481; 84484; 85025; 85379; 85610; 87040; 87070; 87086; 87088; 87205; 87804; 93005; 93306; 94640; 94760; 96365; 96375; 97163; 99285; J0456; J0696; J1650; J2920; J2930; J7030; J7512; J7605

== ENCOUNTER 2017-11-13 10:19 | Observation (INO) | payer OTHER ==
[2017-11-13] MEDS ORDERED: ALBUTEROL 2.5 MG/3 ML NEB SOL ONE (11:09)
[2017-11-13] MEDS ORDERED: METHYLPREDNISOLONE 125 MG INJ ONE (11:09)
[2017-11-13] MEDS ORDERED: IPRATROPIUM BROM 0.5MG/2.5ML ONE (11:10)
[2017-11-13 12:35] LABS: Absolute Lymphocytes (CBC) 1.8 K/uL (0.7-4.9); Absolute Monocytes 0.5 K/uL (0.1-1.3); Basophils % 0.2 % (0-1.3); Eosinophils % 0.1 % (0-4.4); Hematocrit 39.5 % (36.0-45.0); Lymphocytes % 11.1 % (15.3-44.8); MCH 29.7 pg (27.0-35.0); MCV 90.2 fL (80-100); MPV 8.6 fL (7.6-11.3); Monocytes % 2.8 % (3.3-12.3); RBC Red Blood Cell Count 4.39 M/uL (3.86-4.86)
[2017-11-13 12:37] LABS: BUN Blood Urea Nitrogen 16 mg/dL (7-18); Bicarbonate 30 mmol/L (21-32); Glucose Level 263 mg/dL (74-106); Potassium 4.3 mmol/L (3.5-5.1); Sodium Level 137 mmol/L (136-145)
[2017-11-13 12:38] LABS: CKMB Creatine Kinase MB 1.7 ng/mL (0.3-3.6); Creatine Phosphokinase 32 U/L (26-192); Magnesium 2.1 mg/dL (1.8-2.4); NT PRO-BNP 316 pg/mL (<450); Troponin I < 0.02 ng/mL (0.0-0.045)
[2017-11-13 12:41] LABS: Protime INR 0.93
[2017-11-13 13:04] LABS: Urine Blood NEGATIVE (NEG); Urine Glucose 3+ (NEG); Urine Protein NEGATIVE (NEG); Urine Specific Gravity 1.025 (1.005-1.030); Urine pH 5.5 (5.0-7.0)
[2017-11-13 13:28] LABS: Blood Morphology Comment NOT SEEN (NOT SEEN); Platelet Estimate ADEQ
--- NOTE | 2017-11-13 13:33 | EDPHYS ---
Physician Documentation [facility] Name: Bowen Jo Age: 77 yrs Sex: Female : 1940 Arrival Date: 11/13/2017 Time: 10:20 Bed 24 Private MD: Chadwick Murcia E ED Physician Quinton Diaz HPI: 11/13 11:30 This 77 yrs old Female presents to ER via Unassigned with complaints of Cough.jmm 11:30 The patient or guardian reports cough, difficulty breathing. Onset: The jmm symptoms/episode began/occurred gradually, 1 week(s) ago. Associated signs and symptoms: Pertinent negatives: chest pain, fever, sore throat, vomiting. This is a 77 year old female with a history of COPD that presents to the ED with cough, shortness of breath beginning approx 1 week ago. The patient states having similar episodes with previous COPD exacerbations. Patient denies chest pain. . Historical: - Allergies: 11:44 PENICILLINS; ss - PMHx: 11:44 Anxiety; Arthritis; constipation; chronic kidney disease; High Cholesterol; COPD; ss Diabetes - NIDDM; Back pain; neuropathy; insomnia; Hypertension; Pneumonia; Dementia; sciatica; UTI; - Immunization history:: Adult Immunizations up to date. - Social history:: Smoking status: Patient uses tobacco products, smokes one pack cigarettes per day. - Ebola Screening: : No symptoms or risks identified at this time. ROS: 11:30 Constitutional: Negative for fever, chills, and weight loss, Cardiovascular: Negative jmm for chest pain, palpitations, and edema. 11:30 Abdomen/GI: Negative for abdominal pain, nausea, vomiting, diarrhea, and constipation, Skin: Negative for injury, rash, and discoloration, Neuro: Negative for headache, weakness, numbness, tingling, and seizure. 11:30 Respiratory: Positive for cough, shortness of breath. 11:30 All other systems are negative. Exam: 11:30 Head/Face: atraumatic. Chest/axilla: Normal chest wall appearance and motion. jmm Cardiovascular: Regular rate and rhythm. No edema appreciated 11:30 Constitutional: The patient appears in no acute distress, alert, awake. 11:30 Respiratory: mild respiratory distress is noted, Respirations: normal, Breath sounds: wheezing: that is moderate, is heard diffusely. 11:30 Musculoskeletal/extremity: ROM: intact in all extremities. 11:30 Skin: Appearance: Color: normal in color. 11:30 Neuro: Orientation: is normal, Mentation: is normal, Memory: is normal. 11:30 Psych: Behavior/mood is pleasant, cooperative. Vital Signs: 11:44 BP 141 / 73; Pulse 120; Resp 18; Pulse Ox 96% on 2 lpm NC; Pain 0/10; ss 12:28 BP 141 / 70; Pulse 113; Resp 18; Pulse Ox 97% on 3 lpm NC; ss 14:59 BP 163 / 78; Pulse 115; Resp 20; Pulse Ox 95% ; Pain 2/10; jl3 MDM: 11:44 Patient medically screened. [facility] 12:26 Differential Diagnosis: Bronchitis Upper Respiratory Infection. Data reviewed: vital [facility] signs, nurses notes. 18:20 Counseling: I had a detailed discussion with the patient and/or guardian regarding: the [facility] historical points, exam findings, and any diagnostic results supporting the discharge/admit diagnosis, radiology results, the need for further work-up and treatment in the hospital. ED course: I discussed the patient with Dr. Lock whom accepted admission. 18:21 Data reviewed: EKG. [facility] 11/13 11:27 Order name: Urine Dipstick--Ancillary (enter results) 11/13 12:35 Order name: CBC with Automated Diff; Complete Time: 13:30 [facility] 11/13 12:38 Order name: Basic Metabolic Panel; Complete Time: 13:14 [facility] 11/13 12:38 Order name: Creatine Phosphokinase; Complete Time: 13:14 [facility] 11/13 12:38 Order name: CKMB Creatine Kinase MB; Complete Time: 13:14 [facility] 11/13 12:38 Order name: Troponin I; Complete Time: 13:14 [facility] 11/13 12:38 Order name: NT PRO-BNP; Complete Time: 13:14 [facility] 11/13 12:38 Order name: Magnesium; Complete Time: 13:14 [facility] 11/13 12:42 Order name: Protime (+INR); Complete Time: 13:14 [facility] 11/13 12:42 Order name: PTT, Activated Partial Thromb; Complete Time: 13:14 [facility] 11/13 12:53 Order name: Chest Single View; Complete Time: 14:54 [facility] 11/13 12:55 Order name: Urine Dipstick-Ancillary; Complete Time: 13:14 [facility] 11/13 13:28 Order name: Manual Differential; Complete Time: 13:30 [facility] Administered Medications: No medications were administered Disposition: 15:55 Co-signature as Attending Physician, Quinton Diaz MD I agree with the assessment and kdr plan of care. Disposition: 11/13/17 13:32 Hospitalization ordered by Annie Lock for Observation. Preliminary diagnosis is Chronic obstructive pulmonary disease with (acute) exacerbation. - Bed requested for Telemetry/MedSurg (observation). - Status is Observation. jl3 - Condition is Stable. - Problem is an acute exacerbation. - Symptoms are unchanged. UTI on Admission? No Signatures: Dispatcher [employer] [facility] Quinton Diaz MD MD [facility] Emerson Torres PA PA jmm Smirch, Shelby, RN RN ss Stephon Thibodeaux RN RN jl3 Renea Bernal Corrections: (The following items were deleted from the chart) 14:02 13:32 Hospitalization Ordered by Annie Lock MD for Observation. Preliminary eb diagnosis is Chronic obstructive pulmonary disease with (acute) exacerbation. Bed requested for Telemetry/MedSurg (observation). Status is Observation. Condition is Stable. Problem is an acute exacerbation. Symptoms are unchanged. UTI on Admission? No. m 15:30 14:02 11/13/2017 13:32 Hospitalization Ordered by Annie Lock MD for Observation. jl3 Preliminary diagnosis is Chronic obstructive pulmonary disease with (acute) exacerbation. Bed requested for Telemetry/MedSurg (observation). Status is Observation. Condition is Stable. Problem is an acute exacerbation. Symptoms are unchanged. UTI on Admission? No. eb 15:46 15:30 11/13/2017 13:32 Hospitalization Ordered by Annie Lock MD for Observation. jl3 Preliminary diagnosis is Chronic obstructive pulmonary disease with (acute) exacerbation. Bed requested for Telemetry/MedSurg (observation). Status is Observation. Condition is Stable. Problem is an acute exacerbation. Symptoms are unchanged. UTI on Admission? No. jl3
--- NOTE | 2017-11-13 13:33 | ER ---
Nurse's Notes [facility] Name: Bowen Jo Age: 77 yrs Sex: Female : 1940 Arrival Date: 11/13/2017 Time: 10:20 Bed 24 Private MD: Chadwick Murcia E Diagnosis: Chronic obstructive pulmonary disease with (acute) exacerbation Presentation: 11/13 10:20 Acuity: CYNTHIA 3 dm5 15:23 Presenting complaint: Patient states: SOB, COPD exacerbation, Hx COPD. Transition of jl3 care: patient was not received from another setting of care. Onset of symptoms was November 11, 2017. Risk Assessment: Do you want to hurt yourself or someone else? Patient reports no desire to harm self or others. Initial Sepsis Screen: Does the patient meet any 2 criteria? No. Patient's initial sepsis screen is negative. Does the patient have a suspected source of infection? No. Patient's initial sepsis screen is negative. Care prior to arrival: None. 15:23 Method Of Arrival: Ambulatory 3 Historical: - Allergies: 11:44 PENICILLINS; ss - PMHx: 11:44 Anxiety; Arthritis; constipation; chronic kidney disease; High Cholesterol; COPD; ss Diabetes - NIDDM; Back pain; neuropathy; insomnia; Hypertension; Pneumonia; Dementia; sciatica; UTI; - Immunization history:: Adult Immunizations up to date. - Social history:: Smoking status: Patient uses tobacco products, smokes one pack cigarettes per day. - Ebola Screening: : No symptoms or risks identified at this time. Screenin:44 Abuse screen: Denies threats or abuse. Denies injuries from another. Nutritional ss screening: No deficits noted. Tuberculosis screening: Never had TB. Fall Risk None identified. Assessment: 10:28 Reassessment: DOWNTIME CHARTING: SEE PAPER CHARTING FOR INITIAL/ FURTHER DOCUMENTATION. ss 11:20 General: Appears in no apparent distress. comfortable, Behavior is calm, cooperative, ss Denies fever, feeling ill, fatigue, chills. Pain: Denies pain. Neuro: Level of Consciousness is awake, alert, obeys commands, Oriented to person, place, time, situation, Speech is normal, Facial symmetry appears normal. Cardiovascular: Heart tones S1 S2 present Capillary refill < 3 seconds is brisk in bilateral fingers Patient's skin is warm and dry. Respiratory: Reports shortness of breath on exertion cough that is hacking, persistent Airway is patent Respiratory effort is even, unlabored, Respiratory pattern is regular, symmetrical, Breath sounds with wheezes bilaterally. GI: Patient currently denies abdominal pain, diarrhea, nausea, vomiting. : No signs and/or symptoms were reported regarding the genitourinary system. EENT: No signs and/or symptoms were reported regarding the EENT system. Nares are clear Oral mucosa is moist. Derm: Skin is fragile, is thin, Skin is dry, Skin is pink, Skin temperature is warm. Musculoskeletal: Circulation, motion, and sensation intact. Range of motion: intact in all extremities, Swelling absent. 12:28 Reassessment: Patient appears in no apparent distress at this time. Patient and/or ss family updated on plan of care and expected duration. Pain level reassessed. Patient is alert, oriented x 3, equal unlabored respirations, skin warm/dry/pink. Patient denies pain at this time. Vital Signs: 11:44 BP 141 / 73; Pulse 120; Resp 18; Pulse Ox 96% on 2 lpm NC; Pain 0/10; ss 12:28 BP 141 / 70; Pulse 113; Resp 18; Pulse Ox 97% on 3 lpm NC; ss 14:59 BP 163 / 78; Pulse 115; Resp 20; Pulse Ox 95% ; Pain 2/10; jl3 ED Course: 10:20 Patient arrived in ED. mr 10:20 Chadwick Murcia MD is Private Physician. mr 11:28 Missed attempt(s): 22 gauge in left antecubital area. Bleeding controlled, band aid ss applied, catheter tip intact. Oxygen administration via nasal cannula \T\ 2L/min. 11:39 Emerson Torres PA is PHCP. kdr 11:41 Nettie Villagomez, CHICA is Primary Nurse. ss 11:44 Quinton Diaz MD is Attending Physician. jmm 11:44 Patient has correct armband on for positive identification. Bed in low position. Call ss light in reach. Side rails up X2. Adult w/ patient. environmental monitoring technician on. Pulse ox on. NIBP on. 12:53 Urine Dipstick--Ancillary (enter results) Sent. dm5 12:54 Chest Single View In Process Unspecified. EDMS 13:31 Annie Lock MD is Hospitalizing Provider. jmm 13:45 Triage completed. dm5 15:23 No provider procedures requiring assistance completed. Patient admitted, IV remains in jl3 place. Oxygen administration via nasal cannula \T\ 3L/min. 15:28 Patient none. jl3 Administered Medications: No medications were administered Outcome: 13:32 Decision to Hospitalize by Provider. [facility] 15:26 Admitted to Med/surg [facility] 15:26 Condition: stable 15:26 Instructed on the need for admit. 15:46 Patient left the ED. 3 Signatures: Dispatcher [employer] EDMarissa Nguyen, RN RN dm5 Quinton Diaz MD MD kdr Mickail, Joel, PA PA Sabina Rodriguez mr Nettie Villagomez RN RN Stephon Iyer RN RN jl3 Corrections: (The following items were deleted from the chart) 11:41 11:41 Reassessment: DOWNTIME CHARTING: SEE PAPER CHARTING FOR INITIAL/ FURTHER ss DOCUMENTATION
--- NOTE | 2017-11-13 14:37 | P.HP ---
Certification for Inpatient Patient admitted to: Observation With expected LOS: <2 Midnights Patient will require the following post-hospital care: None Practitioner: I am a practitioner with admitting privileges, knowledge of patient current condition, hospital course, and medical plan of care. Services: Services provided to patient in accordance with Admission requirements found in Title 42 Section 412.3 of the Code of Federal Regulations Patient History Date of Service: 11/13/17 Reason for admission: SOB History of Present Illness: Patient with significant past medical history of COPD hypertension diabetes who presented to the ED complaining of having some shortness of breath. Patient stated shortness of breath started last night and got progressively worse and thus she decided to come to the ER. Patient was brought over to the ER by her daughter. Patient states that at baseline her COPD is pretty worse and she uses home oxygen at 3 L intake steroids daily as well. Patient does see a senior art director outside in uses inhalers and nebulizer at home. The patient denies having any fever chills nausea vomiting abdominal pain or any other associated symptoms. Patient denies having any chest pain as well. No other complaints to offer at this time. Allergies Penicillins Allergy (Verified 04/25/16 14:35) swelling Home Medications: Duloxetine HCl [Cymbalta] 60 mg PO DAILY 04/17/16 Gabapentin [Neurontin*] 300 mg PO TID 04/17/16 Oxycodone HCl 30 mg PO Q6HP PRN 04/17/16 Fenofibrate 1 tab PO DAILY 09/11/17 Lisinopril 1 tab PO DAILY 09/11/17 Promethazine HCl 1 tab PO DAILY 09/11/17 Tizanidine HCl 1 tab PO SEECOM 09/11/17 Trazodone [Desyrel*] 1 tab PO BEDTIME 09/11/17 Vortioxetine Hydrobromide [Trintellix] 10 mg PO DAILY 09/11/17 hydroCHLOROthiazide [Hydrochlorothiazide] 1 tab PO DAILY 09/11/17 Amlodipine [Norvasc*] 5 mg PO DAILY 09/13/17 Losartan Potassium 100 mg PO DAILY 09/13/17 Arformoterol Tartrate [Brovana] 15 mcg NEB BIDRESP #1 vial.neb 09/14/17 Benzonatate [Tessalon Perle*] 200 mg PO TID PRN #30 cap 09/14/17 Methylprednisolone [Medrol dosepack] 4 mg PO DIRECTED #1 kayleigh 09/14/17 levoFLOXacin [Levaquin] 500 mg PO DAILY #10 tab 09/14/17 - Past Medical/Surgical History Diabetic: Yes -: COPD -: Chronic Kidney dz -: NIDDM -: Sciatica -: arthritis -: neuropathy -: hypercholesterimia -: HTN -: hysterectomy -: Partial cornea replacement L eye - Family History Father -: Heart disease, Hypertension, Stroke Mother -: Heart disease, Hypertension Notes: Tish - Social History Alcohol use: No CD- Drugs: No Caffeine use: Yes Review of Systems 10-point ROS is otherwise unremarkable Physical Examination - Physical Exam General: Alert, In no apparent distress HEENT: Atraumatic, PERRLA, Mucous membr. moist/pink, EOMI, Sclerae nonicteric Neck: Supple, 2+ carotid pulse no bruit, No LAD, Without JVD or thyroid abnormality Respiratory: Normal air movement, Expiratory wheezes, Inspiratory wheezes Cardiovascular: Regular rate/rhythm, Normal S1 S2 Gastrointestinal: Normal bowel sounds, No tenderness Musculoskeletal: No tenderness Integumentary: No rashes Neurological: Normal gait, Normal speech, Normal strength at 5/5 x4 extr, Normal tone, Normal affect Lymphatics: No axilla or inguinal lymphadenopathy - Studies Laboratory Data (last 24 hrs) 11/13/17 11:28: PT 11.0, INR 0.93, APTT 16.6 L 11/13/17 11:28: Sodium 137, Potassium 4.3, BUN 16, Creatinine 0.90, Glucose 263 H, Magnesium 2.1, Troponin I < 0.02 11/13/17 11:28: WBC 16.3 H, Hgb 13.0, Hct 39.5, Plt Count 221 Assessment and Plan - Problems (Diagnosis) (1) COPD exacerbation Onset Date: 04/17/16 Current Visit: No Status: Acute Plan: COPD exacerbation most likely 2.2 to Viral Infection -Duonebs, Oxygen and steriods -On home o2 and steroids -Anticipate Discharge in 24 to 48 hrs (2) CKD (chronic kidney disease) stage 2, GFR 60-89 ml/min Onset Date: 04/27/16 Current Visit: No Status: Chronic (3) Diabetes mellitus Onset Date: 04/17/16 Current Visit: No Status: Chronic Plan: ISS Qualifiers: (4) GERD (gastroesophageal reflux disease) Onset Date: 09/13/17 Current Visit: No Status: Chronic Plan: Restart Home medication Qualifiers: (5) HTN (hypertension) Onset Date: 04/17/16 Current Visit: No Status: Chronic Plan: Restart hOme medication Qualifiers: (6) Hyperlipidemia Onset Date: 09/13/17 Current Visit: No Status: Chronic Plan: Restart home medication Qualifiers: Discharge Plan: Home Plan to discharge in: 24 Hours - Advance Directives Does patient have a Living Will: No Does patient have a Durable POA for Healthcare: No - Code Status/Comfort Care Code Status Assessed: Yes Critical Care: No
--- NOTE | 2017-11-13 14:41 | RAD REPORT ---
EXAM DESCRIPTION: RAD - Chest Single View - 11/13/2017 11:23 am CLINICAL HISTORY: COUGH<Reason For Exam>COUGH Shortness of breath COMPARISON: Chest Pa And Lat (2 Views) dated 09/12/2017; TECHNIQUE: AP portable chest image was obtained 1120 hours . FINDINGS: Fibrotic lung pattern is similar to comparison. No superimposed failure, infiltrate or mas s. Heart and vasculature are normal. No measurable pleural effusion and no pneumothorax. No gross bon y abnormality seen. No acute aortic findings suspected. IMPRESSION: Chronic interstitial lung disease with no acute cardiopulmonary process. No significant interval change.
[2017-11-13] MEDS ORDERED: ONDANSETRON 4 MG/2 ML VIAL IV PRN (15:19)
[2017-11-13] MEDS: IPRATROPIUM BROM 0.5MG/2.5ML NEB SCH ×2 (15:19→20:16)
[2017-11-13] MEDS ORDERED: ACETAMINOPHEN 500 MG TAB PO PRN (15:19)
[2017-11-13] MEDS: LEVALBUTEROL 0.63 MG/3 ML NEB NEB SCH ×2 (15:19→20:15)
[2017-11-13] MEDS ORDERED: GLUCAGON 1 MG/VIAL IM PRN ×2 (15:38→18:34)
[2017-11-13] MEDS ORDERED: D50W 25 GM/50 ML SYRINGE IV PRN ×2 (15:38→18:34)
[2017-11-13] MEDS: INSULIN -REGULAR HUMAN 50 UNIT/0.5 ML ML SQ SCH ×2 (16:34→21:00)
[2017-11-13] MEDS ORDERED: INSULIN GLARGINE 100 UNITS/ML SQ ONE (18:35)
[2017-11-13] MEDS: ARFORMOTEROL TARTRATE 15 MCG/2 ML VIAL.NEB NEB SCH (20:15)
[2017-11-13] MEDS: predniSONE 20 MG TAB PO SCH (21:08)
[2017-11-14] MEDS: IPRATROPIUM BROM 0.5MG/2.5ML NEB SCH ×2 (01:12→08:26)
[2017-11-14] MEDS: LEVALBUTEROL 0.63 MG/3 ML NEB NEB SCH ×2 (01:13→08:26)
[2017-11-14 05:25] LABS: Absolute Lymphocytes (CBC) 0.8 K/uL (0.7-4.9); Absolute Monocytes 0.5 K/uL (0.1-1.3); Absolute Neutrophil 11.7 K/uL (1.8-8.0); Basophils % 0.1 % (0-1.3); Hematocrit 36.9 % (36.0-45.0); Lymphocytes % 6.3 % (15.3-44.8); MCH 30.8 pg (27.0-35.0); MCV 89.8 fL (80-100); MPV 8.2 fL (7.6-11.3); Monocytes % 3.6 % (3.3-12.3)
[2017-11-14 05:41] LABS: Albumin 3.2 g/dL (3.4-5.0); Bilirubin Total 0.2 mg/dL (0.2-1.0); Magnesium 1.9 mg/dL (1.8-2.4); Phosphorus 2.3 mg/dL (2.5-4.9); Potassium 3.9 mmol/L (3.5-5.1)
[2017-11-14] MEDS: INSULIN -REGULAR HUMAN 50 UNIT/0.5 ML ML SQ SCH ×2 (07:30→11:30)
[2017-11-14] MEDS ORDERED: POTASSIUM PHOS IN 0.9 % NACL 15 MMOL/250 ML BAG IV ONE (08:00)
[2017-11-14] MEDS: predniSONE 20 MG TAB PO SCH (08:18)
[2017-11-14] MEDS: ARFORMOTEROL TARTRATE 15 MCG/2 ML VIAL.NEB NEB SCH (08:26)
--- NOTE | 2017-11-14 09:50 | RAD REPORT ---
EXAM DESCRIPTION: Gahnshyam Rubio (2 Views)11/14/2017 6:34 am CLINICAL HISTORY: Shortness of breath COMPARISON: Chest Single View dated 11/13/2017; FINDINGS: The lungs appear clear of acute infiltrate. The heart is normal size IMPRESSION: No acute abnormalities displayed
[2017-11-14] MEDS ORDERED: LOSARTAN POTASSIUM 50 MG TABLET PO SCH (10:44)
[2017-11-14] MEDS ORDERED: AMLODIPINE 5 MG TAB PO SCH (10:45)
[2017-11-14 11:14] LABS: Albumin 3.2 g/dL (3.4-5.0); Bilirubin Total 0.2 mg/dL (0.2-1.0); Potassium 4.2 mmol/L (3.5-5.1); Protein, Total 6.9 g/dL (6.4-8.2)
[2017-11-14] MEDS ORDERED: TRAZODONE 150 MG TAB PO PRN (12:09)
[2017-11-14] MEDS ORDERED: LABETALOL HCL 100 MG/20 ML IV ONE (12:26)
--- NOTE | 2017-11-14 12:37 | P.SSS ---
Patient History Date of Service: 11/14/17 Reason for admission: SOB History of Present Illness: Patient with significant past medical history of COPD hypertension diabetes who presented to the ED complaining of having some shortness of breath. Patient stated shortness of breath started last night and got progressively worse and thus she decided to come to the ER. Patient was brought over to the ER by her daughter. Patient states that at baseline her COPD is pretty worse and she uses home oxygen at 3 L intake steroids daily as well. Patient does see a press feeder broomcorn outside in uses inhalers and nebulizer at home. The patient denies having any fever chills nausea vomiting abdominal pain or any other associated symptoms. Patient denies having any chest pain as well. No other complaints to offer at this time. Allergies Penicillins Allergy (Verified 04/25/16 14:35) swelling Home Medications: Amlodipine [Norvasc*] 5 mg PO DAILY 11/13/17 Budesonide/Formoterol Fumarate [Symbicort 160-4.5 Mcg Inhaler] 2 puff IH BID 04/01 Duloxetine HCl [Cymbalta] 60 mg PO DAILY 11/13/17 Fenofibrate 160 mg PO DAILY 11/13/17 Gabapentin [Neurontin*] 300 mg PO TID 11/13/17 Losartan Potassium 100 mg PO DAILY 11/13/17 Tizanidine HCl 2 mg PO DAILY 11/13/17 Trazodone [Desyrel*] 150 mg PO BEDTIME PRN 11/13/17 - Past Medical/Surgical History Diabetic: Yes -: COPD -: Chronic Kidney dz -: NIDDM -: Sciatica -: arthritis -: neuropathy -: hypercholesterimia -: HTN -: hysterectomy -: Partial cornea replacement L eye - Family History Father -: Heart disease, Hypertension, Stroke Mother -: Heart disease, Hypertension Notes: Tish - Social History Smoking Status: Current every day smoker Alcohol use: No CD- Drugs: No Caffeine use: Yes Place of Residence: Home Review of Systems 10-point ROS is otherwise unremarkable Physical Examination - Vital Signs Temperature: 97.6 F Blood Pressure: 197/95 Pulse: 112 Respirations: 24 Pulse Ox (%): 93 - Physical Exam General: Alert, In no apparent distress HEENT: Atraumatic, PERRLA, Mucous membr. moist/pink, EOMI, Sclerae nonicteric Neck: Supple, 2+ carotid pulse no bruit, No LAD, Without JVD or thyroid abnormality Respiratory: Clear to auscultation bilaterally, Normal air movement Cardiovascular: Regular rate/rhythm, Normal S1 S2 Gastrointestinal: Normal bowel sounds, No tenderness Musculoskeletal: No tenderness Integumentary: No rashes Neurological: Normal gait, Normal speech, Normal strength at 5/5 x4 extr, Normal tone, Normal affect Lymphatics: No axilla or inguinal lymphadenopathy - Studies Laboratory Data (last 24 hrs) 11/13/17 11:28: PT 11.0, INR 0.93, APTT 16.6 L 11/13/17 11:28: Sodium 137, Potassium 4.3, BUN 16, Creatinine 0.90, Glucose 263 H, Magnesium 2.1, Troponin I < 0.02 11/13/17 11:28: WBC 16.3 H, Hgb 13.0, Hct 39.5, Plt Count 221 - Diagnosis (Problem(s)) (1) COPD exacerbation Onset Date: 04/17/16 Current Visit: No Status: Resolved (2) CKD (chronic kidney disease) stage 2, GFR 60-89 ml/min Onset Date: 04/27/16 Current Visit: No Status: Chronic (3) Diabetes mellitus Onset Date: 04/17/16 Current Visit: No Status: Chronic Qualifiers: (4) GERD (gastroesophageal reflux disease) Onset Date: 09/13/17 Current Visit: No Status: Chronic Qualifiers: (5) HTN (hypertension) Onset Date: 04/17/16 Current Visit: No Status: Chronic Qualifiers: (6) Hyperlipidemia Onset Date: 09/13/17 Current Visit: No Status: Chronic Qualifiers: Treatment Summary: Overall during the hospital stay patient remained stable Patient was initially admitted to the hospital for COPD exacerbation. Patient was kept on DuoNeb steroids and oxygen here in the hospital. Patient was weaned off of oxygen successfully. Steroids were tapered down. Patient had marked improvement in his symptoms and thus was discharged home under stable condition. Of note patient did have high blood pressure while here in the hospital along with tachycardia. Patient has chronic a tachycardia and her blood pressure has been high at home as well. Patient was asked to stop drinking her doctor pepper that she keeps on drinking at least 2-3 bottles a day. Patient demosntrated understanding and thus was discharged home under stable condition. Stated that she will not be drinking hard Dr. mccormick and will eat diet low in salt and diabetic diet as well. - Disposition Disposition: ROUTINE DISCHARGE Condition: GOOD Patient Discharge Instructions: Please f.u with PCP and Dr Hart in 1 to 2 week post discharge. No new medication Diet: Regular Activity: Ad matthew
[2017-11-14] MEDS ORDERED: GABAPENTIN 300 MG CAP PO SCH (14:00)
[2017-11-15] MEDS ORDERED: TIZANIDINE 4 MG TABLET PO SCH (09:00)
[2017-11-15] MEDS ORDERED: FENOFIBRATE 160 MG TAB PO SCH (09:00)
[2017-11-15] MEDS ORDERED: DULOXETINE 30 MG CAP PO SCH (09:00)
== END 2017-11-14 15:28 | disposition home or self-care (01) ==
LOC: ER 10:19 → ERHOLD 13:34 → 2ND 15:39
PROVIDERS: ADMIT Family Medicine; ATTEND Family Medicine
DX: J44.1 Chronic obstructive pulmonary disease with (acute) exacerbation (principal); I12.9 Hypertensive chronic kidney disease with stage 1 through stage 4 chronic kidney disease, or unspecified chronic kidney disease; E11.22 Type 2 diabetes mellitus with diabetic chronic kidney disease; N18.2 Chronic kidney disease, stage 2 (mild); K21.9 Gastro-esophageal reflux disease without esophagitis; E78.5 Hyperlipidemia, unspecified; Z88.0 Allergy status to penicillin; F17.210 Nicotine dependence, cigarettes, uncomplicated
CPT/HCPCS: 36415; 71045; 71046; 80048; 80053 ×2; 81003; 82550; 82553; 82947; 82962 ×4; 83605 ×2; 83735 ×2; 83880; 84100; 84484; 85025 ×2; 85610; 85730; 87040 ×3; 87070; 87205; 94640; 94760; 99285; G0378 ×2; J2930; J7605 ×2; J7512

== ENCOUNTER 2018-09-08 03:34 | Inpatient (IN) | payer OTHER ==
--- OUTSIDE RECORDS SUMMARY | 2018-09-08 03:36 | XMS REPORT ---
:1940 Author Organization [facility] Address [address] [place] [address] Dr. Khalil[address] [place] [id number] Care Team Providers Name Role Phone Unavailable Unavailable Unavailable Problems This patient has no known problems. Allergies, Adverse Reactions, Alerts This patient has no known allergies or adverse reactions. Medications This patient has no known medications.
[2018-09-08] MEDS ORDERED: METHYLPREDNISOLONE 125 MG INJ ONE (04:25)
[2018-09-08] MEDS ORDERED: LEVALBUTEROL 1.25 MG/3 ML NEB ONE (04:25)
[2018-09-08] MEDS ORDERED: ACETAMINOPHEN 325 MG TABLET ONE (04:25)
[2018-09-08] MEDS ORDERED: NA CHLORIDE 0.9% 1,000 ML ONE ×3 (04:26→06:50)
[2018-09-08 04:33] LABS: Absolute Lymphocytes (CBC) 1.3 K/uL (0.7-4.9); Basophils % 0.3 % (0-1.3); Eosinophils % 0.4 % (0-4.4); Hematocrit 35.3 % (36.0-45.0); Lymphocytes % 11.7 % (15.3-44.8); MPV 8.6 fL (7.6-11.3); Monocytes % 5.5 % (3.3-12.3); RBC Red Blood Cell Count 3.74 M/uL (3.86-4.86)
--- NOTE | 2018-09-08 04:50 | ER ---
Nurse's Notes [facility] Name: Bowen Jo Age: 78 yrs Sex: Female : 1940 Arrival Date: 09/08/2018 Time: 03:35 Bed 16 Private MD: Chadwick Murcia E Diagnosis: Failed outpatient therapy for pneumonia;Pneumonia;Chronic obstructive pulmonary disease with acute lower respiratory infection;Chronic obstructive pulmonary disease with (acute) exacerbation;Dyspnea, unspecified;Hypoxemia;Urinary tract infection, site not specified;Hyperglycemia, unspecified Presentation: 09/08 04:08 Presenting complaint: Patient states: Cough and SOB for few days. PCP told her if ao problem continues to come to the ED. Transition of care: patient was not received from another setting of care. Onset of symptoms is unknown. Risk Assessment: Do you want to hurt yourself or someone else? Patient reports no desire to harm self or others. Initial Sepsis Screen: Does the patient meet any 2 criteria? Temp <36.0*C (96.8*F)) or > 38.3*C (100.9*F). HR > 90 bpm. Yes Does the patient have a suspected source of infection? No. Patient's initial sepsis screen is negative. Care prior to arrival: None. 04:08 Method Of Arrival: Ambulatory ao 04:08 Acuity: CYNTHIA 2 ao Historical: - Allergies: 04:23 PENICILLINS; ao - Home Meds: 04:23 gabapentin 300 mg Oral cap 3 times per day [Active]; tizanidine 2 mg Oral tab 2 tabs ao every 8 hours [Active]; fenofibrate 160 mg Oral tab once daily [Active]; trazodone 100 mg Oral tab 1 tab 3 times per day [Active]; Metoprolol Tartrate Oral [Active]; 05:52 Tylenol #3 Oral [Active]; losartan 100 mg oral tab 1 tab once daily for Hypertension ao [Active]; amlodipine 5 mg tab 1 tab once daily for Hypertension [Active]; fenofibrate 160 mg oral tab 1 tab once daily [Active]; duloxetine 60 mg oral cpDR 1 cap once daily [Active]; metformin 500 mg Oral TG24 1 tabs 2 times per day [Active]; - PMHx: 04:23 Anxiety; Back pain; Arthritis; chronic kidney disease; constipation; COPD; Dementia; ao Diabetes - NIDDM; High Cholesterol; Hypertension; insomnia; neuropathy; Pneumonia; sciatica; UTI; - PSHx: 04:23 Unable to obtain; ao - Immunization history:: Adult Immunizations unknown. - Social history:: Smoking status: Patient uses tobacco products, smokes one pack cigarettes per day. Patient/guardian denies using alcohol, street drugs. - Family history:: not pertinent. - Ebola Screening: : Patient negative for fever greater than or equal to 101.5 degrees Fahrenheit, and additional compatible Ebola Virus Disease symptoms Patient denies exposure to infectious person Patient denies travel to an Ebola-affected area in the 21 days before illness onset. - Hospitalizations: : No recent hospitalization is reported. Screenin:44 Abuse screen: Denies threats or abuse. Denies injuries from another. Nutritional ao screening: No deficits noted. Tuberculosis screening: No symptoms or risk factors identified. Fall Risk None identified. Assessment: 03:55 General: Appears distressed, uncomfortable, Behavior is calm, cooperative, appropriate jb4 for age. Pain: Denies pain. Neuro: Level of Consciousness is awake, alert, obeys commands, Oriented to person, place, time, situation. Cardiovascular: Patient's skin is warm and dry. Rhythm is sinus tachycardia. Respiratory: Airway is patent Respiratory effort is even, labored, Respiratory pattern is symmetrical, tachypnea Breath sounds are clear in right upper lobe, left upper lobe, left lower lobe, left posterior upper lobe, right posterior upper lobe and left posterior lower lobe Breath sounds with wheezes in right middle lobe, right lower lobe, right posterior middle lobe and right posterior lower lobe. GI: No signs and/or symptoms were reported involving the gastrointestinal system. : No signs and/or symptoms were reported regarding the genitourinary system. EENT: No signs and/or symptoms were reported regarding the EENT system. Derm: Skin is intact, Skin is pink, warm \T\ dry. Musculoskeletal: Circulation, motion, and sensation intact. 05:00 Reassessment: No changes from previously documented assessment. Patient and/or family jb4 updated on plan of care and expected duration. Pain level reassessed. Blood pressure is increasing with IV fluid administration. respirations are labored, pt is A\T\o x 3 wheezes diminished in the right lower lobes. 06:25 Reassessment: No changes from previously documented assessment. Patient and/or family jb4 updated on plan of care and expected duration. Pain level reassessed. Admitting physician at the bedside. 06:36 Reassessment: Pt blood pressure dropped to 89/73, provider notified, see MAR for orders.jb4 07:10 Reassessment: BP 109/58, HR 105, SpO2 95% in 3LNC, fluids continue. hb 07:17 Reassessment: Attempted to call report to floor, receiving nurse unavailable at this hb time. Reassessment:. 07:35 Reassessment: Pt ambulated to bathroom with assistance. Assisted back to bed, on hb monitor, bed locked in low position, call light within reach. Family remains at bedside. Awaiting call back from receiving nurse at this time. 07:37 Reassessment: Dr. Tang at bedside. hb Vital Signs: 03:50 Weight 60.33 kg (R); Height 5 ft. 4 in. (162.56 cm) (R); jb4 03:50 BP 134 / 71; Pulse 120; Resp 22; Temp 101.7(O); Pulse Ox 98% on R/A; Weight 74.84 kg ao (R); Height 5 ft. 4 in. (162.56 cm) (R); Pain 7/10; 04:30 BP 97 / 72; Pulse 104; Resp 21; Pulse Ox 100% on Nebulizer Mask; jb4 05:30 BP 105 / 50; Pulse 106; Resp 24; Temp 98.6(O); Pulse Ox 97% on 2 lpm NC; jb4 06:36 BP 89 / 73; Pulse 105; Resp 30; Pulse Ox 97% on 2 lpm NC; jb4 06:45 BP 112 / 57; Pulse 105; Resp 21; Pulse Ox 98% on 3 lpm NC; jb4 03:50 Body Mass Index 28.32 (74.84 kg, 162.56 cm) ao ED Course: 03:35 Patient arrived in ED. am2 03:36 Chadwick Murcia MD is Private Physician. am2 03:39 Josiah Hanna, CHICA is Primary Nurse. jb4 03:55 Inserted saline lock: 20 gauge in left antecubital area, using aseptic technique. Blood jb4 collected. 03:55 Initial lab(s) drawn, by me, sent to lab. First set of blood cultures drawn by me. jb4 03:59 Dylan Graham MD is Attending Physician. rn 04:09 Triage completed. ao 04:10 Second set of blood cultures drawn by me. jb4 04:25 Arm band placed on right wrist. Patient placed in an exam room, on a stretcher, on ao oxygen, on electronic device monitor, on pulse oximetry. 04:25 Patient has correct armband on for positive identification. Fall risk band placed. ao Placed in gown. Bed in low position. Call light in reach. Side rails up X 1. electronic device monitor on. Pulse ox on. NIBP on. 04:30 X-ray completed. Portable x-ray completed in exam room. Patient tolerated procedure kw well. 04:31 XRAY CXR (1 view) In Process Unspecified. EDMS 04:48 Christopher Ro MD is Hospitalizing Provider. rn 04:55 Notified ED physician of a critical lab result(s). lactate of 3.3. Dr Graham notified. bb 05:10 Notified ED physician of a critical lab result(s). glucose 527. Dr Graham notified. bb 06:34 Notified ED physician of a critical lab result(s). lactate of 3.1. Dr Graham notified. bb 07:52 No provider procedures requiring assistance completed. Patient admitted, IV remains in hb place. Administered Medications: 04:15 Drug: SOLU-Medrol 125 mg Route: IVP; Site: left antecubital; jb4 04:15 Drug: NS 0.9% 1000 ml Route: IV; Rate: 1000 ml; Site: left antecubital; jb4 05:55 Follow up: Response: No adverse reaction; IV Status: Completed infusion; IV Intake: jb4 1000ml 04:20 Drug: Xopenex (3) 1.25 mg Route: Inhalation; jb4 05:28 Follow up: Response: No adverse reaction; Wheezing diminished jb4 04:20 Drug: Tylenol 650 mg Route: PO; jb4 05:30 Follow up: Response: No adverse reaction; Temperature is decreased jb4 05:00 Drug: LevaQUIN 750 mg Volume: 150 ml; Route: IVPB; Infused Over: 90 mins; Site: left jb4 antecubital; 06:30 Follow up: Response: No adverse reaction; IV Status: Completed infusion; IV Intake: jb4 150ml 05:10 Drug: NS 0.9% 500 ml Route: IV; Rate: bolus; Site: left antecubital; jb4 05:49 Follow up: Response: No adverse reaction; IV Status: Completed infusion; IV Intake: jb4 500ml 05:10 Drug: NS 0.9% 1000 ml Route: IV; Rate: 100 ml/hr; Site: left antecubital; jb4 05:23 Drug: Insulin Regular Human 10 units {Co-Signature: ao (Kwaku Gamboa RN).} Route: Sub-Q; jb4 Site: right lower abdomen; 06:08 Follow up: Response: No adverse reaction; Blood sugar is lowered jb4 06:36 Drug: NS 0.9% 500 ml Route: IV; Rate: bolus; Site: right antecubital; jb4 07:11 Follow up: Response: No adverse reaction; IV Status: Completed infusion; IV Intake: jb4 500ml Intake: 05:49 IV: 500ml; Total: 500ml. jb4 05:55 IV: 1000ml; Total: 1500ml. jb4 06:30 IV: 150ml; Total: 1650ml. jb4 07:11 IV: 500ml; Total: 2150ml. jb4 Outcome: 04:49 Decision to Hospitalize by Provider. rn 07:52 Admitted to Tele accompanied by tech, family with patient, via wheelchair, room 212, with oxygen, with chart, Report called to TJ RN 07:52 Condition: stable 07:52 Instructed on the need for admit, Demonstrated understanding of instructions. 07:53 Patient left the ED. hb Signatures: Dispatcher [employer] EDHermila Chi RN RN bb Nieto, Roman, MD MD rn Whitley, Kimberlee kw Ortiz, Alex, RN RN ao Baxter, Heather, RN RN hb Bryson, James, RN RN jb4 Moreno, Amanda am2 Kwaku browne Corrections: (The following items were deleted from the chart) 05:43 03:50 BP 134 / 71; Pulse 120bpm; Resp 22bpm; Temp 101.7F Oral; ao ao
--- NOTE | 2018-09-08 04:50 | EDPHYS ---
Physician Documentation [facility] Name: Bowen Jo Age: 78 yrs Sex: Female : 1940 Arrival Date: 09/08/2018 Time: 03:35 Bed 16 Private MD: Chadwick Murcia E ED Physician Dylan Graham HPI: 09/08 04:14 This 78 yrs old Female presents to ER via Ambulatory with complaints of rn Cough, General Weakness. 04:14 The patient or guardian reports cough, described as moderate, with productive sputum, rn difficulty breathing. Onset: The symptoms/episode began/occurred 1 week(s) ago. Severity of symptoms: At their worst the symptoms were moderate, in the emergency department the symptoms are unchanged. Modifying factors: The symptoms are alleviated by nothing, the symptoms are aggravated by nothing. The patient has experienced similar episodes in the past. The patient has been recently seen by a physician:. Seen recently by PCP, given zithromax pack, states getting worse. Being treated for possible pneumonia. + dyspnea and productive cough. Denies chest pain/abd pain/vomiting/diarrhea. . Historical: - Allergies: 04:23 PENICILLINS; ao - Home Meds: 04:23 gabapentin 300 mg Oral cap 3 times per day [Active]; tizanidine 2 mg Oral tab 2 tabs ao every 8 hours [Active]; fenofibrate 160 mg Oral tab once daily [Active]; trazodone 100 mg Oral tab 1 tab 3 times per day [Active]; Metoprolol Tartrate Oral [Active]; 05:52 Tylenol #3 Oral [Active]; losartan 100 mg oral tab 1 tab once daily for Hypertension ao [Active]; amlodipine 5 mg tab 1 tab once daily for Hypertension [Active]; fenofibrate 160 mg oral tab 1 tab once daily [Active]; duloxetine 60 mg oral cpDR 1 cap once daily [Active]; metformin 500 mg Oral TG24 1 tabs 2 times per day [Active]; - PMHx: 04:23 Anxiety; Back pain; Arthritis; chronic kidney disease; constipation; COPD; Dementia; ao Diabetes - NIDDM; High Cholesterol; Hypertension; insomnia; neuropathy; Pneumonia; sciatica; UTI; - PSHx: 04:23 Unable to obtain; ao - Immunization history:: Adult Immunizations unknown. - Social history:: Smoking status: Patient uses tobacco products, smokes one pack cigarettes per day. Patient/guardian denies using alcohol, street drugs. - Family history:: not pertinent. - Ebola Screening: : Patient negative for fever greater than or equal to 101.5 degrees Fahrenheit, and additional compatible Ebola Virus Disease symptoms Patient denies exposure to infectious person Patient denies travel to an Ebola-affected area in the 21 days before illness onset. - Hospitalizations: : No recent hospitalization is reported. 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 Exam: 04:14 Constitutional: This is a well developed, well nourished patient who is awake, alert, rn laying down and tachypneic Head/Face: Normocephalic, atraumatic. ENT: dry MM Cardiovascular: tachycardic, regular, no murmur Respiratory: + diffuse wheezing and diminished breath sounds left lung base, + tachypnea, no retractions Abdomen/GI: soft, non-tender MS/ Extremity: Pulses equal, no cyanosis. Neurovascular intact. Full, normal range of motion. Equal circumference. Neuro: Awake and alert, GCS 15, oriented to person, place, time, and situation. Cranial nerves II-XII grossly intact. Motor strength 4/5 in all extremities. Sensory grossly intact. Cerebellar exam normal. Vital Signs: 03:50 Weight 60.33 kg (R); Height 5 ft. 4 in. (162.56 cm) (R); jb4 03:50 BP 134 / 71; Pulse 120; Resp 22; Temp 101.7(O); Pulse Ox 98% on R/A; Weight 74.84 kg ao (R); Height 5 ft. 4 in. (162.56 cm) (R); Pain 7/10; 04:30 BP 97 / 72; Pulse 104; Resp 21; Pulse Ox 100% on Nebulizer Mask; jb4 05:30 BP 105 / 50; Pulse 106; Resp 24; Temp 98.6(O); Pulse Ox 97% on 2 lpm NC; jb4 06:36 BP 89 / 73; Pulse 105; Resp 30; Pulse Ox 97% on 2 lpm NC; jb4 06:45 BP 112 / 57; Pulse 105; Resp 21; Pulse Ox 98% on 3 lpm NC; jb4 03:50 Body Mass Index 28.32 (74.84 kg, 162.56 cm) ao MDM: 03:59 Patient medically screened. rn 04:46 Differential Diagnosis: Bronchitis Upper Respiratory Infection Viral Syndrome Pneumonia rn Other UTI. Data reviewed: vital signs, nurses notes, lab test result(s), radiologic studies, plain films, and as a result, I will admit patient. Counseling: I had a detailed discussion with the patient and/or guardian regarding: the historical points, exam findings, and any diagnostic results supporting the discharge/admit diagnosis, lab results, radiology results, the need for further work-up and treatment in the hospital. Response to treatment: the patient's symptoms have mildly improved after treatment, and as a result, I will admit patient. Admission orders: after a detailed discussion of the patient's condition and case, the admit orders are written by me. ED course: Pt with failure outpt therapy for pneumonia, COPD exacerbation, tachypneic with borderline BP and tachycardic, levaquin given due to PCN allergy, O2 84% on RA, febrile. Will admit to Dr. Ro for IV abx, COPD exacerbation, and failed outpt therapy for pneumonia.. 09/08 04:06 Order name: Blood Culture Adult (2) rn 09/08 04:06 Order name: BMP rn 09/08 04:06 Order name: CBC with Diff rn 09/08 04:06 Order name: NT PRO-BNP; Complete Time: 05:07 rn 09/08 04:06 Order name: Procalcitonin; Complete Time: 05:49 rn 09/08 04:06 Order name: Lactate; Complete Time: 04:56 rn 09/08 04:06 Order name: Urine Culture rn 09/08 04:06 Order name: Urine Microscopic Only; Complete Time: 05:49 rn 09/08 04:07 Order name: Blood Culture EDMS 09/08 04:07 Order name: Basic Metabolic Panel; Complete Time: 05:07 EDNM 09/08 04:08 Order name: CBC with Automated Diff; Complete Time: 04:40 EDNM 09/08 04:59 Order name: Urine Dipstick--Ancillary (enter results); Complete Time: 05:49 ar5 09/08 05:34 Order name: Troponin I [facility] 09/08 05:34 Order name: Troponin I [facility] 09/08 04:06 Order name: XRAY CXR (1 view) 09/08 05:34 Order name: Troponin I [facility] 09/08 05:37 Order name: Hemoglobin A1c [facility] 09/08 05:37 Order name: Lactate; Complete Time: 06:34 EDNM 09/08 05:38 Order name: Liver (Hepatic) Function [facility] 09/08 06:07 Order name: Glucose [facility] 09/08 06:41 Order name: Glucose Level [facility] 09/08 07:06 Order name: Glucose, Ancillary Testing [facility] 09/08 07:06 Order name: Glucose, Ancillary Testing [facility] 09/08 04:06 Order name: EKG; Complete Time: 04:08 rn 09/08 04:06 Order name: Cardiac monitoring; Complete Time: 04:30 rn 09/08 04:06 Order name: EKG - Nurse/Tech; Complete Time: 04:54 rn 09/08 04:06 Order name: IV Saline Lock; Complete Time: 04:30 rn 09/08 04:06 Order name: Labs collected and sent; Complete Time: 04:30 rn 09/08 04:06 Order name: O2 Per Protocol; Complete Time: 04:30 rn 09/08 04:06 Order name: O2 Sat Monitoring; Complete Time: 04:30 rn 09/08 04:06 Order name: Urine Dipstick-Ancillary (obtain specimen); Complete Time: 04:54 rn 09/08 05:34 Order name: CONS Pharmacy Consult [facility] 09/08 05:34 Order name: CONS Physician Consult [facility] 09/08 05:34 Order name: Heart Healthy EDNM Administered Medications: 04:15 Drug: SOLU-Medrol 125 mg Route: IVP; Site: left antecubital; jb4 04:15 Drug: NS 0.9% 1000 ml Route: IV; Rate: 1000 ml; Site: left antecubital; jb4 05:55 Follow up: Response: No adverse reaction; IV Status: Completed infusion; IV Intake: jb4 1000ml 04:20 Drug: Xopenex (3) 1.25 mg Route: Inhalation; jb4 05:28 Follow up: Response: No adverse reaction; Wheezing diminished jb4 04:20 Drug: Tylenol 650 mg Route: PO; jb4 05:30 Follow up: Response: No adverse reaction; Temperature is decreased jb4 05:00 Drug: LevaQUIN 750 mg Volume: 150 ml; Route: IVPB; Infused Over: 90 mins; Site: left jb4 antecubital; 06:30 Follow up: Response: No adverse reaction; IV Status: Completed infusion; IV Intake: jb4 150ml 05:10 Drug: NS 0.9% 500 ml Route: IV; Rate: bolus; Site: left antecubital; jb4 05:49 Follow up: Response: No adverse reaction; IV Status: Completed infusion; IV Intake: jb4 500ml 05:10 Drug: NS 0.9% 1000 ml Route: IV; Rate: 100 ml/hr; Site: left antecubital; jb4 05:23 Drug: Insulin Regular Human 10 units {Co-Signature: pavan (Kwaku Gamboa RN).} Route: Sub-Q; 4 Site: right lower abdomen; 06:08 Follow up: Response: No adverse reaction; Blood sugar is lowered jb4 06:36 Drug: NS 0.9% 500 ml Route: IV; Rate: bolus; Site: right antecubital; jb4 07:11 Follow up: Response: No adverse reaction; IV Status: Completed infusion; IV Intake: jb4 500ml Disposition: 09/08/18 04:49 Hospitalization ordered by Christopher Ro for Inpatient Admission. Preliminary diagnosis are Failed outpatient therapy for pneumonia, Pneumonia, Chronic obstructive pulmonary disease with acute lower respiratory infection, Chronic obstructive pulmonary disease with (acute) exacerbation, Dyspnea, unspecified, Hypoxemia, Urinary tract infection, site not specified, Hyperglycemia, unspecified. - Bed requested for Telemetry/MedSurg (Inpatient). - Status is Inpatient Admission. hb - Condition is Fair. - Problem is an ongoing problem. - Symptoms have improved. UTI on Admission? Yes Signatures: Dispatcher [employer] EDMS Dylan Graham MD MD rn Garcia, Cindy, RN RN cg Ortiz, Alex, RN RN ao Baxter, Heather, RN RN hb Josiah Hanna RN RN jb4 Kwaku browne Corrections: (The following items were deleted from the chart) 04:57 04:49 Hospitalization Ordered by Christopher Ro MD for Inpatient Admission. Preliminary rn diagnosis is Failed outpatient therapy for pneumonia; Pneumonia; Chronic obstructive pulmonary disease with acute lower respiratory infection; Chronic obstructive pulmonary disease with (acute) exacerbation; Dyspnea, unspecified; Hypoxemia. Bed requested for Telemetry/MedSurg (Inpatient). Status is Inpatient Admission. Condition is Fair. Problem is an ongoing problem. Symptoms have improved. UTI on Admission? No. rn 04:57 04:57 09/08/2018 04:49 Hospitalization Ordered by Christopher Ro MD for Inpatient rn radiation. Preliminary diagnosis is Failed outpatient therapy for pneumonia; Pneumonia; Chronic obstructive pulmonary disease with acute lower respiratory infection; Chronic obstructive pulmonary disease with (acute) exacerbation; Dyspnea, unspecified; Hypoxemia. Bed requested for Telemetry/MedSurg (Inpatient). Status is Inpatient Admission. Condition is Fair. Problem is an ongoing problem. Symptoms have improved. UTI on Admission? Yes. rn 05:07 04:57 09/08/2018 04:49 Hospitalization Ordered by Christopher Ro MD for Inpatient rn radiation. Preliminary diagnosis is Failed outpatient therapy for pneumonia; Pneumonia; Chronic obstructive pulmonary disease with acute lower respiratory infection; Chronic obstructive pulmonary disease with (acute) exacerbation; Dyspnea, unspecified; Hypoxemia; Urinary tract infection, site not specified. Bed requested for Telemetry/MedSurg (Inpatient). Status is Inpatient Admission. Condition is Fair. Problem is an ongoing problem. Symptoms have improved. UTI on Admission? Yes. rn 06:42 05:07 09/08/2018 04:49 Hospitalization Ordered by Christopher Ro MD for Inpatient cg Admission. Preliminary diagnosis is Failed outpatient therapy for pneumonia; Pneumonia; Chronic obstructive pulmonary disease with acute lower respiratory infection; Chronic obstructive pulmonary disease with (acute) exacerbation; Dyspnea, unspecified; Hypoxemia; Urinary tract infection, site not specified; Hyperglycemia, unspecified. Bed requested for Telemetry/MedSurg (Inpatient). Status is Inpatient Admission. Condition is Fair. Problem is an ongoing problem. Symptoms have improved. UTI on Admission? Yes. rn 07:53 06:42 09/08/2018 04:49 Hospitalization Ordered by Christopher Ro MD for Inpatient hb Admission. Preliminary diagnosis is Failed outpatient therapy for pneumonia; Pneumonia; Chronic obstructive pulmonary disease with acute lower respiratory infection; Chronic obstructive pulmonary disease with (acute) exacerbation; Dyspnea, unspecified; Hypoxemia; Urinary tract infection, site not specified; Hyperglycemia, unspecified. Bed requested for Telemetry/MedSurg (Inpatient). Status is Inpatient Admission. Condition is Fair. Problem is an ongoing problem. Symptoms have improved. UTI on Admission? Yes. cg
[2018-09-08 04:57] LABS: Potassium 4.2 mmol/L (3.5-5.1)
[2018-09-08] MEDS ORDERED: Levofloxacin 750mg IV 750 MG/150 ML BAG IV ONE (05:12)
[2018-09-08 05:16] LABS: Urine Blood TRACE (NEG); Urine Glucose 3+ (NEG); Urine Protein NEGATIVE (NEG)
[2018-09-08] MEDS ORDERED: NA CHLORIDE 0.9% 500 ML ONE (05:23)
[2018-09-08] MEDS ORDERED: MORPHINE 2 MG/ML SYR IV PRN (05:27)
[2018-09-08] MEDS ORDERED: ACETAMINOPHEN 500 MG TAB PO PRN (05:27)
[2018-09-08] MEDS ORDERED: ONDANSETRON 4 MG/2 ML VIAL IV PRN (05:27)
[2018-09-08] MEDS ORDERED: D50W 25 GM/50 ML SYRINGE IV PRN ×2 (05:35→11:45)
[2018-09-08] MEDS ORDERED: GLUCAGON 1 MG/VIAL IM PRN ×2 (05:35→11:45)
[2018-09-08] MEDS ORDERED: INSULIN -REGULAR HUMAN 50 UNIT/0.5 ML ML ONE (05:37)
[2018-09-08 05:38] LABS: Urine Bacteria >50 /HPF (<20); Urine RBC <5 /HPF (NONE SEEN)
[2018-09-08 05:39] LABS: Urine Culture Reflex Order NOT NEEDED
[2018-09-08] MEDS ORDERED: NA CHLORIDE 0.9% 1,000 ML IV SCH ×2 (06:00→13:00)
[2018-09-08] MEDS ORDERED: METHYLPREDNISOLONE 125 MG INJ IV SCH (06:00)
[2018-09-08 06:37] LABS: ALT/SGPT 15 U/L (12-78); AST/SGOT 12 U/L (15-37); Albumin 2.5 g/dL (3.4-5.0); Alkaline Phosphatase 69 U/L (45-117); Bilirubin Direct 0.1 mg/dL (0-0.2); Bilirubin Total 0.2 mg/dL (0.2-1.0); Protein, Total 6.3 g/dL (6.4-8.2); Troponin I < 0.02 ng/mL (0.0-0.045)
--- NOTE | 2018-09-08 06:38 | EKG ---
Test Date: 2018-09-08 Test Time: 04:44:09 Car Shakeout Operator: CLEOPATRA MEASUREMENT RESULTS: Intervals: Rate: 106 WI: 124 QRSD: 72 QT: 332 QTc: 441 Culver: P: 72 WI: 124 QRS: 46 T: 71 INTERPRETIVE STATEMENTS: Sinus tachycardia Septal infarct, age undetermined Abnormal ECG Compared to ECG 09/10/2017 19:07:09 Atrial abnormality no longer present Myocardial infarct finding still present Electronically Signed On 09-08-18 06:38:34 CDT by Hao Matthew
[2018-09-08] MEDS ORDERED: AZITHROMYCIN IV 250 MG in NA CHLORIDE 0.9% 250 ML IVPB SCH ×2 (07:00→09:00)
[2018-09-08] MEDS ORDERED: CEFTRIAXONE 1 GM/NS 50 ML 1 GM/50 ML BAG IV SCH (07:00)
[2018-09-08] MEDS ORDERED: ALBUTEROL 2.5 MG/3 ML NEB SOL NEB SCH (08:00)
[2018-09-08] MEDS ORDERED: INSULIN GLARGINE 100 UNITS/ML SQ SCH (08:00)
[2018-09-08] MEDS ORDERED: IPRATROPIUM BROM 0.5MG/2.5ML NEB SCH (08:00)
--- NOTE | 2018-09-08 08:55 | RAD REPORT ---
EXAM DESCRIPTION: RAD - Chest Single View - 09/08/2018 4:30 am CLINICAL HISTORY: Cough, fever, dyspnea COMPARISON: November 2017 TECHNIQUE: AP portable chest image was obtained 0426 hours . FINDINGS: Lung volumes are low compared to the prior study. No peripheral mass or consolidation. No failure or volume overload. Interstitial markings are accentuated by shallow inspiration. This could potentially mask early interstitial edema or infiltrate. Heart and vasculature are normal. No measurable pleural effusion and no pneumothorax. No acute bony abnormality seen. No acute aortic findings suspected. IMPRESSION: No focal mass or consolidation. Interstitial markings are accentuated by shallow inspiration. This potentially masks early interstiti al edema or infiltrate.
[2018-09-08] MEDS ORDERED: CEFTRIAXONE/SWI 1gm 1 GM/10 ML SYR IV SCH ×2 (09:00)
[2018-09-08] MEDS: predniSONE 20 MG TAB PO SCH ×2 (09:38→20:47)
[2018-09-08] MEDS: glyBURIDE 2.5 MG TAB PO SCH ×2 (09:38→16:48)
--- NOTE | 2018-09-08 11:22 | P.HP ---
Certification for Inpatient Patient admitted to: Inpatient With expected LOS: >2 Midnights Patient will require the following post-hospital care: None Practitioner: I am a practitioner with admitting privileges, knowledge of patient current condition, hospital course, and medical plan of care. Services: Services provided to patient in accordance with Admission requirements found in Title 42 Section 412.3 of the Code of Federal Regulations Patient History Date of Service: 09/08/18 Reason for admission: SHORTNESS OF BREATH /LETHARGIC History of Present Illness: PATIENT IS A 78-YEAR-OLD FEMALE WHO CAME TO THE HOSPITAL WITH WORSENING RESPIRATORY STATUS. PATIENT WAS DIAGNOSED BY DR. LUNA OFFICE WITH PNEUMONIA. PATIENT WAS STARTED ON ANTIBIOTICS. HOWEVER, PATIENT HAS NOT BEEN DOING WELL. HER RESPIRATORY STATUS HAS WORSENED. SHE HAS BECOME MORE LETHARGIC AND NOT EATING OR DRINKING MUCH OF ANYTHING. SHE LIVES WITH HER DAUGHTER WHO BROUGHT HER INTO THE HOSPITAL FOR FURTHER EVALUATION. HER DAUGHTER STATES THAT SHE HAS BEEN LOSING WEIGHT. SHE HAS GOT REALLY WEAK AND ONLY GETS AROUND WITH A WALKER. ANY KIND OF EXERTION AND SHE GETS REALLY SEVERE RESPIRATORY DISTRESS. SHE HAS SIGNIFICANT MUSCLE WASTING IN HER LOWER EXTREMITY. MOST OF THE HISTORY WAS OBTAINED BY THE DAUGHTER. MS. ARCE HAS HAD A SIGNIFICANT DECLINE AND IS REFUSING TO DO ANYTHING. THE DAUGHTER FEELS LIKE SHE HAS LOST SO WE WILL TO LIVE. SHE DOES NOT DO MUCH TO LAY IN BED AND SLEEPS ALL DAY LONG. HER LONG- TERM PROGNOSIS IS VERY POOR. WE MAY NEED TO GET PHYSICAL THERAPY TO WORK WITH HER. SHE DEFINITELY NEEDS HER LOWER EXTREMITY MUSCLE STRENGTH IN. SHE MAY HAVE A SPINAL INJURY WELL. SHE HAS NO COMPLAINTS OF BACK PAIN AT THIS TIME. HOWEVER, THERE IS A SIGNIFICANT ATROPHY OF THE LOWER EXTREMITY COMPARED TO THE UPPER EXTREMITY. Allergies Penicillins Allergy (Verified 04/25/16 14:35) swelling Home Medications: Amlodipine [Norvasc*] 5 mg PO DAILY 11/13/17 Duloxetine HCl [Cymbalta] 60 mg PO DAILY 11/13/17 Fenofibrate 160 mg PO DAILY 11/13/17 Gabapentin [Neurontin*] 300 mg PO TID 11/13/17 Losartan Potassium 100 mg PO DAILY 11/13/17 Tizanidine HCl 2 mg PO DAILY 11/13/17 Trazodone [Desyrel*] 150 mg PO BEDTIME PRN 11/13/17 Metformin HCl [Glucophage] 500 mg PO BID 09/08/18 Metoprolol Succinate [Toprol Xl] 25 mg PO DAILY 09/08/18 predniSONE [Deltasone] 10 mg PO DAILY PRN 09/08/18 - Past Medical/Surgical History Has patient received pneumonia vaccine in the past: Yes Diabetic: Yes -: COPD -: Chronic Kidney dz -: NIDDM -: Sciatica -: arthritis -: neuropathy -: hypercholesterimia -: HTN -: hysterectomy -: Partial cornea replacement L eye - Family History Father Medical History: Heart disease, Hypertension, Stroke Mother Medical History: Heart disease, Hypertension Notes: Tish - Social History Smoking Status: Current every day smoker Alcohol use: No CD- Drugs: No Caffeine use: No Review of Systems 10-point ROS is otherwise unremarkable Physical Examination - Vital Signs Temperature: 98.6 F Blood Pressure: 112/57 Pulse: 105 Respirations: 21 - Physical Exam General: Alert, In no apparent distress, Oriented x1, Confused, Other ( LETHARGIC) HEENT: Atraumatic, PERRLA, Mucous membr. moist/pink, EOMI, Sclerae nonicteric Neck: Supple, 2+ carotid pulse no bruit, No LAD, Without JVD or thyroid abnormality Respiratory: Diminished, Expiratory wheezes Cardiovascular: Regular rate/rhythm, Normal S1 S2, Systolic murmur Gastrointestinal: Normal bowel sounds, Soft and benign, Non-distended, No tenderness Musculoskeletal: Other ( LOWER EXTREMITY MUSCULAR ATROPHY) Integumentary: No rashes Neurological: Sensation intact, Cranial nerves 3-12 intact, Abnormal gait, Abnormal strength, Abnormal affect Lymphatics: No axilla or inguinal lymphadenopathy - Studies Laboratory Data (last 24 hrs) 09/08/18 03:55: WBC 11.2 H, Hgb 11.5 L, Hct 35.3 L, Plt Count 239 09/08/18 03:55: Sodium 135 L, Potassium 4.2, BUN 30 H, Creatinine 1.47 H, Glucose 527 H* Assessment & Plan - Problems (Diagnosis) (1) Muscular atrophy Current Visit: Yes Status: Acute (2) COPD with acute exacerbation Current Visit: Yes Status: Acute (3) Metabolic alkalosis Current Visit: Yes Status: Acute (4) Leukocytosis Current Visit: Yes Status: Acute (5) Acute on chronic renal failure Onset Date: 04/17/16 Current Visit: No Status: Acute Qualifiers: (6) Depression Onset Date: 09/13/17 Current Visit: No Status: Chronic Qualifiers: - Plan -NEBS, STEROIDS, AND ANTIBIOTICS -O2 PER PROTOCOL. -REPEAT CHEST X-RAY AND EVALUATED WITH CT SCAN -PULMONARY CONSULTATION - MAY CONSULT NEPHROLOGY IF RENAL FUNCTION DOES NOT IMPROVE WITH HYDRATION - PATIENT WILL NEED PHYSICAL THERAPY EVALUATION WELL. SHE HAS SIGNIFICANT BILATERAL LOWER EXTREMITY MUSCULAR ATROPHY. THIS MAY NEED FURTHER EVALUATION WELL. - SHE MAY NEED ANTIDEPRESSANT WELL. SHE IS NOT DOING MUCH WITH SLEEPING THROUGHOUT THE DAY. HER PROGNOSIS IS POOR IF SHE DOES NOT GET MORE ACTIVE GOING FORWARD. Discharge Plan: Home Plan to discharge in: Greater than 2 days - Advance Directives Does patient have a Living Will: No Does patient have a Durable POA for Healthcare: No - Code Status/Comfort Care Code Status Assessed: Yes Code Status: Full Code Critical Care: No Time Spent Managing PTS Care (In Minutes): 50
[2018-09-08] MEDS: INSULIN -REGULAR HUMAN 50 UNIT/0.5 ML ML SQ SCH ×5 (12:02→20:47)
[2018-09-08 12:24] LABS: Urine Appearance CLEAR; Urine Bilirubin NEGATIVE (NEG); Urine Blood NEGATIVE (NEG); Urine Color YELLOW; Urine Glucose 3+ (NEG); Urine Protein NEGATIVE (NEG); Urine Specific Gravity >=1.030 (1.005-1.030); Urine Urobilinogen 0.2 mg/dL (0.2-1.0)
[2018-09-08] MEDS ORDERED: TRAZODONE 150 MG TAB PO PRN (12:38)
[2018-09-08 12:42] LABS: Urine Bacteria 20-50 /HPF (<20); Urine Culture Reflex Order REFLEXED; Urine Mucus 1+ /HPF (NONE SEEN); Urine RBC <5 /HPF (NONE SEEN)
[2018-09-08] MEDS ORDERED: NA CHLORIDE 0.9% 250 ML IV ONE (12:45)
[2018-09-08] MEDS ORDERED: ALBUTEROL 2.5 MG/3 ML NEB SOL NEB PRN (12:49)
[2018-09-08] MEDS ORDERED: IPRATROPIUM BROM 0.5MG/2.5ML NEB PRN (12:49)
--- NOTE | 2018-09-08 13:08 | P.PN ---
Subjective Date of Service: 09/08/18 Primary Care Provider: Dr. Murcia Chief Complaint: SHORTNESS OF BREATH /LETHARGIC Subjective: Improving Physical Examination - Vital Signs Temperature: 97.2 F Blood Pressure: 168/74 Pulse: 111 Respirations: 20 Pulse Ox (%): 95 - Physical Exam General: Alert, In no apparent distress, Cooperative HEENT: Atraumatic Neck: Supple Respiratory: Expiratory wheezes, Inspiratory wheezes Cardiovascular: Normal pulses, Regular rate/rhythm Gastrointestinal: Normal bowel sounds, Soft and benign, Non-distended, No masses , No rebound, No guarding Musculoskeletal: Other (Muscle wasting to the upper lower extremities) Neurological: Normal speech, Normal strength at 5/5 x4 extr, Normal tone, Normal affect - Studies Laboratory Data (last 24 hrs) 09/08/18 03:55: WBC 11.2 H, Hgb 11.5 L, Hct 35.3 L, Plt Count 239 09/08/18 03:55: Sodium 135 L, Potassium 4.2, BUN 30 H, Creatinine 1.47 H, Glucose 527 H* Medications List Reviewed: Yes Assessment & Plan Discharge Plan: Home Plan to discharge in: 72 Hours Physician Review Additional Text: Impression: Acute on chronic respiratory failure secondary to COPD exacerbation on chronic oxygen Acute on chronic renal failure stage 4 likely underlying dehydration Suspect UTI Diabetes mellitus type 2, non-insulin dependent, uncontrolled with hyperglycemia Hypertension Hyperlipidemia Diabetic neuropathy Anemia of chronic disease Plan: Acute on chronic respiratory failure secondary to COPD exacerbation on chronic oxygen: The patient is seen by pulmonology. IV steroids changed to oral. Continue with COPD treatment. Patient with chronic oxygen. No evidence of pneumonia. Medications adjusted. Continue to wean off oxygen. Will continue to reassess. DVT prophylaxis initiated. Acute on chronic renal failure stage 4 likely underlying dehydration: Patient given IV fluids in the ER. Will continue with IV fluids at this time. Will recheck lab this afternoon. Will consult nephrology for further recommendation. Suspect UTI: Possible underlying UTI. Will initiate antibiotic therapy. Await urine culture results. Will obtain blood culture results. Diabetes mellitus type 2, non-insulin dependent, uncontrolled with hyperglycemia : A1c elevated. Diabetes not well controlled. Basal insulin started. Will adjust basal insulin for better control. Blood sugars elevated likely related to diet and steroids. Will continue with aggressive scale and get this better managed. Hold metformin due to chronic renal failure. Hypertension: Restart medication. Hyperlipidemia: Restart medication. Diabetic neuropathy: Restart medication. Anemia of chronic disease: Will monitor closely. Will check for iron and B12 studies. Time Spent Managing Pts Care (In Minutes): 55
--- NOTE | 2018-09-08 13:18 | P.CNS ---
Date of Consult: 09/08/18 Primary Care Provider: Dr. Murcia Chief Complaint: SHORTNESS OF BREATH /LETHARGIC History of Present Illness: This 69 years of age with a history of COPD very heavy smoker admitted with worsening dyspnea cough congestion for the past 2 weeks denies any fever or chills. 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 Feeling better since admission Allergies Penicillins Allergy (Verified 04/25/16 14:35) swelling Home Medications: Amlodipine [Norvasc*] 5 mg PO DAILY 11/13/17 Duloxetine HCl [Cymbalta] 60 mg PO DAILY 11/13/17 Fenofibrate 160 mg PO DAILY 11/13/17 Gabapentin [Neurontin*] 300 mg PO TID 11/13/17 Losartan Potassium 100 mg PO DAILY 11/13/17 Tizanidine HCl 2 mg PO DAILY 11/13/17 Trazodone [Desyrel*] 150 mg PO BEDTIME PRN 11/13/17 Metformin HCl [Glucophage] 500 mg PO BID 09/08/18 Metoprolol Succinate [Toprol Xl] 25 mg PO DAILY 09/08/18 predniSONE [Deltasone] 10 mg PO DAILY PRN 09/08/18 - Past Medical/Surgical History Diabetic: Yes -: COPD -: Chronic Kidney dz -: NIDDM -: Sciatica -: arthritis -: neuropathy -: hypercholesterimia -: HTN -: hysterectomy -: Partial cornea replacement L eye - Family History Father Medical History: Heart disease, Hypertension, Stroke Mother Medical History: Heart disease, Hypertension Notes: Tish - Social History Smoking Status: Current every day smoker Alcohol use: No CD- Drugs: No Caffeine use: No Review of Systems 10-point ROS is otherwise unremarkable General: Weakness Respiratory: Cough, Shortness of Breath Physical Examination Temp Pulse Resp BP Pulse Ox 97.2 F 111 H 20 168/74 H 95 09/08/18 13:07 09/08/18 13:07 09/08/18 13:07 09/08/18 13:07 09/08/18 13:07 General: Alert, In no apparent distress, Oriented x3 HEENT: Atraumatic Neck: Supple Respiratory: Clear to auscultation bilaterally, Expiratory wheezes Cardiovascular: No edema, Regular rate/rhythm, Normal S1 S2 Gastrointestinal: Normal bowel sounds, Soft and benign Laboratory Data (last 24 hrs) 09/08/18 03:55: WBC 11.2 H, Hgb 11.5 L, Hct 35.3 L, Plt Count 239 09/08/18 03:55: Sodium 135 L, Potassium 4.2, BUN 30 H, Creatinine 1.47 H, Glucose 527 H* - Problems (1) COPD with acute exacerbation Current Visit: Yes Status: Acute Plan: Patient is 78 years of age a very heavy smoker 1 pack a day admitted with exacerbation of her underlying COPD chest x-ray no obvious infection patient is very hyperglycemic cultures negative mild renal insufficiency change to p.o. prednisone she does have Symbicort at home can reduce the dose of prednisone tomorrow A1c is very elevated patient has uncontrolled diabetes vital signs oxygenation stable patient has oxygen at home possible discharge tomorrow
--- NOTE | 2018-09-08 14:02 | P.CNS ---
Date of Consult: 09/08/18 Reason for Consult: RAISSA Primary Care Provider: Dr. Murcia Chief Complaint: SHORTNESS OF BREATH /LETHARGIC History of Present Illness: a 78 Y/o woman with PMhx of active smoking, CPD, DM, HTN, CKD with baseline Cr ~ 1.0 pt was admitted for SOB and lethargy in ER Cr 1.4, BS >400 Pt currently , denied nay nausea, vomiting, chills, diarrhea or constipation Allergies Penicillins Allergy (Verified 04/25/16 14:35) swelling Home Medications: Amlodipine [Norvasc*] 5 mg PO DAILY 11/13/17 Duloxetine HCl [Cymbalta] 60 mg PO DAILY 11/13/17 Fenofibrate 160 mg PO DAILY 11/13/17 Gabapentin [Neurontin*] 300 mg PO TID 11/13/17 Losartan Potassium 100 mg PO DAILY 11/13/17 Tizanidine HCl 2 mg PO DAILY 11/13/17 Trazodone [Desyrel*] 150 mg PO BEDTIME PRN 11/13/17 Metformin HCl [Glucophage] 500 mg PO BID 09/08/18 Metoprolol Succinate [Toprol Xl] 25 mg PO DAILY 09/08/18 predniSONE [Deltasone] 10 mg PO DAILY PRN 09/08/18 - Past Medical/Surgical History Diabetic: Yes -: COPD -: Chronic Kidney dz -: NIDDM -: Sciatica -: arthritis -: neuropathy -: hypercholesterimia -: HTN -: hysterectomy -: Partial cornea replacement L eye - Family History Father Medical History: Heart disease, Hypertension, Stroke Mother Medical History: Heart disease, Hypertension Notes: Tish - Social History Smoking Status: Current every day smoker Alcohol use: No CD- Drugs: No Caffeine use: No Physical Examination Temp Pulse Resp BP Pulse Ox 97.2 F 111 H 20 168/74 H 95 09/08/18 13:07 09/08/18 13:07 09/08/18 13:07 09/08/18 13:07 09/08/18 13:07 General: Alert, In no apparent distress HEENT: Atraumatic Neck: Supple, Without JVD or thyroid abnormality Respiratory: Diminished, Inspiratory wheezes Cardiovascular: No edema, Normal pulses, Regular rate/rhythm, Normal S1 S2, No gallops, No rubs, No murmurs Gastrointestinal: Normal bowel sounds, Soft and benign Laboratory Data (last 24 hrs) 09/08/18 03:55: WBC 11.2 H, Hgb 11.5 L, Hct 35.3 L, Plt Count 239 09/08/18 03:55: Sodium 135 L, Potassium 4.2, BUN 30 H, Creatinine 1.47 H, Glucose 527 H* - Problems (1) Acute on chronic renal failure Onset Date: 04/17/16 Current Visit: No Status: Acute Qualifiers: Conclusions/Impression: RAISSA likely from pre-renal azoptemia 2/2 to hyperglycemic diuresis +/- ARB Agree with IVF UA: no prot or bld will dc losartan will order renal US HTN elevated home meds restarted will dc losartan COPD exacerbation Cont inhalers and O2 on levaquin DM off metformin as per primary possible UTI on levaquin F/U cx
[2018-09-08] MEDS: GABAPENTIN 300 MG CAP PO SCH ×2 (14:17→20:47)
--- NOTE | 2018-09-08 15:13 | RAD REPORT ---
EXAM DESCRIPTION: US - Renal Ultrasound-Complete - 09/08/2018 2:56 pm CLINICAL HISTORY: Acute renal insufficiency COMPARISON: September 2017 FINDINGS: The right kidney measures 10 cm with a normal echotexture. Two small echogenic foci are pr esent The left kidney measures with a normal echotexture. A 1.2 centimeter cyst Hydronephrosis is not seen. No gross abnormality of bladder is seen IMPRESSION: Two small echogenic foci within the right kidney may represent nonobstructing renal calc ramon Small left renal cyst
[2018-09-08 15:57] LABS: BUN Blood Urea Nitrogen 25 mg/dL (7-18); Bicarbonate 27 mmol/L (21-32); Ferritin 221.4 ng/mL (8-388); Potassium 4.2 mmol/L (3.5-5.1); Sodium Level 137 mmol/L (136-145); Transferrin 208 mg/dL (200-360); Troponin I < 0.02 ng/mL (0.0-0.045)
[2018-09-08 16:00] LABS: Glucose Level 499 mg/dL (74-106)
[2018-09-08] MEDS ORDERED: ENOXAPARIN 30 MG/0.3 ML SQ SCH (17:00)
[2018-09-08] MEDS: ARFORMOTEROL TARTRATE 15 MCG/2 ML VIAL.NEB NEB SCH (20:00)
[2018-09-08] MEDS: INSULIN GLARGINE 100 UNITS/ML SQ SCH (20:48)
[2018-09-08] MEDS ORDERED: METFORMIN HCL 500 MG TAB PO SCH (21:00)
[2018-09-08] MEDS ORDERED: GUAIFENESIN/CODEINE 5ML UCUP PO PRN (23:29)
[2018-09-09] MEDS ORDERED: METOPROLOL TARTRATE 5 MG/5 ML INJ IV STA (04:13)
[2018-09-09] MEDS ORDERED: METOPROLOL TAR 25 MG TAB PO SCH (06:00)
[2018-09-09] MEDS ORDERED: METOPROLOL XL 50 MG TAB PO SCH ×2 (06:00→21:00)
[2018-09-09 06:33] LABS: Absolute Lymphocytes (CBC) 1.3 K/uL (0.7-4.9); Basophils % 0.3 % (0-1.3); Hematocrit 34.1 % (36.0-45.0); MPV 8.4 fL (7.6-11.3); Monocytes % 3.6 % (3.3-12.3)
[2018-09-09 06:35] LABS: Protime INR 1.11
[2018-09-09 06:52] LABS: Bilirubin Total 0.1 mg/dL (0.2-1.0); Potassium 4.5 mmol/L (3.5-5.1); Protein, Total 7.2 g/dL (6.4-8.2)
[2018-09-09] MEDS ORDERED: Levofloxacin500mg IV 500 MG/100 ML BAG IV SCH (07:00)
[2018-09-09] MEDS: INSULIN -REGULAR HUMAN 50 UNIT/0.5 ML ML SQ SCH (07:30)
--- NOTE | 2018-09-09 07:55 | RAD REPORT ---
EXAM DESCRIPTION: Ghanshyam Liao And Salvador (2 Views)09/09/2018 6:31 am CLINICAL HISTORY: Shortness of breath COMPARISON: September 08, 2018 FINDINGS: The lungs remain hyperaerated The lungs appear clear of acute infiltrate. The heart is normal size IMPRESSION: No acute abnormalities displayed
[2018-09-09 08:05] LABS: Blood Morphology Comment NOT SEEN (NOT SEEN); Platelet Estimate ADEQ; Platelets, Giant FEW
[2018-09-09] MEDS: glyBURIDE 2.5 MG TAB PO SCH (08:23)
[2018-09-09] MEDS: INSULIN GLARGINE 100 UNITS/ML SQ SCH (08:23)
[2018-09-09] MEDS: predniSONE 20 MG TAB PO SCH (08:24)
[2018-09-09] MEDS: GABAPENTIN 300 MG CAP PO SCH (08:24)
[2018-09-09] MEDS ORDERED: FENOFIBRATE 160 MG TAB PO SCH (09:00)
[2018-09-09] MEDS ORDERED: DULOXETINE 30 MG CAP PO SCH (09:00)
[2018-09-09] MEDS ORDERED: LOSARTAN POTASSIUM 50 MG TABLET PO SCH (09:00)
[2018-09-09] MEDS ORDERED: AMLODIPINE 5 MG TAB PO SCH (09:00)
[2018-09-09] MEDS ORDERED: METOPROLOL TAR 50 MG TAB PO SCH (09:00)
[2018-09-09] MEDS ORDERED: METOPROLOL XL 25 MG TAB PO SCH (09:00)
[2018-09-09] MEDS: ARFORMOTEROL TARTRATE 15 MCG/2 ML VIAL.NEB NEB SCH (09:10)
--- NOTE | 2018-09-09 09:33 | P.DS ---
Admission Date: 09/08/18 Discharge Date: 09/09/18 Primary Care Provider: Dr. Murcia; Nephrology-Dr. Shelby Disposition: ROUTINE DISCHARGE Discharge Condition: GOOD Reason for Admission: SHORTNESS OF BREATH /LETHARGIC Consultations: Pulmonary-Dr. Meza Nephrology-Dr. Man Procedures: CXR follow up: COMPARISON: September 08, 2018 FINDINGS: The lungs remain hyperaerated The lungs appear clear of acute infiltrate. The heart is normal size IMPRESSION: No acute abnormalities displayed Renal US: COMPARISON: September 2017 FINDINGS: The right kidney measures 10 cm with a normal echotexture. Two small echogenic foci are present The left kidney measures with a normal echotexture. A 1.2 centimeter cyst Hydronephrosis is not seen. No gross abnormality of bladder is seen IMPRESSION: Two small echogenic foci within the right kidney may represent nonobstructing renal calculi Small left renal cyst Medical Problem List: Acute on chronic respiratory failure secondary to COPD exacerbation on chronic oxygen Acute on chronic renal failure stage 3 secondary to dehydration UTI Diabetes mellitus type 2, non-insulin dependent, uncontrolled with hyperglycemia Hypertension Hyperlipidemia Diabetic neuropathy Anemia of chronic disease with iron deficiency Right non obstructing renal calculi Brief History of Present Illness: 78-year-old female presented to the emergency room with increasing shortness of breath. Patient with history of COPD on chronic oxygen. Patient found to have acute on chronic respiratory failure with hypoxia and hypercapnia due to COPD exacerbation. Patient was admitted for treatment. Patient also found to be dehydrated. Elevated blood sugars noted. Hospital Course: Patient presented with increasing shortness of breath, fatigue and dehydration. This was secondary to acute on chronic respiratory failure related to COPD exacerbation. Patient on chronic oxygen. Her condition improved as the patient received COPD medication. At discharge she is without any significant chest pain, shortness of breath. Pulmonology was consulted. At discharge patient will continue with prednisone 20 mg 1 pill twice daily for 5 days then 1 pill once daily for 5 days. Patient will continue with COPD medication- Advair 1 puff twice daily and Pro air 2 puffs 3 times a day as needed for shortness of breath. At discharge she will continue with home oxygen to maintain sats above 90%. Recommend to follow up with pulmonology in 1-2 weeks to follow up this hospitalization and to continue her care. Tobacco cessation addressed in detail. Patient does not plan on quitting. Patient also presented with acute on chronic renal failure likely related to dehydration. Patient received IV fluids. Renal ultrasound shows nonobstructing calculi to the right side. Renal function now back to baseline. Nephrology was consulted. Medications also adjusted. Metformin and losartan were discontinued. At Discharge she will continue off metformin and losartan. Recommend to follow up with nephrology in 1-2 weeks to follow up this hospitalization. Recommend to recheck lab-BMP at that time. Recommend no further use of nonsteroidal anti-inflammatories. Future medications will need to be renally dosed. Nephrology will consider restarting losartan in the future. Patient was evaluated for UTI. Urine culture pending at this time. Patient did received antibiotic therapy in her hospital stay. At discharge she will continue with Omnicef 300 mg 1 pill twice daily for 7 days. Recommend UTI prevention. This can be followed up as an outpatient. PCP to follow up on urine culture results. Patient with diabetes mellitus type 2, non insulin dependent. Patient with hyperglycemia. Blood sugars were elevated upon admission. Patient required basal insulin and sliding scale for better control. A1c 9.4. Metformin was discontinued due to her chronic renal failure. Glyburide was discontinued due to risk of hypoglycemia. At discharge patient will continue with Levemir 10 units subcu twice daily. Recommend to monitor blood sugars at least twice daily. Recommend to maintain blood sugars less than 140 fasting and less than 200 after meals. Basal insulin may need to be increased by 1-2 units daily if blood sugars remain above 250. May need to decrease basal insulin if blood sugars remain below 100 or with poor oral intake. Recommend to follow up with PCP within 1 week to follow up her care and further adjust medication. Recommend to calibrate current glucometer at home and with recallibration of unit with every bottle change of accuchecks. Patient with hypertension. Medications adjusted during her stay. Losartan was discontinued due to her renal failure. Metoprolol was increased to twice daily. At discharge she will continue with Norvasc 5 mg daily and metoprolol XL 50 mg 1 pill twice daily. Recommend to maintain blood pressures less 150/ 80. Further adjustment can be done by her PCP. Nephrology is to reassess patient in the near future for possible re-initiation of losartan. Patient with diabetic neuropathy. At discharge she will continue with her medication-Cymbalta 60 mg daily and to gabapentin 300 mg 1 pill 3 times a day. Patient with anemia chronic disease. Patient found to be iron deficient. Patient may continue with multi vitamin daily. Recommend to recheck lab-CBC in 2-4 weeks to monitor progress. Patient with hyperlipidemia. She will continue with fenofibrate 160 mg daily. Patient takes trazodone 150 mg at night likely for insomnia. Recommend to hold medication if with increase sedation. Patient with tobacco abuse. Tobacco cessation addressed in detail. Patient does not have any desire to quit. Vital Signs/Physical Exam: Temp Pulse Resp BP Pulse Ox 97.6 F 91 H 17 164/94 H 96 09/09/18 08:00 09/09/18 08:24 09/09/18 08:00 09/09/18 08:24 09/09/18 08:00 General: Alert, In no apparent distress, Oriented x3, Cooperative HEENT: Atraumatic Neck: Supple Respiratory: Clear to auscultation bilaterally, Normal air movement Cardiovascular: Normal pulses, Regular rate/rhythm Gastrointestinal: Normal bowel sounds, Soft and benign, Non-distended, No tenderness, No masses, No rebound, No guarding Musculoskeletal: No erythema, No tenderness, No warmth Integumentary: No tenderness/swelling, No erythema, No warmth, No cyanosis Neurological: Normal speech, Normal strength at 5/5 x4 extr, Normal tone, Normal affect Laboratory Data at Discharge: WBC 16.8 K/uL (4.3-10.9) H D 09/09/18 05:49 Hgb 11.5 g/dL (12.0-15.0) L 09/09/18 05:49 Hct 34.1 % (36.0-45.0) L 09/09/18 05:49 Plt Count 287 K/uL (152-406) D 09/09/18 05:49 PT 13.0 SECONDS (9.5-12.5) H 09/09/18 05:49 INR 1.11 09/09/18 05:49 APTT 24.2 SECONDS (24.3-36.9) L 09/09/18 05:49 Sodium 140 mmol/L (136-145) 09/09/18 05:49 Potassium 4.5 mmol/L (3.5-5.1) 09/09/18 05:49 BUN 24 mg/dL (7-18) H 09/09/18 05:49 Creatinine 0.84 mg/dL (0.55-1.3) 09/09/18 05:49 Glucose 139 mg/dL (74-106) H 09/09/18 05:49 Magnesium 2.0 mg/dL (1.8-2.4) 09/09/18 05:49 Total Bilirubin 0.1 mg/dL (0.2-1.0) L 09/09/18 05:49 AST 24 U/L (15-37) 09/09/18 05:49 ALT 23 U/L (12-78) 09/09/18 05:49 Alkaline Phosphatase 66 U/L (45-117) 09/09/18 05:49 Troponin I < 0.02 ng/mL (0.0-0.045) 09/08/18 21:04 Home Medications: Amlodipine [Norvasc*] 5 mg PO DAILY 11/13/17 Duloxetine HCl [Cymbalta] 60 mg PO DAILY 11/13/17 Fenofibrate 160 mg PO DAILY 11/13/17 Gabapentin [Neurontin*] 300 mg PO TID 11/13/17 Trazodone [Desyrel*] 150 mg PO BEDTIME PRN 11/13/17 Albuterol Sulfate [Proair Respiclick] 90 mcg IH TID PRN #1 aer.pow.ba 09/09/18 Cefdinir [Cefdinir*] 300 mg PO BID #14 cap 09/09/18 Fluticasone/Salmeterol [Advair 250-50 Diskus] 1 each IH BID #1 blst.w.dev Insulin Detemir [Levemir Flextouch] 10 unit SQ BID #1 packet 09/09/18 Metoprolol Succinate [Toprol Xl*] 50 mg PO BID #60 tab 09/09/18 predniSONE [Prednisone*] 20 mg PO SEECOM #15 tab 09/09/18 New Medications: Albuterol Sulfate [Proair Respiclick] 90 mcg IH TID PRN #1 aer.pow.ba PRN Reason: Shortness Of Breath Cefdinir [Cefdinir*] 300 mg PO BID #14 cap Fluticasone/Salmeterol [Advair 250-50 Diskus] 1 each IH BID #1 blst.w.dev Insulin Detemir [Levemir Flextouch] 10 unit SQ BID #1 packet Metoprolol Succinate [Toprol Xl*] 50 mg PO BID #60 tab predniSONE [Prednisone*] 20 mg PO SEECOM #15 tab Patient Discharge Instructions: 1. Recommended follow up with her PCP in 1 week to follow up this hospitalization. 2. Patient presented with increasing shortness of breath, fatigue and dehydration. This was secondary to acute on chronic respiratory failure related to COPD exacerbation. Patient on chronic oxygen. Her condition improved as the patient received COPD medication. At discharge she is without any significant chest pain, shortness of breath. Pulmonology was consulted. At discharge patient will continue with prednisone 20 mg 1 pill twice daily for 5 days then 1 pill once daily for 5 days. Patient will continue with COPD medication-Advair 1 puff twice daily and Pro air 2 puffs 3 times a day as needed for shortness of breath. At discharge she will continue with home oxygen to maintain sats above 90%. Recommend to follow up with pulmonology in 1-2 weeks to follow up this hospitalization and to continue her care. Tobacco cessation addressed in detail. Patient does not plan on quitting. 3. Patient also presented with acute on chronic renal failure likely related to dehydration. Patient received IV fluids. Renal ultrasound shows nonobstructing calculi to the right side. Renal function now back to baseline. Nephrology was consulted. Medications also adjusted. Metformin and losartan were discontinued. At Discharge she will continue off metformin and losartan. Recommend to follow up with nephrology in 1-2 weeks to follow up this hospitalization. Recommend to recheck lab-BMP at that time. Recommend no further use of nonsteroidal anti-inflammatories. Future medications will need to be renally dosed. Nephrology will consider restarting losartan in the future. 4. Patient was evaluated for UTI. Urine culture pending at this time. Patient did received antibiotic therapy in her hospital stay. At discharge she will continue with Omnicef 300 mg 1 pill twice daily for 7 days. Recommend UTI prevention. This can be followed up as an outpatient. PCP to follow up on urine culture results. 5. Patient with diabetes mellitus type 2, non insulin dependent. Patient with hyperglycemia. Blood sugars were elevated upon admission. Patient required basal insulin and sliding scale for better control. A1c 9.4. Metformin was discontinued due to her chronic renal failure. Glyburide was discontinued due to risk of hypoglycemia. At discharge patient will continue with Levemir 10 units subcu twice daily. Recommend to monitor blood sugars at least twice daily. Recommend to maintain blood sugars less than 140 fasting and less than 200 after meals. Basal insulin may need to be increased by 1-2 units daily if blood sugars remain above 250. May need to decrease basal insulin if blood sugars remain below 100 or with poor oral intake. Recommend to follow up with PCP within 1 week to follow up her care and further adjust medication. Recommend to calibrate current glucometer at home and with recallibration of unit with every bottle change of accuchecks. 6. Patient with hypertension. Medications adjusted during her stay. Losartan was discontinued due to her renal failure. Metoprolol was increased to twice daily. At discharge she will continue with Norvasc 5 mg daily and metoprolol XL 50 mg 1 pill twice daily. Recommend to maintain blood pressures less 150/ 80. Further adjustment can be done by her PCP. Nephrology is to reassess patient in the near future for possible re-initiation of losartan. 7. Patient with diabetic neuropathy. At discharge she will continue with her medication- Cymbalta 60 mg daily and to gabapentin 300 mg 1 pill 3 times a day. 8. Patient with anemia chronic disease. Patient found to be iron deficient. Patient may continue with multi vitamin daily. Recommend to recheck lab-CBC in 2-4 weeks to monitor progress. 9. Patient with hyperlipidemia. She will continue with fenofibrate 160 mg daily. 10. Patient takes trazodone 150 mg at night likely for insomnia. Recommend to hold medication if with increase sedation. 11. Patient with tobacco abuse. Tobacco cessation addressed in detail. Patient does not have any desire to quit. Diet: ADA Activity: Fall precautions Time spent managing pt's care (in minutes): 55
--- NOTE | 2018-09-09 10:21 | P.PN ---
Subjective Date of Service: 09/09/18 Primary Care Provider: Dr. Murcia; Nephrology-Dr. Shelby Chief Complaint: COPD exacerbation Subjective: Improving (Doing better. No new complaints) Review of Systems Respiratory: Shortness of Breath Physical Examination - Vital Signs Temperature: 97.6 F Blood Pressure: 164/94 Pulse: 91 Respirations: 17 Pulse Ox (%): 96 - Physical Exam General: Alert, In no apparent distress, Oriented x3 Respiratory: Diminished, Expiratory wheezes Cardiovascular: No edema, Regular rate/rhythm - Studies Medications List Reviewed: Yes Assessment & Plan - Problems (Diagnosis) (1) COPD with acute exacerbation Current Visit: Yes Status: Acute Plan: AW COPD exacerbation. D/C home on pred and Advair LAbs rev. UA GN rods. D/C home f/u wiht 2 wks
--- NOTE | 2018-09-09 10:22 | P.PN ---
Subjective Date of Service: 09/09/18 Primary Care Provider: Dr. Murcia; Nephrology-Dr. Shelby Chief Complaint: SHORTNESS OF BREATH /LETHARGIC Subjective: Improving Today breathing normally, no wheezes Cr down to baseline cleared for discharge from nephrology point of view dc ARb f/u with nephrology clinic in 2-3 wks Physical Examination - Vital Signs Temperature: 97.6 F Blood Pressure: 164/94 Pulse: 91 Respirations: 17 Pulse Ox (%): 96 - Physical Exam General: Alert, Oriented x3 HEENT: Atraumatic Neck: Supple, Without JVD or thyroid abnormality Cardiovascular: No edema, Normal pulses, Regular rate/rhythm, Normal S1 S2, No gallops, No rubs, No murmurs Gastrointestinal: Normal bowel sounds Musculoskeletal: No swelling Integumentary: No rashes - Studies Medications List Reviewed: Yes Assessment And Plan - Current Problems (Diagnosis) (1) Acute on chronic renal failure Onset Date: 04/17/16 Current Visit: No Status: Acute Qualifiers: - Plan RAISSA likely from pre-renal azoptemia 2/2 to hyperglycemic diuresis +/- ARB Agree with IVF UA: no prot or bld will dc losartan HTN mildly elevated home meds restarted will dc losartan COPD exacerbation Cont inhalers and O2 on levaquin DM off metformin as per primary possible UTI on levaquin F/U cx
[2018-09-09] MEDS ORDERED: CEFDINIR 300 MG CAP PO SCH (21:00)
[2018-09-10] MEDS ORDERED: Levofloxacin 750mg IV 750 MG/150 ML BAG IV SCH (05:00)
[2018-09-10] MEDS ORDERED: SOD FERRIC GLUC COMPLX/SUCROSE 125 MG in NA CHLORIDE 0.9% 100 ML IV SCH (09:00)
== END 2018-09-09 11:14 | disposition home or self-care (01) | DRG 190 ==
LOC: ER 03:34 → ERHOLD 05:27 → 2ND 07:47 → 4TH 21:00
PROVIDERS: ADMIT Hospitalist; ATTEND Family Medicine
DX: J44.1 Chronic obstructive pulmonary disease with (acute) exacerbation (principal); J96.22 Acute and chronic respiratory failure with hypercapnia; J96.21 Acute and chronic respiratory failure with hypoxia; N17.9 Acute kidney failure, unspecified; E87.3 Alkalosis; N39.0 Urinary tract infection, site not specified; E86.0 Dehydration; Z99.81 Dependence on supplemental oxygen; N18.3 Chronic kidney disease, stage 3 (moderate); I12.9 Hypertensive chronic kidney disease with stage 1 through stage 4 chronic kidney disease, or unspecified chronic kidney disease; E11.22 Type 2 diabetes mellitus with diabetic chronic kidney disease; E11.40 Type 2 diabetes mellitus with diabetic neuropathy, unspecified; E11.65 Type 2 diabetes mellitus with hyperglycemia; E78.00 Pure hypercholesterolemia, unspecified; F17.210 Nicotine dependence, cigarettes, uncomplicated; M62.50 Muscle wasting and atrophy, not elsewhere classified, unspecified site; F32.9 Major depressive disorder, single episode, unspecified; D63.8 Anemia in other chronic diseases classified elsewhere; N20.0 Calculus of kidney; D50.9 Iron deficiency anemia, unspecified; Z79.84 Long term (current) use of oral hypoglycemic drugs; Z88.0 Allergy status to penicillin
CPT/HCPCS: 36415; 71045; 71046; 76770; 80048; 80053; 80076; 81001; 81003; 81015; 82607; 82728; 82947; 82962; 83036; 83540; 83605; 83735; 83880; 84145; 84466; 84484; 85025; 85610; 85730; 87040; 87077; 87086; 87088; 87186; 93005; 94640; 96361; 96365; 96372; 96375; 99285; J0456; J0696; J1650; J2930; J7030; J7512; J7605

== ENCOUNTER 2019-07-30 11:10 | Emergency (ER) | payer OTHER ==
--- OUTSIDE RECORDS SUMMARY | 2019-07-30 11:13 | XMS REPORT ---
:1940 Author Name Darcy Care Team Providers Name Role Phone Ava[facility] Unavailable Reason for Referral No Reason for Referral was given. History of Present Illness No HPI available. Problems Normal Routine History And Physical Senior Citizen (65-80) (V70.0); ( Active)Joint Pain, Localized In The Hip (719.45); (Active)Spinal Stenosis (724.00); (Active)Lower Back Pain (724.2); (Active) Medication No Active Medications Allergies and Adverse Reactions Not Known Past Medical History No Significant Medical History Treatment Plan Orthopedics Referral 06/06/2012 Routine Advance Directives No Advance Directives available. Encounters AUDIT 06/06/2012
--- OUTSIDE RECORDS SUMMARY | 2019-07-30 11:13 | XMS REPORT | Continuity of Care Document ---
:1940 Author Organization [facility] Care Team Providers Name Role Phone [facility] Unavailable Un available Problems Problem Status Onset Classification Date Comments Sourc e Date Reported Joint Pain, Active 06/21/2012 [facility] Localized In The Hip Lower Back Active 06/21/2012 [facility] Pain Spinal Active 06/21/2012 [facility] Stenosis Medications Medication Details Route Status Patient Ordering Order Source Instructions Provider Date No Active No Active Active [facility] Medications Medications Physicia ns Allergies, Adverse Reactions, Alerts Substance Category Reaction Severity Reaction Status Date Comments S ource type Reported Not Known [facility] Immunizations No Data Provided for This Section Results No Data Provided for This Section Pathology Reports No Data Provided for This Section Diagnostic Reports No Data Provided for This Section Consultation Notes No Data Provided for This Section Discharge Summaries No Data Provided for This Section History and Physicals No Data Provided for This Section Vital Signs No Data Provided for This Section Encounters Location Location Encounter Encounter Reason Attending ADM [facility] Source Details Type Number For Provider Date Date Visit AUDIT [id number] 06/06 [facility] [id number] 06/20 [facility] [place], [id number] 07/05 06/21 [facility] Provider: MERCEDES Lewis, Status: Pen, Time: 10:30 AM Procedures No Data Provided for This Section Assessment and Plan No Data Provided for This Section Plan of Care Plan of Care Date Source Orthopedics Referral 06/06/2012 06/21/2012 [facility] Routine Orthopedics Referral 06/06/2012 06/06/2012 [facility] Routine Social History No Data Provided for This Section Family History No Data Provided for This Section Advance Directives Order Name Results Value Date Source Advance Directives Advance Directives No Advance 06/21/2012 [facility] Directives available. Advance Directives Advance Directives No Advance 06/06/2012 [facility] Directives available. Functional Status No Data Provided for This Section
--- OUTSIDE RECORDS SUMMARY | 2019-07-30 11:13 | XMS REPORT ---
:1940 Author Name Darcy Care Team Providers Name Role Phone Taveras Unavailable Reason for Referral No Reason for Referral was given. History of Present Illness No HPI available. Problems Normal Routine History And Physical Senior Citizen (65-80) (V70.0); ( Active)Joint Pain, Localized In The Hip (719.45); (Active)Lower Back Pain (724.2); (Active)Spinal Stenosis (724.00); (Active) Medication No Active Medications Allergies and Adverse Reactions Not Known Past Medical History No Significant Medical History Treatment Plan Orthopedics Referral 06/06/2012 Routine Advance Directives No Advance Directives available. Encounters AUDIT 06/20/2012NEW, Provider: DENNY ARCE, Status: Asher, Time: 10:30 AM 07/05/2012
--- OUTSIDE RECORDS SUMMARY | 2019-07-30 11:13 | XMS REPORT ---
:1940 Author Organization [facility] t Address [address] [place] [address] Care Team Providers Name Role Phone Onelia LORENZO Attending Clinician Mauricio ALCALA Attending Clinician Nereida Faye Attending Clinician Doctor Unassigned, Name Attending Clinician Unavailable Problems This patient has no known problems. Allergies, Adverse Reactions, Alerts This patient has no known allergies or adverse reactions. Medications This patient has no known medications. Procedures This patient has no known procedures. Encounters Start End Encounter Admission Attending Care Care Encounter Source Date/Time Date/Time Type Type Clinicians Facility Department ID 2019-07-10 2019-07-10 Telephone SHERINE Rousseau [id number] 00:00:00 00:00:00 Nikita Macdonald [id number] [place] [id number] Professio [phone] nal 085 [facility] 2019-06-07 2019-06-07 Telephone BURAK Martínez [id number] 00:00:00 00:00:00 Hubert MICHAEL [id number] [place] [id number] 2019-05-18 2019-05-18 [facility] SHERINE Vargas [id number] 11:11:00 23:59:00 Encounter Alexsandra Macdonald [id number] [place] [id number] [place] [id number] 2019-05-18 2019-05-18 Telephone Mauricio [facility] [id number] 00:00:00 00:00:00 Hubert Macdonald [id number] [place] [id number] Professio [id number] [address] 2019-05-09 2019-05-09 [facility] Sam [facility] [id number] 00:00:00 00:00:00 Management Alexsandra Macdonald [id number] [place] [id number] Professio [id number] [address] 2019-05-09 2019-05-09 José Luis Vargas [facility] [id number] 00:00:00 00:00:00 Management Alexsandra Macdonald [id number] [place] [id number] Professio [id number] [address] 2019-05-09 2019-05-09 [facility] [id number] 00:00:00 00:00:00 Hubert Macdonald [id number] [place] [id number] Professio [id number] [address] 2019-05-08 2019-05-08 [facility] [id number] 09:26:22 10:36:25 Visit Hubert Macdonald [id number] [place] [id number] Professio [phone] [address] 2019-05-08 2019-05-08 Orders Doctor BURAK [id number] 00:00:00 00:00:00 Only Unassigned, ALEC 350.1.13.10 [facility] [id number] 2012-06-20 2012-06-20 Outpatient MHIEALT MHIEALT [id number] 19:17:33 19:17:14 2012-06-06 2012-06-06 [facility] [id number] 18:04:22 18:04:04 Results This patient has no known results.
--- OUTSIDE RECORDS SUMMARY | 2019-07-30 11:15 | XMS REPORT | Summary of Care ---
:[address] [facility] - Health Address [address] [place] [address] Care Team Providers Name Role Phone Pcp, Does Not Have A Primary Care Provider Encounter Details Date Type Department Care Team Description 04/25/[address] [facility] Doctor Unassigned, No [address] [facility] [address] [address] [place] [address] Allergies Active Allergy Reactions Severity Noted Date Comments Penicillins Swelling 06/04/2014 documented as of this encounter (statuses as of 05/04/2019) Medications Medication Sig Dispensed Refills Start Date End Date Status traZODONE (DESYREL) 100 Take 100 mg by 0 Active mg tablet mouth at bedtime. DULoxetine (CYMBALTA) 30 Take 30 mg by 0 Active mg capsule mouth daily. hydrochlorothiazide Take 12.5 mg by 0 Active (ESIDRIX) 12.5 mg capsule mouth daily. lisinopril Take 40 mg by 0 Activ e (PRINIVIL,ZESTRIL) 40 mg mouth daily. tablet atorvastatin (LIPITOR) 40 Take 40 mg by 0 Active mg tablet mouth at bedtime. aspirin 81 mg chewable Take 81 mg by 0 Active tablet mouth daily. promethazine (PHENERGAN) Take 50 mg by 0 Active 50 mg tablet mouth every 6 (six) hours as needed. gabapentin (NEURONTIN) Take 100 mg by 0 Active 100 mg capsule mouth daily. acetaminophen (TYLENOL) Take 20.25 mL 350 mL 1 06/06/2014 Active 160 mg/5 mL liquid by mouth every 6 (six) hours. levalbuterol (XOPENEX) Inhale 0.63 mg 1 Box 1 06/06/2014 Active 0.63 mg/3 mL nebulizer 4 (four) times solution daily. levofloxacin (LEVAQUIN) Take 1 Tab by 2 Tab 0 06/06/2014 Active 500 mg tablet mouth every 24 (twenty-four) hours. losartan 25 mg tablet Take 25 mg by 0 Active mouth daily. ipratropium 0.02 % Inhale 2.5 mL 125 Vial 11 07/12/2017 Active nebulizer solution every 6 (six) hours as needed for Wheezing or Shortness of Breath. Nebulizer Accessories Kit Use as directed 1 Kit 11 07/13/19 18 Active doxycycline 100 mg tablet Take 1 tablet 14 tablet 0 10/26/2017 Active by mouth 2 (two) times daily. LEVEMIR FLEXTOUCH U-100 INJECT UNDER 1 09/09/2018 Active INSULN 100 unit/mL (3 mL) THE SKIN 10 injection UNITS TWICE A DAY budesonide-formoterol Inhale 2 Puffs 10.2 g 11 10/20/2018 Active 160-4.5 mcg/actuation 2 (two) times inhalerIndications: daily. Moderate COPD (chronic obstructive pulmonary disease), Cigarette nicotine dependence without complication ipratropium 17 Inhale 2 Puffs 12.9 g 11 10/20/2018 Active mcg/actuation 4 (four) times inhalerIndications: daily. Moderate COPD (chronic obstructive pulmonary disease), Cigarette nicotine dependence without complication documented as of this encounter (statuses as of 05/04/2019) Active Problems Problem Noted Date Cough 06/05/2014 Hypertension 06/05/2014 Diabetes 06/05/2014 Hyperlipidemia 06/05/2014 Depression 06/05/2014 Leg cramps 06/05/2014 COPD (chronic obstructive pulmonary disease) 5 COPD exacerbation 06/05/2014 SOB (shortness of breath) 06/04/2014 documented as of this encounter (statuses as of 05/04/2019) Social History Tobacco Use Types Packs/Day Years Used Date Current Every Day Smoker Cigarettes 1 55 Smokeless Tobacco: Never Used Alcohol Use Drinks/Week oz/Week Comments Not Asked Sex Assigned at Date Recorded Not on file Job Start Date Occupation Industry Not on file Not on file Not on file Travel History Travel Start Travel End No recent travel history available. documented as of this encounter Last Filed Vital Signs Not on filedocumented in this encounter Plan of Treatment Date Type Specialty Care Team Description 05/08/2019 Office Visit Urology Hubert Martínez MD [address] [place], [place] [address]d. [place], [place] [address] 10/26/2019 Office Visit Pulmonary Disease Nikita Rousseau DO [address] [place] [phone] Health Maintenance Due Date Last Done Comments EYE EXAM 1949 DTaP,Tdap,and Td Vaccines (1 - 1950 Tdap) FOOT EXAM 1957 Zoster Recombinant Vaccine 1989 (SHINGRIX) (1 of 2) LUNG CANCER SCREEN: Recommended 1994 for age 55-80 with 30 + pack year history Medicare Wellness Visit 2004 Osteoporosis Screening 2004 PNEUMOCOCCAL VACCINES 65+ (1 of 2 2004 - PCV13) HgA1C 12/05/2014 06/04/2014 CREATININE (SERUM) 06/12/2016 06/13/2015, 03/02/2015, 06/05/2014, Additional history exists LDL-C 06/12/2016 06/13/2015, 06/05/2014 URINE MICROALBUMIN 06/12/2016 06/13/2015 INFLUENZA VACCINE (#1) 2018 documented as of this encounter Procedures Procedure Name Priority Date/Time Associated Diagnosis Comme nts REFERRAL- Routine 04/25/2019 12:[address] MARKER REQUEST/RESPONSE documented in this encounter Results Not on filedocumented in this encounter Insurance Payer Benefit Plan / Subscriber ID Effective Phone Address T ype Group Dates [facility] [id number] 2017-Pres Medica re HEALTHCARE - HEALTHCARE ent Adv HM O MANAGED DUAL COMPLETE MEDICARE HMO TM MEDICAID OF xxxxxxxxx 2017-Pre [phone] [address] Medi caid [place] sent [id number] [place] [address] [facility] [id number] 2017-Pres Medica re HEALTHCARE - HEALTHCARE ent Adv PP O MANAGED DUAL COMPLETE MEDICARE documented as of this encounter
--- OUTSIDE RECORDS SUMMARY | 2019-07-30 11:15 | XMS REPORT | Summary of Care ---
:1940 Author Organization [address] [address] Care Team Providers Name Role Phone Pcp, Does Not Have A Primary Care Provider Reason for Visit Reason Comments New Patient Kidney Stones left (Routine) Status Reason Specialty Diagnoses / Referred By Referred To Procedures Contact Contact Closed URO-UROLOGY / Diagnoses Calculus of kidney kidney stones Chadwick Murcia Laith, MD Urology Procedures CONSULT UROLOGY NEW VISIT (FIRST TIME) [address] [place] [phone] Phone: Fax: Fax: Encounter Details Date Type Department Care Team Description 05/08/2019 Office Visit [facility] Urology- Gabby Martínez MD Calculus of kidney (Primary Dx); [address] Renal cyst, left [address] [place] [address] [address] [address] [place] [address] Allergies Active Allergy Reactions Severity Noted Date Comments Penicillins Swelling 06/04/2014 documented as of this encounter (statuses as of 05/08/2019) Medications Medication Sig Dispensed Refills Start Date [...] DAY budesonide-formoterol Inhale 2 Puffs 10.2 g 10/20/2018 Active 160-4.5 mcg/actuation 2 (two) times inhalerIndications: daily. Moderate COPD (chronic obstructive pulmonary disease), Cigarette nicotine dependence without complication ipratropium 17 Inhale 2 Puffs 12.9 g 10/20/2018 Active mcg/actuation 4 (four) times inhalerIndications: daily. Moderate COPD (chronic obstructive pulmonary disease), Cigarette nicotine dependence without complication documented as of this encounter (statuses as of 05/08/2019) Active Problems Problem Noted Date Cough 06/05/2014 Hypertension 06/05/2014 Diabetes 06/05/2014 Hyperlipidemia 06/05/2014 Depression 06/05/2014 Leg cramps 06/05/2014 COPD (chronic obstructive pulmonary disease) 5 COPD exacerbation 06/05/2014 SOB (shortness of breath) 06/04/2014 documented as of this encounter (statuses as of 05/08/2019) Social History Tobacco Use Types Packs/Day Years [...] of this encounter Last Filed Vital Signs Vital Sign Reading Time Taken Comments Blood Pressure 179/87 05/08/2019 9:50 AM INDUSTRIAL REGISTERED NURSE Pulse 66 05/08/2019 9:50 AM INDUSTRIAL REGISTERED NURSE Temperature 37.1 C (98.7 F) 05/08/2019 9:50 AM INDUSTRIAL REGISTERED NURSE Respiratory Rate 18 05/08/2019 9:50 AM INDUSTRIAL REGISTERED NURSE Oxygen Saturation - - Inhaled Oxygen Concentration - - Weight 60.6 kg (133 lb 9.6 oz) 05/08/2019 9:50 AM INDUSTRIAL REGISTERED NURSE Height - - Body Mass Index 22.93 04/27/2019 11:51 AM INDUSTRIAL REGISTERED NURSE documented in this encounter Progress Notes Hubert Martínez MD - 05/08/2019 10:00 AM CST Urology Clinic Note / History and Physical Referred by: Dr Murcia Chief Complaint: I was asked to give my opinion regarding Bowen Jo is a 79 year old female who presents with CT incidental findings of small non obstructing left renal calculi and small left renal cyst ( uncharacterized ) History of Present Illness 05/08/2019: Bowen Jo is a 79 year old female with PMHx: COPD on LTOT , Diabetes mellitus, hypertension, hyperlipidemia, PSH: Hysterectomy, FHx: Extensive family history of heart disease. Social Hx:Tobacco Current smoker 50 pack years. She presented to clinic today accompanied with her daughter, she reported having abdominal pain and on CT at OSH was found to have small non obstructing left renal calculi and small left renal cyst ( uncharacterized ) with no other gross abnormalities. The pain is in the Left upper quadrant, with no hx of flank pain ,hematuria or weight loss. No recurrent UTI H x of kidney stones in the past , passed spontaneously Histories Past Medical History: Diagnosis Date COPD (chronic obstructive pulmonary disease) Hyperlipidemia Hypertension Type II diabetes mellitus Past Surgical History: Procedure Laterality Date HYSTERECTOMY Family History Problem Relation Age of Onset Coronary Heart Disease Mother Coronary Heart Disease Father Coronary Heart Disease Sister Coronary Heart Disease Brother Social History Socioeconomic History Marital status: Spouse name: Not on file Number of children: Not on file Years of education: Not on file Highest education level: Not on file Occupational History Not on file Social Needs Financial resource strain: Not on file Food insecurity: Worry: Not on file Inability: Not on file Transportation needs: Medical: Not on file Non-medical: Not on file Tobacco Use Smoking status: Current Every Day Smoker Packs/day: 1.00 Years: 55.00 Pack years: 55.00 Types: Cigarettes Smokeless tobacco: Never Used Substance and Sexual Activity Alcohol use: Not on file Drug use: Not on file Sexual activity: Not on file Lifestyle Physical activity: Days per week: Not on file Minutes per session: Not on file Stress: Not on file Relationships Social connections: Talks on phone: Not on file Gets together: Not on file Attends temple service: Not on file Active member of club or organization: Not on file Attends meetings of clubs or organizations: Not on file Relationship status: Not on file Intimate partner violence: Fear of current or ex partner: Not on file Emotionally abused: Not on file Physically abused: Not on file Forced sexual activity: Not on file Other Topics Concern Not on file Social History Narrative Not on file Allergies Allergies Allergen Reactions Penicillins Swelling Review of Systems Constitutional: negative Eyes: negative Ears, nose, mouth, throat: negative Cardiovascular: negative Respiratory: negative Gastrointestinal: negative Genitourinary: (+) per HPI Musculoskeletal: negative Integumentary: negative Neurological: negative Psychiatric: negative Endocrine: negative Hematologic/Lymphatic: negative Allergic/Immunologic: negative, allergies listed above Physical Examination Blood pressure (!) 179/87, pulse 66, temperature 37.1 C (98.7 F), temperature source Oral, resp.rate 18, weight 60.6 kg (133 lb 9.6 oz). Constitutional: healthy, no acute distress Eyes: normal external eye, conjunctiva and sclera normal Ears, nose, mouth, throat: normocephalic, moist mucous membranes Cardiovascular: regular rate and rhythm Respiratory: respirations unlabored on room air Gastrointestinal: soft, non-distended, no pain Musculoskeletal: no clubbing, cyanosis or edema Skin: no rashes Neurologic: alert and oriented x3 Psychiatric: appropriate mood and affect Hematologic: no bruising Laboratory Per HPI Radiology No final results containing an impression from the past 30 days were found. Procedure Note None Assessment Bowen Jo is a 79 year old female with PMHx: COPD on LTOT , Diabetes mellitus, hypertension, hyperlipidemia, PSH: Hysterectomy, FHx: Extensive family history of heart disease. Social Hx:Tobacco Current smoker 50 pack years. : 1. LUQ for 4 weeks with no hx of flank pain ,hematuria or weight loss, CT at OSH was found to have small non obstructing left renal calculi and small left renal cyst ( uncharacterized ) with no other gross abnormalities. Very high risk patient, and unlikely her LUQ pain is related to the CT findings in the left kideny Plan - CT read at [facility] and further characterization of left renal cyst , will call with the result - Counseled on smoking cessation - RTC PRN Hubert Martínez MD ovana Willett - 05/08/2019 10:00 AM Blayne Jo is a 79 year old female comes to clinic independent in ambulation for new patient kidney stones. Pt comes accompanied by family member . Pt in NAD w/ pain reported 03/24. Pt preferred language is Cuban. Pt. denies fall in last 12 months. Allergies and medications reviewed and updated. [id number] [place], [place] - [address] [facility] Jovana Willett 05/08/2019 9:52 AM documented in this encounter Plan of Treatment Date Type Specialty Care Team Description 10/26/2019 Office Visit Pulmonary Disease Nikita Rousseau DO [address] [place] [address] Health Maintenance Due Date Last Done Comments [...] encounter Procedures Procedure Name Priority Date/Time Associated Comments Diagnosis POCT URINALYSIS AUTO Routine 05/08/2019 10:35 AM Calculus of k idney Results for this INDUSTRIAL REGISTERED NURSE procedure are i n the results section. documented in this encounter Results POCT URINALYSIS, INSTRUMENT (05/08/2019 10:35 AM INDUSTRIAL REGISTERED NURSE) Pathologist Sig nature POCT U SP GRAV 1.030 (A) 1.005 - 1.025 mg/dl POCT PH U 5.5 5 - 8 mg/dl POCT U LEUK EST Negative Negative - Negative POCT U NIT Negative Negative - Negative POCT U PROT 30 Negative - Negative POCT U GLU Negative Negative - Negative POCT U KETONE Negative Negative - Negative POCT U UROBILI 0.2 0.2 - 1 mg/dl POCT U BILI Negative Negative - Negative POCT U BLD Negative Negative - Negative POCT U COLOR yellow POCT U APPEAR clear Specimen Urine - URINE, CLEAN CATCH documented in this encounter Visit Diagnoses Diagnosis Calculus of kidney - Primary Renal cyst, left Unspecified congenital cystic kidney dis ease documented in this encounter Insurance Payer Benefit Plan / Subscriber ID Effective Phone Address T ype Group Dates [facility] [id number] 2017-Pres Medica re HEALTHCARE - HEALTHCARE ent Adv HM O MANAGED DUAL COMPLETE MEDICARE HMO TMHP MEDICAID OF xxxxxxxxx 2017-Pre [phone] Medi caid [place] sent [phone] [id number] [place] [address] documented as of this encounter
--- OUTSIDE RECORDS SUMMARY | 2019-07-30 11:16 | XMS REPORT | Summary of Care ---
:1939 Author Organization [facility] - [facility] Address [address] [place] [address] Care Team Providers Name Role Phone Pcp, Does Not Have A Primary Care Provider Reason for Referral MRI/CAT Scan (Routine) Status Reason Specialty Diagnoses / Referred By Referred To Procedures Contact Contact New Request Diagnostic Diagnoses Renal cyst, left Alexsandra Vargas Radiology Procedures CT ABDOMEN PELVIS WO CONTRAST A, COMPUTER OPERATIONS ANALYST [address] [place] [address] Reason for Visit Reason Comments Cyst Encounter Details Date Type Department Care Team Description 05/09/2019 Case Management [facility] Urology- Juliana Vargas la A, COMPUTER OPERATIONS ANALYST Cyst [address] [address] [place] [address] [phone] Allergies Active Allergy Reactions Severity Noted Date Comments Penicillins Swelling 06/04/2014 documented as of this encounter (statuses as of 05/09/2019) Medications Medication Sig Dispensed Refills Start Date [...] as of this encounter (statuses as of 05/09/2019) Active Problems Problem Noted Date Cough 06/05/2014 Hypertension 06/05/2014 Diabetes 06/05/2014 Hyperlipidemia 06/05/2014 Depression 06/05/2014 Leg cramps 06/05/2014 COPD (chronic obstructive pulmonary disease) 5 COPD exacerbation 06/05/2014 SOB (shortness of breath) 06/04/2014 documented as of this encounter (statuses as of 05/09/2019) Social History Tobacco Use Types Packs/Day Years [...] Team Description 10/26/2019 Office Visit Pulmonary Disease Nat Rousse[place]ria, [address] [place] [address] Name Type Priority Associated Diagnoses Order S chedule CT ABDOMEN PELVIS WO IMAGING Routine Renal cyst, left Exp ected: 05/09/2019, CONTRAST Expires: 2020 Health Maintenance Due Date Last Done Comments [...] (#1) 2018 documented as of this encounter Results Not on filedocumented in this encounter Visit Diagnoses Diagnosis Renal cyst, left - Primary Unspecified congenital cystic kidney dis ease documented in this encounter Insurance Payer Benefit Plan / Subscriber ID Effective Phone Address T ype Group Dates [facility] [id number] 2017-Pres Medica HEALTHCARE - HEALTHCARE ent Adv HM O MANAGED DUAL COMPLETE MEDICARE HMO [facility] MEDICAID OF xxxxxxxxx 2017-Pre [phone] [address] Medi caid [place] sent [phone] [id number] [place] [address] [facility] [id number] 2017-Pres Medica re HEALTHCARE - HEALTHCARE ent Adv PP O MANAGED DUAL COMPLETE MEDICARE documented as of this encounter
--- OUTSIDE RECORDS SUMMARY | 2019-07-30 11:16 | XMS REPORT | Summary of Care ---
:1939 Author Organization [address] [address] Care Team Providers Name Role Phone Pcp, Does Not Have A Primary Care Provider Reason for Visit Reason Comments New Patient Kidney Stones left (Routine) Status Reason Specialty Diagnoses / Referred By Referred To Procedures Contact Contact Closed URO-UROLOGY / Diagnoses Calculus of kidney kidney stones Chadwick Murcia Laith, MD Urology Procedures CONSULT UROLOGY NEW VISIT (FIRST TIME) [address] [place] [phone] Phone: Fax: Fax: Encounter Details Date Type Department Care Team Description 05/08/2019 Office Visit [facility] Urology- Gabby Martínez MD Calculus of kidney (Primary Dx); [address] Renal cyst, left [address] [place] [address] [address] [address] [place] [address] Allergies Active Allergy Reactions Severity [...] Comments Blood Pressure 179/87 05/08/2019 9:50 AM AUDIT MACHINE OPERATOR Pulse 66 05/08/2019 9:50 AM AUDIT MACHINE OPERATOR Temperature 37.1 C (98.7 F) 05/08/2019 9:50 AM AUDIT MACHINE OPERATOR Respiratory Rate 18 05/08/2019 9:50 AM AUDIT MACHINE OPERATOR Oxygen Saturation - - Inhaled Oxygen Concentration - - Weight 60.6 kg (133 lb 9.6 oz) 05/08/2019 9:50 AM AUDIT MACHINE OPERATOR Height - - Body Mass Index 22.93 04/27/2019 11:51 AM AUDIT MACHINE OPERATOR documented in this encounter Progress Notes Hubert [...] file Gets together: Not on file Attends christian service: Not on file Active member of [...] left kideny Plan - CT read at [facility] and further characterization of left renal cyst [...] pain reported 03/24. Pt preferred language is Venezuelan. Pt. denies fall in last 12 months. Allergies and medications reviewed and updated. [id number] [place], [place] - [address] [facility] Jovana Willett 05/08/2019 9:52 AM documented in this encounter Plan of Treatment Date Type Specialty Care Team Description 10/26/2019 Office Visit Pulmonary Disease Nikita Rousseau DO [address] [place] [address] Health Maintenance Due Date Last [...] Calculus of k idney Results for this AUDIT MACHINE OPERATOR procedure are i n the results section. documented in this encounter Results POCT URINALYSIS, INSTRUMENT (05/08/2019 10:35 AM AUDIT MACHINE OPERATOR) Pathologist Sig nature POCT U SP GRAV [...] Effective Phone Address T ype Group Dates [facility] [id number] 2017-Pres Medica re HEALTHCARE - HEALTHCARE ent Adv HM O MANAGED DUAL COMPLETE MEDICARE HMO [facility] MEDICAID OF xxxxxxxxx 2017-Pre [phone] [address] Medi caid [place] sent [id number] [place] [address] documented as of this encounter
--- OUTSIDE RECORDS SUMMARY | 2019-07-30 11:16 | XMS REPORT | Summary of Care ---
:1940 Author Organization [facility] Address [address] [place] [address] Care Team Providers Name Role Phone Pcp, Does Not Have A Primary Care Provider Reason for Visit Reason Comments Cyst Encounter Details Date Type Department Care Team Description 05/09/[address] [facility] Urology- Sam, ALISSA Pickard Cyst [place] [address] [facility] [address] [place] [address] [place] [address] [phone] Allergies Active Allergy Reactions Severity Noted Date [...] Office Visit Pulmonary Disease Nikita Rousseau DO [address] [place] [address] Name Type Priority Associated Diagnoses [...] Effective Phone Address T ype Group Dates [facility] [id number] 2017-Pres Medica re HEALTHCARE - HEALTHCARE ent Adv HM O MANAGED DUAL COMPLETE MEDICARE [facility] MEDICAID OF xxxxxxxxx 2017-Pre [phone] [address] Medi caid [place] sent [phone] [place] [address] [facility] [id number] 2017-Pres Medica re HEALTHCARE - HEALTHCARE ent Adv PP O MANAGED DUAL COMPLETE MEDICARE documented as of this encounter
--- OUTSIDE RECORDS SUMMARY | 2019-07-30 11:17 | XMS REPORT | Summary of Care ---
:1940 Author Organization [facility] Address [address] [place] [address] Care Team Providers Name Role Phone Pcp, Does Not Have A Primary Care Provider Reason for Visit Reason Comments Results Encounter Details Date Type Department Care Team Description 05/18/2019 Telephone [facility] Urology- Gabby Martínez MD Results [address] [place] [address] [address] [place] [address] [phone] Allergies Active Allergy Reactions Severity Noted Date Comments Penicillins Swelling 06/04/2014 documented as of this encounter (statuses as of 06/06/2019) Medications Medication Sig Dispensed Refills Start Date [...] as of this encounter (statuses as of 06/06/2019) Active Problems Problem Noted Date Cough 06/05/2014 Hypertension 06/05/2014 Diabetes 06/05/2014 Hyperlipidemia 06/05/2014 Depression 06/05/2014 Leg cramps 06/05/2014 COPD (chronic obstructive pulmonary disease) 5 COPD exacerbation 06/05/2014 SOB (shortness of breath) 06/04/2014 documented as of this encounter (statuses as of 06/06/2019) Social History Tobacco Use Types Packs/Day Years [...] Visit Pulmonary Disease Nikita Rousseau DO [address] [place] [phone] Health Maintenance Due Date Last Done Comments [...] Effective Phone Address T ype Group Dates [facility] [id number] 2017-Pres Medica re HEALTHCARE - HEALTHCARE ent Adv HM O MANAGED DUAL COMPLETE MEDICARE HMO TM MEDICAID OF xxxxxxxxx 2017-Pre [phone] [address] Medi caid [place] sent [phone] [id number] [place] [address] [facility] [id number] 2017-Pres Medica re HEALTHCARE - HEALTHCARE ent Adv PP O MANAGED DUAL COMPLETE MEDICARE documented as of this encounter
--- OUTSIDE RECORDS SUMMARY | 2019-07-30 11:17 | XMS REPORT | Summary of Care ---
:1940 Author Organization [facility] - Health Address [address] [place] [address] Care Team Providers Name Role Phone Pcp, Does Not Have A Primary Care Provider Encounter Details Date Type Department Care Team Description 05/08/2019 Orders Only [facility] Doctor Unassigned, No [address] [facility] [place] [address] [address] [place] [address] Allergies Active Allergy Reactions Severity Noted Date Comments Penicillins Swelling 06/04/2014 documented as of this encounter (statuses as of 05/14/2019) Medications Medication Sig Dispensed Refills Start Date [...] as of this encounter (statuses as of 05/14/2019) Active Problems Problem Noted Date Cough 06/05/2014 Hypertension 06/05/2014 Diabetes 06/05/2014 Hyperlipidemia 06/05/2014 Depression 06/05/2014 Leg cramps 06/05/2014 COPD (chronic obstructive pulmonary disease) 5 COPD exacerbation 06/05/2014 SOB (shortness of breath) 06/04/2014 documented as of this encounter (statuses as of 05/14/2019) Social History Tobacco Use Types Packs/Day Years [...] Description 10/26/2019 Office Visit Pulmonary Disease Nikita Rousseau, [address] [place] [address] Health Maintenance Due Date Last [...] Date/Time Associated Diagnosis Comme nts REFERRAL- Routine 05/08/2019 12:01 AM MONITOR TECH REQUEST/RESPONSE documented in this encounter Results Not on filedocumented in this encounter Insurance Payer Benefit Plan / Subscriber ID Effective Phone Address T ype Group Dates [facility] [id number] 2017-Pres Medica re HEALTHCARE - HEALTHCARE ent Adv HM O MANAGED DUAL COMPLETE MEDICARE O [facility] MEDICAID OF xxxxxxxxx 2017-Pre [phone] [address] B[address] Medi caid [place] sent [id number] [place] [address] [facility] [id number] 2017-Pres Medica re HEALTHCARE - HEALTHCARE ent Adv PP O MANAGED DUAL COMPLETE MEDICARE documented as of this encounter
--- OUTSIDE RECORDS SUMMARY | 2019-07-30 11:17 | XMS REPORT | Summary of Care ---
:1940 Author Organization [facility] Address [address] [place] [address] Care Team Providers Name Role Phone Pcp, Does Not Have A Primary Care Provider Reason for Referral (Routine) Status Reason Specialty Diagnoses / Procedures Referred By Lacy mcnally To Contact Contact New Request Surgery Diagnoses Calculus of gallbladder without cholecystitis without obstruction Hubert Martínez MD [place], Procedures CONSULT/REFERRAL GENERAL SURGERY [address] [place] [address] MD Gail [facility]. [address] [place] [phone] Remi 2.100 Phone: [place], [employer] [phone] Reason for Visit Reason Comments Results Encounter Details Date Type Department Care Team Description 06/07/2019 Telephone [facility] and Hubert Olson i, MD Results Clinics [address] [place] [address]. [address] [place] [address] [place] [address] Allergies Active Allergy Reactions Severity Noted Date Comments Penicillins Swelling 06/04/2014 documented as of this encounter (statuses as of 06/07/2019) Medications Medication Sig Dispensed Refills Start Date [...] as of this encounter (statuses as of 06/07/2019) Active Problems Problem Noted Date Cough 06/05/2014 Hypertension 06/05/2014 Diabetes 06/05/2014 Hyperlipidemia 06/05/2014 Depression 06/05/2014 Leg cramps 06/05/2014 COPD (chronic obstructive pulmonary disease) 5 COPD exacerbation 06/05/2014 SOB (shortness of breath) 06/04/2014 documented as of this encounter (statuses as of 06/07/2019) Social History Tobacco Use Types Packs/Day Years [...] Visit Pulmonary Disease Nikita Rousseau DO [address] [place] [address] Health Maintenance Due Date Last [...] filedocumented in this encounter Visit Diagnoses Diagnosis Calculus of gallbladder without cholecys titis without obstruction - Primary Calculus of gallbladder without mention of cholecystitis or obstruction documented in this encounter Insurance Payer Benefit Plan / Subscriber ID Effective Phone Address T e Group Dates [facility] [id number] 2017-Pres Medica re HEALTHCARE - HEALTHCARE ent Adv HM O MANAGED DUAL COMPLETE MEDICARE HMO [facility] MEDICAID OF xxxxxxxxx 2017-Pre [phone] [address] Medi caid [place] sent [phone] [place] [address] [facility] [id number] 2017-Pres Medica re HEALTHCARE - HEALTHCARE ent Adv PP O MANAGED DUAL COMPLETE MEDICARE documented as of this encounter
--- OUTSIDE RECORDS SUMMARY | 2019-07-30 11:17 | XMS REPORT | Summary of Care ---
:[address] [facility] - [facility] Address [address] [place] [address] Care Team Providers Name Role Phone Pcp, Does Not Have A Primary Care Provider Reason for Referral MRI/CAT Scan (Routine) Status Reason Specialty Diagnoses / Referred By Referred To Procedures Contact Contact New Request Diagnostic Diagnoses Renal cyst, left Gramm, Alexsandra Radiology Procedures CT ABDOMEN PELVIS WO CONTRAST A, INSTRUCTIONAL TECHNOLOGY COORDINATOR [address] [address] Reason for Visit MRI/CAT Scan (Routine) Status Reason Specialty Diagnoses / Referred By Referred To Procedures Contact Contact New Request Diagnostic Diagnoses Renal cyst, left Gramm, Alexsandra Radiology Procedures CT ABDOMEN PELVIS WO CONTRAST A, INSTRUCTIONAL TECHNOLOGY COORDINATOR [address] [address] Encounter Details Date Type Department Care Team Description 05/18/2019 Hospital Encounter [facility] Sam P sherie A, INSTRUCTIONAL TECHNOLOGY COORDINATOR Arrived [facility] alexa [address] [facility] [address] [address] [place] [address] [phone] Allergies Active Allergy Reactions Severity Noted Date Comments Penicillins Swelling 06/04/2014 documented as of this encounter (statuses as of 05/19/2019) Medications Medication Sig Dispensed Refills Start Date [...] as of this encounter (statuses as of 05/19/2019) Active Problems Problem Noted Date Cough 06/05/2014 Hypertension 06/05/2014 Diabetes 06/05/2014 Hyperlipidemia 06/05/2014 Depression 06/05/2014 Leg cramps 06/05/2014 COPD (chronic obstructive pulmonary disease) 5 COPD exacerbation 06/05/2014 SOB (shortness of breath) 06/04/2014 documented as of this encounter (statuses as of 05/19/2019) Social History Tobacco Use Types Packs/Day Years [...] 10/26/2019 Office Visit Pulmonary Disease Nikita Rousseau, [address] [place] [address] Name Type Priority Associated Diagnoses Date/Ti me CT ABDOMEN PELVIS WO IMAGING Routine Renal cyst, left 07/2019 11:11 AM SENIOR HR GENERALIST CONTRAST Name Type Priority Associated Diagnoses Order S chedule CT ABDOMEN PELVIS WO IMAGING Routine Renal cyst, left 1 O ccurrences starting CONTRAST 05/18/2019 unti l 05/18/2019 Health Maintenance Due Date Last Done Comments [...] encounter Visit Diagnoses Diagnosis Renal cyst, left Unspecified congenital cystic kidney dis ease documented in this encounter Insurance Payer Benefit Plan / Subscriber ID Effective Phone Address T ype Group Dates [facility] [id number] 2017-Pres Medica re HEALTHCARE - HEALTHCARE ent Adv HM O MANAGED DUAL COMPLETE MEDICARE HMO [facility] MEDICAID OF xxxxxxxxx 2017-Pre [phone] [address] O BOX Medi caid [place] sent [phone] [id number] [place] [address] documented as of this encounter
--- OUTSIDE RECORDS SUMMARY | 2019-07-30 11:17 | XMS REPORT | Summary of Care ---
:1940 Author Organization [facility] - [facility] Address [address] [place] [address] Care Team Providers Name Role Phone Pcp, Does Not Have A Primary Care Provider Reason for Visit Reason Comments Results Encounter Details Date Type Department Care Team Description 05/09/2019 Telephone [facility] Urology- Gabby Martínez MD Results [address] [place] [address] [address] [place] [address] [phone] Allergies Active Allergy Reactions Severity Noted Date [...] Visit Pulmonary Disease Nikita Rousseau DO [address] [place] [phone] Health Maintenance Due Date Last Done Comments [...] Effective Phone Address T ype Group Dates [facility] [id number] 2017-Pres Medica re HEALTHCARE - HEALTHCARE ent Adv HM O MANAGED DUAL COMPLETE MEDICARE HMO TM MEDICAID OF xxxxxxxxx 2017-Pre [phone] P O BOX Medi caid [place] sent [phone] [place] [address] [facility] [id number] 2017-Pres Medica re HEALTHCARE - HEALTHCARE ent Adv PP O MANAGED DUAL COMPLETE MEDICARE documented as of this encounter
--- OUTSIDE RECORDS SUMMARY | 2019-07-30 11:18 | XMS REPORT | Summary of Care ---
:1940 Author Organization [facility] Address [address] [place] [address] Care Team Providers Name Role Phone Pcp, Does Not Have A Primary Care Provider Reason for Visit Reason Comments Rx Concern/Question Encounter Details Date Type Department Care Team Description 07/10/2019 Telephone [facility] [employer] Nikita Rousseau DO Rx Concern/Question Pulmonary Clinic [facility] [address] , [address] [address] [phone] Allergies Active Allergy Reactions Severity Noted Date Comments Penicillins Swelling 06/04/2014 documented as of this encounter (statuses as of 07/13/2019) Medications Medication Sig Dispensed Refills Start Date [...] pulmonary disease), Cigarette nicotine dependence without complication Nebulizers (VIXONE Use as directed 1 Each 0 07/13/2019 Active NEBULIZER-ADULT MASK) MiscIndications: Chronic obstructive pulmonary disease, unspecified COPD type documented as of this encounter (statuses as of 07/13/2019) Active Problems Problem Noted Date Cough 06/05/2014 Hypertension 06/05/2014 Diabetes 06/05/2014 Hyperlipidemia 06/05/2014 Depression 06/05/2014 Leg cramps 06/05/2014 COPD (chronic obstructive pulmonary disease) 5 COPD exacerbation 06/05/2014 SOB (shortness of breath) 06/04/2014 documented as of this encounter (statuses as of 07/13/2019) Social History Tobacco Use Types Packs/Day Years [...] Treatment Date Type Specialty Care Team Description 08/17/2019 Office Visit Surgery Gail Bañuelos MD [address] [facility] Remi [address].100 [place] [address] [phone] 10/26/2019 Office Visit Pulmonary Disease Nikita Rousseau DO [address] [place] [phone] Health Maintenance Due Date Last Done Comments [...] filedocumented in this encounter Visit Diagnoses Diagnosis Chronic obstructive pulmonary disease, u nspecified COPD type - Primary documented in this encounter Insurance Payer Benefit Plan / Subscriber ID Effective Phone Address T ype Group Dates [facility] [id number] 2017-Pres Medica re HEALTHCARE - HEALTHCARE ent Adv HM O MANAGED DUAL COMPLETE MEDICARE HMO [facility] MEDICAID OF xxxxxxxxx 2017-Pre [phone] P O BOX Medi caid [place] sent [phone] [place] [address] [facility] [id number] 2017-Pres Medica re HEALTHCARE - HEALTHCARE ent Adv PP O MANAGED DUAL COMPLETE MEDICARE documented as of this encounter
[2019-07-30 12:00] LABS: Urine Blood 3+ (NEG); Urine Glucose NEGATIVE (NEG); Urine Protein 2+ (NEG); Urine Specific Gravity 1.025 (1.005-1.030); Urine pH 5.5 (5.0-7.0)
[2019-07-30 12:03] LABS: Urine Bacteria NONE SEEN /HPF (<20); Urine Culture Reflex Order NOT NEEDED; Urine RBC >50 /HPF (NONE SEEN)
[2019-07-30] MEDS ORDERED: levoFLOXacin 500 MG TAB ONE (12:11)
--- NOTE | 2019-07-30 12:17 | EDPHYS ---
Physician Documentation [facility] Name: Bowen Jo Age: 79 yrs Sex: Female : 1940 Arrival Date: 07/30/2019 Time: 11:13 Bed 13 Private MD: Chadwick Murcia E ED Physician Dylan Graham HPI: 07/29 11:50 This 79 yrs old Female presents to ER via Ambulatory with complaints of snw Possible UTI. 11:50 The patient presents with urinary symptoms, dysuria, frequency, urgency. Onset: The snw symptoms/episode began/occurred suddenly, 3 day(s) ago, and became persistent. Associated signs and symptoms: Pertinent negatives: fever, nausea, vomiting. Severity of symptoms: At their worst the symptoms were moderate. The patient has experienced similar episodes in the past. The patient has not recently seen a physician. Historical: - Allergies: 11:28 PENICILLINS; bp - Home Meds: 11:28 amlodipine 5 mg tab 1 tab once daily for Hypertension [Active]; bp - PMHx: 11:28 Anxiety; Arthritis; Back pain; chronic kidney disease; constipation; COPD; Dementia; bp Diabetes - NIDDM; High Cholesterol; Hypertension; insomnia; neuropathy; Pneumonia; sciatica; UTI; - Immunization history:: Adult Immunizations up to date. - Social history:: Smoking status: Patient reports the use of cigarette tobacco products, smokes one pack cigarettes per day. ROS: 11:49 Constitutional: Negative for fever, chills, and weight loss, Eyes: Negative for injury, snw pain, redness, and discharge, ENT: Negative for injury, pain, and discharge, Neck: Negative for injury, pain, and swelling, Cardiovascular: Negative for chest pain, palpitations, and edema, Respiratory: Negative for shortness of breath, cough, wheezing, and pleuritic chest pain, Abdomen/GI: Negative for abdominal pain, nausea, vomiting, diarrhea, and constipation, Back: Negative for injury and pain, MS/Extremity: Negative for injury and deformity, Skin: Negative for injury, rash, and discoloration, Neuro: Negative for headache, weakness, numbness, tingling, and seizure. 11:49 : Positive for urinary symptoms, urinary frequency, small amounts, burning with urination. Exam: 11:48 Constitutional: This is a well developed, well nourished patient who is awake, alert, snw and in no acute distress. Head/Face: Normocephalic, atraumatic. Eyes: Pupils equal round and reactive to light, extra-ocular motions intact. Lids and lashes normal. Conjunctiva and sclera are non-icteric and not injected. Cornea within normal limits. Periorbital areas with no swelling, redness, or edema. ENT: Nares patent. No nasal discharge, no septal abnormalities noted. Tympanic membranes are normal and external auditory canals are clear. Oropharynx with no redness, swelling, or masses, exudates, or evidence of obstruction, uvula midline. Mucous membranes moist. Neck: Trachea midline, no thyromegaly or masses palpated, and no cervical lymphadenopathy. Supple, full range of motion without nuchal rigidity, or vertebral point tenderness. No Meningismus. Chest/axilla: Normal chest wall appearance and motion. Nontender with no deformity. No lesions are appreciated. Cardiovascular: Regular rate and rhythm with a normal S1 and S2. No gallops, murmurs, or rubs. Normal PMI, no JVD. No pulse deficits. Abdomen/GI: Soft, non-tender, with normal bowel sounds. No distension or tympany. No guarding or rebound. No evidence of tenderness throughout. Back: No spinal tenderness. No costovertebral tenderness. Full range of motion. MS/ Extremity: Pulses equal, no cyanosis. Neurovascular intact. Full, normal range of motion. Neuro: Awake and alert, GCS 15, oriented to person, place, time, and situation. Cranial nerves II-XII grossly intact. Motor strength 5/5 in all extremities. Sensory grossly intact. Cerebellar exam normal. Normal gait. Psych: Awake, alert, with orientation to person, place and time. Behavior, mood, and affect are within normal limits. 11:48 Respiratory: Respirations: prolonged exhalation, pursed lip breathing, shallow respirations, Breath sounds: wheezing: expiratory that is mild, is scattered. 11:48 Skin: Appearance: Color: pale. Vital Signs: 11:26 BP 203 / 78; Pulse 84; Resp 19; Temp 98.7; Pulse Ox 91% on R/A; bp 12:20 BP 208 / 82; Pulse 81; Resp 16; Pulse Ox 93% on R/A; bp 12:39 BP 189 / 85; Pulse 75; Resp 16; Temp 98.5; Pulse Ox 93% ; bp MDM: 11:26 Patient medically screened. snw 11:52 Data reviewed: vital signs, nurses notes. Data interpreted: Pulse oximetry: on room air snw is 91 %. Interpretation: acceptable. Counseling: I had a detailed discussion with the patient and/or guardian regarding: the historical points, exam findings, and any diagnostic results supporting the discharge/admit diagnosis, lab results, the need for outpatient follow up, to return to the emergency department if symptoms worsen or persist or if there are any questions or concerns that arise at home. Special discussion: Based on the patient's Hx, exam, and Dx evaluation, there is no indication for emergent surgery or inpatient Tx. It is understood by the patient/guardian that if the Sx's persist or worsen they need to return immediately for re-evaluation. Based on the history and exam findings, there is no indication for further emergent testing or inpatient evaluation. I discussed with the patient/guardian the need to see the primary care provider for further evaluation of the symptoms. 07/29 11:27 Order name: Urine Culture snw 07/29 11:27 Order name: Urine Microscopic Only; Complete Time: 12:16 snw 07/29 11:27 Order name: Urine Dipstick-Ancillary (obtain specimen); Complete Time: 11:30 snw 07/29 11:39 Order name: Urine Dipstick--Ancillary (enter results); Complete Time: 12:16 tt3 Administered Medications: 12:05 Drug: LevaQUIN 500 mg Route: PO; bp 12:41 Follow up: Response: No adverse reaction bp Disposition: 12:47 Co-signature as Attending Physician, Dylan Graham MD. rn Disposition: 07/30/19 12:16 Discharged to Home. Impression: Cystitis, unspecified with hematuria. - Condition is Stable. - Discharge Instructions: Dysuria, Hematuria, Adult, Rehydration, Elderly. - Prescriptions for Levaquin 500 mg Oral Tablet - take 1 tablet by ORAL route once daily for 7 days; 7 tablet. - Medication Reconciliation Form, Thank You Letter, Antibiotic Education, Prescription Opioid Use form. - Follow up: Chadwick Murcia MD; When: 2 - 3 days; Reason: Recheck today's complaints, Continuance of care, Re-evaluation by your physician. Follow up: Emergency Department; When: As needed; Reason: Worsening of condition. Signatures: Dispatcher [employer] EDMS Bita Lynn, CIGAR MACHINE FEEDER-C CIGAR MACHINE FEEDER-Csnw Dylan Graham MD MD rn Peltier, Brian, RN RN bp Corrections: (The following items were deleted from the chart) 12:41 12:16 07/30/2019 12:16 Discharged to Home. Impression: Cystitis, unspecified with bp hematuria. Condition is Stable. Forms are Medication Reconciliation Form, Thank You Letter, Antibiotic Education, Prescription Opioid Use. Follow up: Chadwick Murcia; When: 2 - 3 days; Reason: Recheck today's complaints, Continuance of care, Re-evaluation by your physician. Follow up: Emergency Department; When: As needed; Reason: Worsening of condition. snw
--- NOTE | 2019-07-30 12:17 | ER ---
Nurse's Notes [facility] Name: Bowen Jo Age: 79 yrs Sex: Female : 1940 Arrival Date: 07/30/2019 Time: 11:13 Bed 13 Private MD: Chadwick Murcia E Diagnosis: Cystitis, unspecified with hematuria Presentation: 07/29 11:23 Chief complaint: Patient states: URINARY URGENCY AND FREQUENCY x2 DAYS. Coronavirus bp screen: Proceed with normal triage. Ebola Screen: No symptoms or risks identified at this time. 11:23 Method Of Arrival: Ambulatory bp 11:26 Initial Sepsis Screen: Does the patient meet any 2 criteria? No. Patient's initial bp sepsis screen is negative. Does the patient have a suspected source of infection? No. Patient's initial sepsis screen is negative. Risk Assessment: Do you want to hurt yourself or someone else? Patient reports no desire to harm self or others. Onset of symptoms is unknown. 11:26 Acuity: CYNTHIA 4 bp Triage Assessment: 11:28 General: Appears in no apparent distress. comfortable, Behavior is cooperative, bp appropriate for age, anxious. Pain: Denies pain. EENT: No deficits noted. Neuro: No deficits noted. Cardiovascular: No deficits noted. Respiratory: Breath sounds with crackles bilaterally. GI: No signs and/or symptoms were reported involving the gastrointestinal system. : Reports burning with urination, urgency, urinary frequency. Derm: No deficits noted. Musculoskeletal: No deficits noted. Historical: - Allergies: 11:28 PENICILLINS; bp - Home Meds: 11:28 amlodipine 5 mg tab 1 tab once daily for Hypertension [Active]; bp - PMHx: 11:28 Anxiety; Arthritis; Back pain; chronic kidney disease; constipation; COPD; Dementia; bp Diabetes - NIDDM; High Cholesterol; Hypertension; insomnia; neuropathy; Pneumonia; sciatica; UTI; - Immunization history:: Adult Immunizations up to date. - Social history:: Smoking status: Patient reports the use of cigarette tobacco products, smokes one pack cigarettes per day. Screenin:29 Abuse screen: Denies threats or abuse. Denies injuries from another. Nutritional bp screening: No deficits noted. Tuberculosis screening: No symptoms or risk factors identified. Fall Risk None identified. Assessment: 11:29 General: SEE TRIAGE NOTE. bp 12:39 Reassessment: PT D/C HOME VIA W/C WITH FAMILY, DX WITH CYSTITIS. bp Vital Signs: 11:26 BP 203 / 78; Pulse 84; Resp 19; Temp 98.7; Pulse Ox 91% on R/A; bp 12:20 BP 208 / 82; Pulse 81; Resp 16; Pulse Ox 93% on R/A; bp 12:39 BP 189 / 85; Pulse 75; Resp 16; Temp 98.5; Pulse Ox 93% ; bp ED Course: 11:13 Patient arrived in ED. ag5 11:14 Chadwick Murcia MD is Private Physician. ag5 11:16 Abad Valles, RN is Primary Nurse. bp 11:25 Bita Lynn F[facility]-C is [facility]. snw 11:26 Dylan Graham MD is Attending Physician. snw 11:27 Triage completed. bp 11:28 Arm band placed on. bp 11:29 Patient has correct armband on for positive identification. Bed in low position. Call bp light in reach. Side rails up X2. 12:16 Chadwick Murcia MD is Referral Physician. snw 12:20 No provider procedures requiring assistance completed. Patient did not have IV access bp during this emergency room visit. Administered Medications: 12:05 Drug: LevaQUIN 500 mg Route: PO; bp 12:41 Follow up: Response: No adverse reaction bp Outcome: 12:16 Discharge ordered by . snw 12:20 Discharged to home via wheelchair. bp 12:20 Condition: stable 12:20 Discharge instructions given to patient, Instructed on discharge instructions, follow up and referral plans. medication usage, Demonstrated understanding of instructions, follow-up care, medications, Prescriptions given X 1. 12:41 Patient left the ED. bp Signatures: Bita Lynn FNP-C [facility] Abad Valles, RN RN bp Vishal Dunlap ag5 Corrections: (The following items were deleted from the chart) 12:40 12:20 BP 208 / 82; Pulse 81bpm; Resp 16bpm; Pulse Ox 93% 9 lpm; bp bp
[2019-07-30 12:57] VITALS: O2SAT 93
[2019-07-30 12:59] VITALS: BP 189/85; TEMP 98.5
== END 2019-07-30 12:41 | disposition home or self-care (01) ==
LOC: ER 11:10
DX: N30.91 Cystitis, unspecified with hematuria (principal); E11.22 Type 2 diabetes mellitus with diabetic chronic kidney disease; I12.9 Hypertensive chronic kidney disease with stage 1 through stage 4 chronic kidney disease, or unspecified chronic kidney disease; N18.9 Chronic kidney disease, unspecified; F03.90 Unspecified dementia, unspecified severity, without behavioral disturbance, psychotic disturbance, mood disturbance, and anxiety; F17.210 Nicotine dependence, cigarettes, uncomplicated; Z88.0 Allergy status to penicillin
CPT/HCPCS: 81003; 81015; 87086; 87088; 99283

== ENCOUNTER 2019-12-03 21:46 | Inpatient (IN) | payer OTHER ==
--- OUTSIDE RECORDS SUMMARY | 2019-12-03 21:49 | XMS REPORT | Continuity of Care Document ---
:1940 Author Organization [employer] Care Team Providers Name Role Phone [employer] Unavailable Un available Problems Problem Status Onset Classification Date Comments Sourc e Date Reported Joint Pain, Active 06/21/2012 [facility] Localized In The Hip Lower Back Active 06/21/2012 [facility] Pain Spinal Active 06/21/2012 [facility] Stenosis Medications Medication Details Route Status Patient Ordering Order Source Instructions Provider Date No Active No Active Active [facility] Medications Physicia ns Allergies, Adverse Reactions, Alerts Substance Category Reaction Severity Reaction Status Date Comments S ource type Reported Not Known [facility] Immunizations No Data Provided for [...] Location Location Encounter Encounter Reason Attending ADM [place] Stat us Source Details Type Number For Provider Date Date Visit AUDIT [id number] 06/06 [facility] AUDIT [id number] 06/20 [facility] NEW, [id number] 07/05 06/21 [place] Provider: MERCEDES Lewis, Status: Pen, Time: 10:30 AM Procedures No Data Provided for This Section Assessment and Plan No Data Provided for This Section Plan of Care Plan of Care Date Source Orthopedics Referral 06/06/2012 06/21/2012 [facility] Routine Orthopedics Referral 06/06/2012 06/06/2012 [facility] Routine Social History No Data Provided for This Section Family History No Data Provided for This Section Advance Directives Order Name Results Value Date Source Advance Directives Advance Directives No Advance 06/21/2012 [facility] Directives available. Advance Directives Advance Directives No Advance 06/06/2012 [facility] Directives available. Functional Status No Data Provided for This Section
--- OUTSIDE RECORDS SUMMARY | 2019-12-03 21:49 | XMS REPORT | Continuity of Care Document ---
:1940 Author Organization [facility] t Address [address] [place] [address] Care Team Providers Name Role Phone Onelia LORENZO Attending Clinician Problems Condition Condition Condition Status Onset Resolution Last Treating Co mments Source Name Details Category Date Date Treatment Clinician Date Joint Problem Active 2012-06-21 Mem[facility] Pain, 00:17:14 l Localized Joint Alex n In The Hip Pain, Localized In The Hip Active 06/21/2012 [facility] Lower Back Problem Active 2012-06-21 M emoria Pain 00:17:14 l Lower [place] Back Pain Active 3 [facility] Spinal Problem Active 2012-06-21 Mem[facility] ia Stenosis 00:17:14 l Spinal Prosper Stenosis Active 3 [facility] Allergies, Adverse Reactions, Alerts Allergy Allergy Status Severity Reaction(s) Onset Inactive Treating Comm ents Source Name Type Date Date Clinician Not Not Active Memoria Known Known l Prosper Medications Ordered Filled Start Stop Current Ordering Indication Dosage Frequency Signature Comments Components Source Medication Medication Date Date Medication? Clinician (SIG) Name Name No Active Yes No Active Mem oria Medications -09 Medication l 00:17: s [place] 14 Procedures This patient has no known procedures. Plan of Care Planned Activity Planned Date Details Comments Source Future Scheduled Test 2012-06-21 00:17:14 Plan of Care [code Carl Cheng = 77884-0] Future Scheduled Test 2012-06-06 23:04:04 Plan of Care [code Carl Cheng = 78169-3] Encounters Start End Encounter Admission Attending Care Care Encounter Source Date/Time Date/Time Type Type Clinicians Facility Department ID 2019-10-31 2019-10-31 Refill Onelia SHERINE [id number] 00:00:00 00:00:00 Nikita Macdonald [id number] [place] [id number] [facility] [id number] [address] 2019-10-26 2019-10-26 Office Onelia SHERINE [id number] 09:39:56 09:59:56 Visit Nikita Macdonald [id number] [place] [id number] [facility] [phone] [address] 2012-06-20 2012-06-20 Outpatient [facility] [id number] 19:17:33 19:17:14 2012-06-06 2012-06-06 Outpatient [facility] [id number] 18:04:22 18:04:04 Results This patient has no known results.
[2019-12-03 22:04] LABS: Absolute Lymphocytes (CBC) 2.1 K/uL (0.7-4.9); Basophils % 0.4 % (0-1.3); Hematocrit 38.7 % (36.0-45.0); Lymphocytes % 24.5 % (15.3-44.8); MPV 7.9 fL (7.6-11.3); RBC Red Blood Cell Count 4.25 M/uL (3.86-4.86)
[2019-12-03] MEDS ORDERED: ONDANSETRON 4 MG/2 ML VIAL ONE (22:10)
[2019-12-03] MEDS ORDERED: MORPHINE 4 MG/ML SYR ONE (22:10)
[2019-12-03 22:11] LABS: Protime INR 0.96
--- NOTE | 2019-12-03 23:30 | ER ---
Nurse's Notes [facility] Name: Bowen Jo Age: 79 yrs Sex: Female : 1940 Arrival Date: 12/03/2019 Time: 21:49 Bed 6 Private MD: Chadwick Murcia E Diagnosis: Fall-Mechanical;Left Hip Femoral Neck Fracture Presentation: 12/02 21:50 Chief complaint: EMS states: pt was ambulating to the kitchen to get a donut, when she sg became unbalanced and fell from a standing position, landing on buttocks and left hip, pt reports pain in the left hip area. Denies head injury, denies LOC. Coronavirus screen: Client denies travel out of the [place] in the last 14 days. At this time, the client does not indicate any symptoms associated with coronavirus-19. Ebola Screen: Patient negative for fever greater than or equal to 101.5 degrees Fahrenheit, and additional compatible Ebola Virus Disease symptoms Patient denies exposure to infectious person. Patient denies travel to an Ebola-affected area in the 21 days before illness onset. No symptoms or risks identified at this time. Initial Sepsis Screen: Does the patient meet any 2 criteria? No. Patient's initial sepsis screen is negative. Does the patient have a suspected source of infection? No. Patient's initial sepsis screen is negative. Risk Assessment: Do you want to hurt yourself or someone else? Patient reports no desire to harm self or others. Onset of symptoms was December 03, 2019. Care prior to arrival: None. Mechanism of Injury: Fall from standing position. Transition of care: patient was not received from another setting of care. 21:50 Acuity: CYNTHIA 3 sg 21:50 Method Of Arrival: EMS: [facility] sg 22:04 Trauma event details: Injury occurred in the [facility], Injury occurred: at [facility] home. Injury occurred: November 2019. 23:38 Care prior to arrival: None. mg2 23:39 Mechanism of Injury: Fall from standing position. mg2 Trauma Activation: Alert Physician: ED Physician; Name: ; Notified At: ; Arrived At: Physician: General Surgeon; Name: ; Notified At: ; Arrived At: Physician: Radiology; Name: ; Notified At: ; Arrived At: Physician: Respiratory; Name: ; Notified At: ; Arrived At: Physician: Lab; Name: ; Notified At: ; Arrived At: Historical: - Allergies: 21:54 PENICILLINS; sg - PMHx: 21:54 Anxiety; Arthritis; Back pain; chronic kidney disease; constipation; COPD; Dementia; sg Diabetes - NIDDM; High Cholesterol; Hypertension; insomnia; neuropathy; Pneumonia; sciatica; UTI; - Immunization history:: Flu vaccine status is unknown. - Immunization history: Last tetanus immunization: unknown. - Social history:: Smoking status: unknown. Screenin:03 Abuse screen: Denies threats or abuse. Denies injuries from another. Nutritional mg2 screening: No deficits noted. Tuberculosis screening: No symptoms or risk factors identified. Fall risk At risk due to age, prior history of falls. 22:05 Fall Risk Fall in past 12 months (25 points). IV access (20 points). mg2 Primary Survey: 22:03 NO uncontrolled hemorrhage observed. A: Breathing/Chest: Respiratory pattern: regular, mg2 Respiratory effort: spontaneous, unlabored, Breath sounds: clear. Circulation: Skin color: pink. Disability Alert. Exposure/Environment: All clothing and personal items were removed. Forensic evidence collection is not deemed to be indicated at this time. Items placed in patient belonging bag. There is no evidence of uncontrolled external bleeding. No obvious injuries are noted at this time. A warming method has been applied: A warm blanket has been provided to the patient. 23:38 Reassessment Airway Airway Patent Breathing/Chest Respiratory pattern Regular mg2 Respiratory effort Spontaneous Unlabored Circulation Color [place] Disability Alert. Secondary Survey: 22:03 HEENT: No deficits noted. Gastrointestinal: No deficits noted. : No deficits noted. mg2 Musculoskeletal: Circulation, motion, and sensation intact. Capillary refill < 3 seconds. Assessment: 22:02 General: Appears in no apparent distress. comfortable, Behavior is calm, cooperative. mg2 Pain: Complains of pain in left hip. Neuro: Level of Consciousness is awake, alert, obeys commands, Oriented to person, place, time, situation. EENT: No signs and/or symptoms were reported regarding the EENT system. Cardiovascular: Capillary refill < 3 seconds Patient's skin is warm and dry. Respiratory: Airway is patent Respiratory effort is even, unlabored, Respiratory pattern is regular, symmetrical. GI: No signs and/or symptoms were reported involving the gastrointestinal system. : Derm: Skin is intact, is healthy with good turgor, Skin is pink, warm \T\ dry. normal. Musculoskeletal: Capillary refill < 3 seconds, Reports pain in left hip. 23:27 Reassessment: Patient and/or family updated on plan of care and expected duration. Pain sg level reassessed. Genaro SUEDE CLEANER at bedside for admission to the hospital, pt answering questions appropriately but is hard of hearing. 12/03 00:13 Reassessment: attempt to call report for pt to 215, nurse not available at this time, sg will call back when ready for report. pt updated on delay, stated understanding. 00:22 Reassessment: patient in CT now. mg2 Vital Signs: 12/02 21:50 BP 165 / 75; Pulse 82; Resp 16; Temp 97.8; Pulse Ox 95% on R/A; Weight 63.05 kg (R); sg Height 5 ft. 4 in. (162.56 cm); Pain 8/10; 23:06 BP 157 / 69; Pulse 77; Resp 18; Pulse Ox 100% on 3 lpm NC; mg2 21:50 Body Mass Index 23.86 (63.05 kg, 162.56 cm) sg Ronnie Coma Score: 22:04 Eye Response: spontaneous(4). Verbal Response: oriented(5). Motor Response: obeys mg2 commands(6). Total: 15. 23:07 Eye Response: spontaneous(4). Verbal Response: oriented(5). Motor Response: obeys mg2 commands(6). Total: 15. Trauma Score (Adult): 22:04 Eye Response: spontaneous(1); Verbal Response: oriented(1); Motor Response: obeys mg2 commands(2); Systolic BP: > 89 mm Hg(4); Respiratory Rate: 10 to 29 per min(4); Ronnie Score: 15; Trauma Score: 12 23:07 Eye Response: spontaneous(1); Verbal Response: oriented(1); Motor Response: obeys mg2 commands(2); Systolic BP: > 89 mm Hg(4); Respiratory Rate: 10 to 29 per min(4); [place] Score: 15; Trauma Score: 12 ED Course: 21:49 Patient arrived in ED. sg 21:50 Chadwick Murcia MD is Private Physician. sg 21:50 Real Bosch MD is Attending Physician[facility] 21:53 Triage completed. sg 21:54 Arm band placed on. sg 21:55 Inserted saline lock: 20 gauge in right antecubital area, using aseptic technique. mg2 Blood collected. 22:01 Rogers Powell, RN is Primary Nurse. mg2 22:03 Patient has correct armband on for positive identification. mg2 22:04 Patient maintains SpO2 saturation greater than 95% on room air. mg2 22:04 No provider procedures requiring assistance completed. mg2 22:57 Hip Left 2 View XRAY In Process Unspecified. EDMS 22:57 Pelvis XRAY In Process Unspecified. EDMS 23:03 Thermoregulation: warm blanket given to patient. mg2 23:28 Fabrizio Graham MD is Hospitalizing Provider. 7 23:37 Flores cath inserted, using sterile technique, 16 Fr., returned clear yellow urine. mg2 Patient tolerated well. Patient admitted, IV remains in place. 12/03 00:29 covid test done and sent to lab. mg2 Administered Medications: 12/02 22:01 Drug: Zofran (Ondansetron) 4 mg Route: IVP; Site: right antecubital; mg2 23:24 Follow up: Response: No adverse reaction mg2 22:02 Drug: morphine 4 mg Route: IVP; Site: right antecubital; mg2 23:25 Follow up: Response: No adverse reaction; Marked relief of symptoms; Pain is decreased mg2 Intake: 22:04 PO: 0ml; Total: 0ml. mg2 Outcome: 23:29 Decision to Hospitalize by Provider. 7 12/03 00:29 Patient's length of stay was not longer than 2 hours. mg2 00:45 Admitted to Med/surg accompanied by tech, via stretcher, room 215, with oxygen, with sg chart, Report called to Kristina COTO 00:45 Condition: stable 00:45 Discharge instructions given to patient, Instructed on the need for admit, safety practices, Demonstrated understanding of instructions. 00:56 Patient left the ED. mg2 Signatures: Dispatcher [employer] Robles Rodriguez RN RN Rogers Powell RN RN mg2 Real Bosch MD MD 7 Corrections: (The following items were deleted from the chart) 12/02 21:54 21:50 BP 165 / 75; Pulse 82bpm; Resp 16bpm; Pulse Ox 95% RA; Temp 97.8F; 65.77 kg sg Reported; Pain 8/10; sg
--- NOTE | 2019-12-03 23:30 | EDPHYS ---
Physician Documentation [facility] Name: Bowen Jo Age: 79 yrs Sex: Female : 1940 Arrival Date: 12/03/2019 Time: 21:49 Bed 6 Private MD: Chadwick Murcia E ED Physician Real Bosch HPI: 12/02 22:03 This 79 yrs old Female presents to ER via EMS with complaints of Hip Injury - mh7 Left. 22:03 The patient or guardian reports an injury. that occurred at home, sustained from a mh7 fall, while walking, 22:07 left leg is externally rotated, The patient is not able to ambulate. Patient is not mh7 able to bear weight. There is no radiation of the patient's discomfort. The patient was discovered 30 minutes after the incident. The complaints affect the left hip. Onset: The symptoms/episode began/occurred today, 1 hour(s) ago. Modifying factors: The symptoms are alleviated by nothing, the symptoms are aggravated by any movement. Associated signs and symptoms: Loss of consciousness: the patient experienced no loss of consciousness, Pertinent negatives: abdominal pain, altered mental status, anorexia, chest pain, diarrhea, dizziness, dysuria, fever, headache, incontinence, nausea, shortness of breath, vomiting, weakness. Severity of symptoms: At their worst the symptoms were moderate, earlier today, in the emergency department the symptoms are unchanged. Patient states that she tripped and fell over a box in her kitchen while walking and fell to the floor onto her left hip. She denies any symptoms prior to falling including headache, chest pain, abdominal pain, SOB, nausea, vomiting, dizziness, numbness/tingling, or weakness.. Historical: - Allergies: 21:54 PENICILLINS; sg - PMHx: 21:54 Anxiety; Arthritis; Back pain; chronic kidney disease; constipation; COPD; Dementia; sg Diabetes - NIDDM; High Cholesterol; Hypertension; insomnia; neuropathy; Pneumonia; sciatica; UTI; - Immunization history:: Flu vaccine status is unknown. - Immunization history: Last tetanus immunization: unknown. - Social history:: Smoking status: unknown. ROS: 22:07 Constitutional: Negative for fever, chills, and weight loss, Eyes: Negative for injury, mh7 pain, redness, and discharge, ENT: Negative for injury, pain, and discharge, Neck: Negative for injury, pain, and swelling, Cardiovascular: Negative for chest pain, palpitations, and edema, Respiratory: Negative for shortness of breath, cough, wheezing, and pleuritic chest pain, Abdomen/GI: Negative for abdominal pain, nausea, vomiting, diarrhea, and constipation, Back: Negative for injury and pain, : Negative for injury, bleeding, discharge, and swelling, Skin: Negative for injury, rash, and discoloration, Neuro: Negative for headache, weakness, numbness, tingling, and seizure, Psych: Negative for depression, anxiety, suicide ideation, homicidal ideation, and hallucinations, Allergy/Immunology: Negative for hives, rash, and allergies, Endocrine: Negative for neck swelling, polydipsia, polyuria, polyphagia, and marked weight changes, Hematologic/Lymphatic: Negative for swollen nodes, abnormal bleeding, and unusual bruising. Exam: 23:24 Head/Face: Normocephalic, atraumatic. Eyes: Pupils equal round and reactive to light, mh7 extra-ocular motions intact. Lids and lashes normal. Conjunctiva and sclera are non-icteric and not injected. Cornea within normal limits. Periorbital areas with no swelling, redness, or edema. ENT: Nares patent. No nasal discharge, no septal abnormalities noted. Tympanic membranes are normal and external auditory canals are clear. Oropharynx with no redness, swelling, or masses, exudates, or evidence of obstruction, uvula midline. Mucous membranes moist. Neck: Trachea midline, no thyromegaly or masses palpated, and no cervical lymphadenopathy. Supple, full range of motion without nuchal rigidity, or vertebral point tenderness. No Meningismus. Chest/axilla: Normal chest wall appearance and motion. Nontender with no deformity. No lesions are appreciated. Cardiovascular: Regular rate and rhythm with a normal S1 and S2. No gallops, murmurs, or rubs. Normal PMI, no JVD. No pulse deficits. Respiratory: Lungs have equal breath sounds bilaterally, clear to auscultation and percussion. No rales, rhonchi or wheezes noted. No increased work of breathing, no retractions or nasal flaring. Abdomen/GI: Soft, non-tender, with normal bowel sounds. No distension or tympany. No guarding or rebound. No evidence of tenderness throughout. Back: No spinal tenderness. No costovertebral tenderness. Full range of motion. 23:24 Skin: Warm, dry with normal turgor. Normal color with no rashes, no lesions, and no evidence of cellulitis. Neuro: Awake and alert, GCS 15, oriented to person, place, time, and situation. Cranial nerves II-XII grossly intact. Motor strength 5/5 in all extremities. Sensory grossly intact. Cerebellar exam normal. Normal gait. Psych: Awake, alert, with orientation to person, place and time. Behavior, mood, and affect are within normal limits. 23:24 Constitutional: The patient appears in no acute distress, alert, awake, uncomfortable. 23:24 Musculoskeletal/extremity: Extremities: noted in the left hip: pain, tenderness, ROM: limited active range of motion, in the left hip, limited passive range of motion, in the left hip, Circulation is intact in all extremities. Pulses: are normal with no appreciated deficits, Perfusion: the patient is normally perfused throughout, Perfusion: the extremity is normally perfused throughout, Sensation intact. Compartment Syndrome exam of affected extremity: is normal. no numbness, no tingling, no sensation deficit, no palor, no weak pulses, Joints: the left hip displays limited range of motion, pain at rest, tenderness, Weight bearing: is unable to bear weight, Tendon exam: specific tendon testing normal through active and passive range of motion Vital Signs: 21:50 BP 165 / 75; Pulse 82; Resp 16; Temp 97.8; Pulse Ox 95% on R/A; Weight 63.05 kg (R); sg Height 5 ft. 4 in. (162.56 cm); Pain 8/10; 23:06 BP 157 / 69; Pulse 77; Resp 18; Pulse Ox 100% on 3 lpm NC; mg2 21:50 Body Mass Index 23.86 (63.05 kg, 162.56 cm) sg Ronnie Coma Score: 22:04 Eye Response: spontaneous(4). Verbal Response: oriented(5). Motor Response: obeys mg2 commands(6). Total: 15. 23:07 Eye Response: spontaneous(4). Verbal Response: oriented(5). Motor Response: obeys mg2 commands(6). Total: 15. Trauma Score (Adult): 22:04 Eye Response: spontaneous(1); Verbal Response: oriented(1); Motor Response: obeys mg2 commands(2); Systolic BP: > 89 mm Hg(4); Respiratory Rate: 10 to 29 per min(4); Fulton Score: 15; Trauma Score: 12 23:07 Eye Response: spontaneous(1); Verbal Response: oriented(1); Motor Response: obeys mg2 commands(2); Systolic BP: > 89 mm Hg(4); Respiratory Rate: 10 to 29 per min(4); Fulton Score: 15; Trauma Score: 12 MDM: 21:[address] [facility] 23:24 Differential diagnosis: hip fracture, intertrochanteric fracture, femoral neck mh7 fracture, femoral shaft fracture. Data reviewed: vital signs, nurses notes, EMS record, old medical records, lab test result(s), CBC, electrolytes, EKG, radiologic studies, plain films. Data interpreted: Pulse oximetry: on 3L(s) per nasal canula, is 100 %. Interpretation: acceptable. Counseling: I had a detailed discussion with the patient and/or guardian regarding: the historical points, exam findings, and any diagnostic results supporting the discharge/admit diagnosis, the presence of at least one elevated blood pressure reading (>120/80) during this emergency department visit, lab results, radiology results, the need for further work-up and treatment in the hospital. Response to treatment: the patient's symptoms have mildly improved after treatment. Physician consultation: Martínez Self MD regarding patient's condition, and will see patient in inpatient room, would like admission per Dr. aFbrizio Graham MD. 12/02 21:52 Order name: Basic Metabolic Panel; Complete Time: 22:45 [facility] 12/02 21:52 Order name: CBC with Diff; Complete Time: 22:45 [facility] 12/02 21:52 Order name: Type And Screen; Complete Time: 23:18 [facility] 12/02 21:52 Order name: Protime (+inr); Complete Time: 22:45 [facility] 12/02 21:52 Order name: Ptt, Activated; Complete Time: 22:45 [facility] 12/02 23:50 Order name: COVID-19: routine surveillance [facility] 12/02 21:52 Order name: Labs collected and sent; Complete Time: 21:57 [facility] 12/02 21:58 Order name: Hip Left [address] [facility] 12/02 21:58 Order name: Pelvis XRAY [facility] 12/02 23:32 Order name: Flores; Complete Time: 23:37 12/02 23:42 Order name: Hip Left Wo Con EDTN 12/03 00:45 Order name: Urine Dipstick--Ancillary (enter results) 12/03 00:39 Order name: Urine Dipstick-Ancillary (obtain specimen); Complete Time: 00:43 sg Administered Medications: 22:01 Drug: Zofran (Ondansetron) 4 mg Route: IVP; Site: right antecubital; mg2 23:24 Follow up: Response: No adverse reaction mg2 22:02 Drug: morphine 4 mg Route: IVP; Site: right antecubital; mg2 23:25 Follow up: Response: No adverse reaction; Marked relief of symptoms; Pain is decreased mg2 Disposition: 12/03/19 23:29 Hospitalization ordered by Fabrizio Graham for Inpatient Admission. Preliminary diagnosis are Fall-Mechanical, Left Hip Femoral Neck Fracture. - Bed requested for Telemetry/MedSurg (Inpatient). - Status is Inpatient Admission. mg2 - Condition is Stable. - Problem is new. - Symptoms are unchanged. Signatures: Dispatcher [employer] EDTN Robles Rader RN RN Anay Rangel RN RN Rogers Powell RN RN [facility] Real Bosch MD MD 7 Corrections: (The following items were deleted from the chart) 23:53 23:29 Hospitalization Ordered by Fabrizio Graham MD for Inpatient Admission. Preliminary cg diagnosis is Fall-Mechanical; Left Hip Femoral Neck Fracture. Bed requested for Telemetry/MedSurg (Inpatient). Status is Inpatient Admission. Condition is Stable. Problem is new. Symptoms are unchanged. [facility] 12/03 00:56 12/02 23:53 12/03/2019 23:29 Hospitalization Ordered by Fabrizio Graham MD for Inpatient mg2 Admission. Preliminary diagnosis is Fall-Mechanical; Left Hip Femoral Neck Fracture. Bed requested for Telemetry/MedSurg (Inpatient). Status is Inpatient Admission. Condition is Stable. Problem is new. Symptoms are unchanged. cg
--- NOTE | 2019-12-03 23:57 | P.HP ---
Certification for Inpatient Patient admitted to: Inpatient With expected LOS: >2 Midnights Patient will require the following post-hospital care: Rehabilitation Practitioner: I am a practitioner with admitting privileges, knowledge of patient current condition, hospital course, and medical plan of care. Services: Services provided to patient in accordance with Admission requirements found in Title 42 Section 412.3 of the Code of Federal Regulations <Genaro Andino - Last Filed: 12/03/19 23:50> Patient History Date of Service: 12/03/19 Primary Care Provider: Dr. Murcia Reason for admission: Left femur fracture History of Present Illness: 79-year-old female with history of diabetes mellitus type 2, hypertension, hyperlipidemia, COPD on home oxygen, chronic kidney disease presents emergency department for left hip pain. Patient reports she is walking indication and tripped over a box falling on her left side. Patient was evaluated in the emergency department and found to have mildly displaced left subcapital femur fracture patient was in the emergency department and wishes to have patient admitted for further evaluation and management. When I saw the patient in the emergency department she is awake, alert, orient x3. Patient informed of plan of care and is amendable. Patient last about advance directives, states she would not like to be resuscitated. Patient does not have formal DNR in place but patient is of sound mind. - Past Medical/Surgical History Diabetic: Yes -: COPD on home oxygen -: Chronic kidney disease -: Diabetes mellitus type 2 -: Sciatica -: arthritis -: neuropathy -: hypercholesterimia -: Hypertension -: hysterectomy -: Partial cornea replacement L eye Psychosocial/ Personal History: Patient lives at home with the daughter - Family History Father -: Heart disease, Hypertension, Stroke Mother -: Heart disease, Hypertension Notes: Lupus - Social History Alcohol use: No CD- Drugs: No Caffeine use: No Place of Residence: Home <Genaro Andino - Last Filed: 12/03/19 23:50> Date of Service: 12/04/19 <Fabrizio Graham - Last Filed: 12/04/19 09:01> Allergies Penicillins Allergy (Verified 04/25/16 14:35) swelling Home Medications: Amlodipine [Norvasc*] 5 mg PO DAILY 12/04/19 Budesonide/Formoterol Fumarate [Symbicort 160-4.5 Mcg Inhaler] 2 puff IH BID 12/04/19 Duloxetine HCl 60 mg PO DAILY 12/04/19 Fenofibrate 150 mg PO BEDTIME 12/04/19 Gabapentin 300 mg PO TID 12/04/19 Insulin Detemir [Levemir Flextouch] 30 units SQ BID 12/04/19 Ipratropium Wells 1 inh IN Q4H PRN 12/04/19 Metoprolol Succinate [Toprol Xl*] 50 mg PO BID 12/04/19 Tramadol HCl [Ultram] 50 mg PO BID PRN 12/04/19 Trazodone [Desyrel*] 150 mg PO BEDTIME 12/04/19 hydroCHLOROthiazide [Hydrochlorothiazide*] 12.5 mg PO DAILY 12/04/19 Review of Systems 10-point ROS is otherwise unremarkable Musculoskeletal: As per HPI <Genaro Andino - Last Filed: 12/03/19 23:50> Physical Examination - Physical Exam General: Alert, In no apparent distress HEENT: Atraumatic, PERRLA, Mucous membr. moist/pink Neck: Supple, 2+ carotid pulse no bruit, No LAD Respiratory: Clear to auscultation bilaterally, Normal air movement Cardiovascular: Regular rate/rhythm, Normal S1 S2 Gastrointestinal: Normal bowel sounds, No tenderness Musculoskeletal: No tenderness Integumentary: No rashes Neurological: Normal speech, Normal tone, Normal affect - Studies Laboratory Data (last 24 hrs) 12/03/19 20:55: PT 11.3, INR 0.96, APTT 26.6 12/03/19 20:55: WBC 8.5, Hgb 13.1, Hct 38.7, Plt Count 215 12/03/19 20:55: Sodium 139, Potassium 4.0, BUN 19 H, Creatinine 0.99, Glucose 149 H <Genaro Andino - Last Filed: 12/03/19 23:50> - Studies Laboratory Data (last 24 hrs) 12/03/19 20:55: PT 11.3, INR 0.96, APTT 26.6 12/03/19 20:55: WBC 8.5, Hgb 13.1, Hct 38.7, Plt Count 215 12/03/19 20:55: Sodium 139, Potassium 4.0, BUN 19 H, Creatinine 0.99, Glucose 149 H <Fabrizio Graham - Last Filed: 12/04/19 09:01> Assessment and Plan - Plan Assessment Mildly displaced left subcapital femur fracture Diabetes mellitus type 2 COPD on home oxygen Hypertension Hyperlipidemia Chronic kidney disease stage 3 Plan Mildly displaced left subcapital femur fracture: Orthopedics consult in place, patient NPO after midnight. Pain and nausea medication as needed, Flores catheter in place. EKG and chest x-ray ordered, cardiology consult in place for cardiac clearance. Will hold off on DVT prophylaxis in anticipation of surgery. Appreciate further input from orthopedics. Diabetes mellitus type 2: A.c. HS Accu-Cheks scale insulin therapy. COPD on home oxygen: Continue with oxygen per nasal cannula, Dulera inhaler. P.r.n. nebulizers. Hypertension: Obtain and continue patient's home medications, patient is poor historian, cannot inform able medication she takes. Will place p.r.n. meds for now. Hyperlipidemia: Obtain and continue patient's home medications. Chronic kidney disease stage 3: Renal function stable, at baseline, continue gentle hydration. - Advance Directives Does patient have a Living Will: No Does patient have a Durable POA for Healthcare: No - Code Status/Comfort Care Code Status Assessed: Yes (DNR) Critical Care: No Time Spent Managing Pts Care (In Minutes): 55 <Genaro Andino - Last Filed: 12/03/19 23:50> Physician Review Additional Text: Plan of care discussed with Genaro Andino, and I agree with the management plan as noted above. <Fabrizio Graham - Last Filed: 12/04/19 09:01>
[2019-12-04 01:07] LABS: Urine Blood NEGATIVE (NEG); Urine Glucose NEGATIVE (NEG); Urine Protein 2+ (NEG); Urine Specific Gravity 1.025 (1.005-1.030); Urine pH 5.5 (5.0-7.0)
[2019-12-04 01:16] VITALS: BMI 23.6
[2019-12-04] MEDS ORDERED: HYDRALAZINE HCL 20 MG/ML VIAL IV PRN (01:19)
[2019-12-04] MEDS ORDERED: ONDANSETRON 4 MG/2 ML VIAL IV PRN (01:19)
[2019-12-04] MEDS ORDERED: IPRATROPIUM BROM 0.5MG/2.5ML NEB PRN ×2 (01:19→15:00)
[2019-12-04] MEDS ORDERED: ALBUTEROL INHALER 60 PUFF/8 GM IH PRN (01:19)
[2019-12-04] MEDS: NA CHLORIDE 0.9% 1,000 ML IV SCH ×3 (01:59→21:54)
[2019-12-04 04:40] LABS: Absolute Lymphocytes (CBC) 1.4 K/uL (0.7-4.9); Basophils % 0.2 % (0-1.3); Hematocrit 36.5 % (36.0-45.0); Lymphocytes % 11.5 % (15.3-44.8); MPV 8.2 fL (7.6-11.3); RBC Red Blood Cell Count 3.99 M/uL (3.86-4.86)
[2019-12-04 04:50] LABS: BUN Blood Urea Nitrogen 21 mg/dL (7-18); Bicarbonate 33 mmol/L (21-32); Glucose Level 159 mg/dL (74-106); Potassium 4.5 mmol/L (3.5-5.1); Sodium Level 138 mmol/L (136-145); Troponin I < 0.02 ng/mL (0.0-0.045)
[2019-12-04] MEDS: MORPHINE 2 MG/ML SYR IV PRN (05:44)
[2019-12-04] MEDS: INSULIN -REGULAR HUMAN 50 UNIT/0.5 ML ML SQ SCH ×4 (07:30→21:00)
[2019-12-04] MEDS: FAMOTIDINE 20 MG/2 ML VIAL IV SCH (07:47)
--- NOTE | 2019-12-04 08:31 | RAD REPORT ---
EXAM DESCRIPTION: RAD - Chest Single View - 12/04/2019 2:26 am CLINICAL HISTORY: Surgery clearance Chest pain. COMPARISON: Chest Pa And Lat (2 Views) dated 09/09/2018; Chest Single View dated 09/08/2018; Chest Pa And Lat (2 Views) dated 11/14/2017; Chest Single View dated 11/13/2017 FINDINGS: Portable technique limits examination quality. A 2-3 cm rounded mass is present in the right upper lobe, new since comparative chest radiograph date d 09/09/2018. The heart is normal in size. No displaced fractures.CT chest is recommended for follow- up.
[2019-12-04] MEDS: DULERA 100/5 (MOMETASONE/FORMOTEROL) INHALER IH SCH ×2 (09:00→21:40)
--- NOTE | 2019-12-04 09:03 | P.PN ---
Subjective Date of Service: 12/04/19 Primary Care Provider: Dr. Murcia Chief Complaint: Left femur fracture Subjective: No new changes (Reports feeling has pain if she moves, denies chest pain, shortness of breath, no new numbness or tingling) Physical Examination - Vital Signs Temperature: 97.8 F Blood Pressure: 186/76 Pulse: 85 Respirations: 18 Pulse Ox (%): 90 - Physical Exam General: Alert, In no apparent distress HEENT: Sclerae nonicteric Neck: Supple, No LAD Respiratory: Clear to auscultation bilaterally, Normal air movement Cardiovascular: Regular rate/rhythm, Normal S1 S2 Gastrointestinal: Soft and benign, Non-distended, No tenderness Musculoskeletal: Other (Left hip pain with movement) Integumentary: Other (No swelling of left lower extremity, no hematoma) Neurological: Normal speech, Sensation intact (Left lower extremity), Normal affect - Studies Laboratory Data (last 24 hrs) 12/03/19 20:55: PT 11.3, INR 0.96, APTT 26.6 12/03/19 20:55: WBC 8.5, Hgb 13.1, Hct 38.7, Plt Count 215 12/03/19 20:55: Sodium 139, Potassium 4.0, BUN 19 H, Creatinine 0.99, Glucose 149 H Assessment & Plan Physician Review Additional Text: Mildly displaced left subcapital femur fracture Diabetes mellitus type 2 COPD on home oxygen Hypertension Hyperlipidemia Chronic kidney disease stage 3 Plan Mildly displaced left subcapital femur fracture: Orthopedics consulted, NPO this morning Pain and nausea medication as needed, Flores catheter in place. Cardiology consulted in place for cardiac clearance. Hold DVT prophylaxis in anticipation of surgery Diabetes mellitus type 2: A.c. HS Accu-Cheks scale insulin therapy. Will review glucose, and restart some basal insulin once tolerating p.o. COPD on home oxygen: Stable, no acute exacerbation. Continue with oxygen per nasal cannula, Dulera inhaler. P.r.n. nebulizers. Hypertension: -restart in stepwise manner postoperatively, metoprolol and Norvasc, will hold hydrochlorothiazide and re-evaluate blood pressure postoperatively Hyperlipidemia: continue patient's home medications. Chronic kidney disease stage 3: Renal function stable, at baseline, continue gentle hydration. Anxiety/depression/insomnia- continue home to duloxetine and PRN trazodone Dispo: pending ortho eval / OR Patient is very hard of hearing Patient's family at bedside, updated. Open to inpatient rehab after surgery Time Spent Managing Pts Care (In Minutes): 35
[2019-12-04] MEDS ORDERED: TRAZODONE 150 MG TAB PO PRN (09:11)
[2019-12-04] MEDS ORDERED: NA CIT/CITRIC AC 30 ML ORAL UDC ONE (10:43)
[2019-12-04] MEDS ORDERED: TRANEXAMIC ACID 1,000 MG in NA CHLORIDE 0.9% 50 ML IV ONE (10:45)
[2019-12-04] MEDS ORDERED: CLINDAMYCIN 600MG/D5W 600 MG/50 ML BAG IV ONE (10:45)
[2019-12-04] MEDS ORDERED: propofoL 200 MG/20 ML VIAL IV ONE (10:46)
[2019-12-04] MEDS ORDERED: ROCURONIUM 50 MG/5 ML VIAL IV ONE (10:46)
[2019-12-04] MEDS ORDERED: FENTANYL CITR 100 MCG/2 ML ONE ×2 (10:46→12:54)
[2019-12-04] MEDS ORDERED: LIDOCAINE 1% MPF 5 ML VIAL ONE (10:46)
[2019-12-04] MEDS ORDERED: HYDROCORTISONE SUC 250 MG INJ ONE (11:38)
[2019-12-04] MEDS ORDERED: NA CHLORIDE 0.9% 1,000 ML ONE (12:26)
[2019-12-04] MEDS ORDERED: KETOROLAC 30 MG/ML INJ ONE (13:39)
--- NOTE | 2019-12-04 13:58 | P.BOP ---
Preoperative diagnosis: left femoral neck fracture Postoperative diagnosis: same Primary procedure: left hip hemiarthroplasty Food Expeditor: NONE,NONE Estimated blood loss: 200 cc Specimen: left femoral head Findings: see dictaction Anesthesia: General Complications: None Drain(s): Urinary catheter Implants: Biomet 7 Fracture stem, 46 mm bipolar shell, 28mm -6 mm head Fluids & blood products: per anesthesia record Transferred to: Recovery Room Condition: Good
[2019-12-04] MEDS: GABAPENTIN 300 MG CAP PO SCH ×2 (14:00→21:41)
[2019-12-04] MEDS ORDERED: DOCUSATE NA 100 MG CAP PO PRN (14:08)
[2019-12-04 14:26] LABS: Hematocrit 34.6 % (36.0-45.0)
[2019-12-04] MEDS ORDERED: ONDANSETRON 4 MG/2 ML VIAL ONE (14:39)
--- NOTE | 2019-12-04 14:55 | RAD REPORT ---
EXAM DESCRIPTION: Hip Left Wo Con CLINICAL HISTORY: 79 years ,Female ,pain COMPARISON: X-ray left hip study from earlier in the day. TECHNIQUE: Contiguous axial images obtained through the left hip without IV contrast. Coronal and sa gittal reformatted images obtained. This exam was performed according to our department optimization program which includes automated exp osure control, adjustment of the mA and/or kv according to patient size and/or use of iterative recon struction technique. FINDINGS: Atherosclerotic calcifications. Flores catheter in urinary bladder. There are left femoral neck fractures with mild superior and lateral displacement of the femur shaft with respect to the femur neck. There is also a fracture through the inferior and medial aspect of th e left femur head. The femur head is not dislocated. There are nondisplaced fractures at the medial and mid aspects of the left superior pubic ramus. Ther e is a nondisplaced fracture involving the medial aspect of the inferior pubic ramus. There is a small amount of hematoma in the soft tissues lateral to the left hip. 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 IMPRESSION: There are displaced left femoral neck fractures. There is a fracture through the inferior and medial aspect of the left femur head. There are nondisplaced fractures of the superior and inferior pubic rami. 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 Electronically signed by: Kyree Still MD 12/04/2019 12:56 AM CDT Due to temporary technical issues with the PACS/Fluency reporting system, reports are being signed by the in house radiologist without review as a courtesy to ensure prompt reporting. The interpreting r adiologist is fully responsible for the content of the report.
--- NOTE | 2019-12-04 14:59 | RAD REPORT ---
EXAM DESCRIPTION: Pelvis CLINICAL HISTORY: TRAUMA COMPARISON: None. FINDINGS: Single view of the pelvis. Acute mildly displaced likely subcapital fracture of the left f emoral neck. Atherosclerotic vascular calcification. Osteopenia. Mild bilateral hip joint space narro wing. Degenerative change of the visualized spine. IMPRESSION: 1. Acute mildly displaced likely subcapital fracture of the left femoral neck. Electronically signed by: Daniel Franklin 12/03/2019 11:16 PM CDT Due to temporary technical issues with the PACS/Fluency reporting system, reports are being signed by the in house radiologist without review as a courtesy to ensure prompt reporting. The interpreting r adiologist is fully responsible for the content of the report.
--- NOTE | 2019-12-04 15:01 | RAD REPORT ---
EXAM DESCRIPTION: Hip Left 2 View CLINICAL HISTORY: Trauma COMPARISON: None. FINDINGS: 2 views of the left hip. Acute mildly displaced likely subcapital fracture of the left fem oral neck. Atherosclerotic vascular calcification. Osteopenia. Mild left hip joint space narrowing. D egenerative change of the visualized spine. IMPRESSION: 1. Acute mildly displaced likely subcapital fracture of the left femoral neck. Electronically signed by: Daniel Franklin 12/03/2019 11:18 PM CDT Due to temporary technical issues with the PACS/Fluency reporting system, reports are being signed by the in house radiologist without review as a courtesy to ensure prompt reporting. The interpreting r adiologist is fully responsible for the content of the report.
--- NOTE | 2019-12-04 15:34 | RAD REPORT ---
EXAM DESCRIPTION: RAD - Hip Left 2 View - 12/04/2019 2:44 pm CLINICAL HISTORY: post op COMPARISON: Hip Left 2 View dated 12/03/2019; Hip Left 2 View dated 09/04/2016 FINDINGS: AP and cross-table lateral postoperative images obtained. Bipolar prosthesis has been placed. Hardware is in good position. No suspicious or unexpected finding.
[2019-12-04] MEDS: CLINDAMYCIN INJ 600 MG in NA CHLORIDE 0.9% 50 ML IV SCH (17:51)
[2019-12-04] MEDS ORDERED: HOME MED 1 EA UNK (Budesonide/Formoterol Fumarate [Symbicort 160-4.5 Mcg Inhaler] 2 PUFF) IH SCH (21:00)
--- NOTE | 2019-12-04 21:39 | CON ---
Date of Consultation: 12/04/2019 Reason For Consultation: Left hip pain. History Of Present Illness: Ms. Jo is an 79-year-old female who presented to the hospital yesterd ay after sustaining a fall onto her left side with subsequent pain and inability to bear weight. X-r ays emergency room demonstrated a displaced left femoral neck fracture. Prior to the fall the patien t mobilized with the use of a wheelchair and limited ambulation with a walker. She denies any muscul oskeletal complaints at this time. 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 Past Medical History: Includes COPD, chronic kidney disease, diabetes, hypercholesterolemia, hyperte nsion. Past Surgical History: Includes hysterectomy, corneal replacement. Social History: She lives at home with her daughter. She recently quit smoking. No alcohol use. Family History: Reviewed and noncontributory. Allergies: TO PENICILLIN. Home Medications: Norvasc, Symbicort, duloxetine, fenofibric, gabapentin, Levemir, ipratropium, meto prolol, tramadol, trazodone, hydrochlorothiazide. Physical Examination: General: No apparent distress. HEENT: Normocephalic, atraumatic. Neck: Supple. Cardiovascular: Brisk cap refill to all digits. Chest: Nonlabored breathing. Abdomen: Nondistended. Psychiatric: Response to exam. Musculoskeletal: Left lower extremity pain. Range of motion to the left hip. Tenderness to palpati on of the left hip. No pain. No tenderness over the knee, tibia or foot. Positive firing of EHL, F HL. Sensation grossly intact to dorsal and plantar surface of her left foot. No pain with range of motion of her right hip, knee, or ankle. Bilateral upper extremities functional range of motion with out pain. No gross deformities. No obvious dislocations. X-rays: X-rays of the left hip and CAT scan demonstrate a displaced left femoral neck fracture. Assessment And Plan: Ms. Jo is an 79-year-old female with a left displaced femoral neck fracture. Discussed with the patient and the family her diagnosis as well as risks and benefits associated wi th operative and nonoperative treatment. She expressed understanding and elected to proceed with ope rative treatment to proceed with left hip hemiarthroplasty given her displaced fracture pattern and s hould be managed medically by the hospitalist service. Physical Therapy will be consulted tomorrow t o aid with mobilization. CV/MODL Voice ID: [id number] Report ID: [id number]
[2019-12-04] MEDS: FENOFIBRATE 160 MG TAB PO SCH (21:41)
[2019-12-04] MEDS: METOPROLOL XL 50 MG TAB PO SCH (21:41)
[2019-12-04] MEDS: TRAMADOL HCL 50 MG TAB PO PRN (21:53)
--- NOTE | 2019-12-05 00:39 | OP ---
Date of Procedure: 12/04/2019 Surgeon: Martínez Self MD Preoperative Diagnosis: Left femoral neck fracture. Postoperative Diagnosis: Left femoral neck fracture. Procedure Performed: Left hip hemiarthroplasty. Anesthesia: General endotracheal. Fluids: Per Anesthesia record. Estimated Blood Loss: 200 cc. Complications: None. Implants: A 7 mm Biomet Echo fracture stem, cemented, a size 46 mm bipolar shell and a 28 x -6 mm head. Specimens: Left femoral head. Indication For Procedure: Ms. Jo is an 79-year-old female, who presented to the ER yesterday after sustaining a fall onto her left side with subsequent pain and inability to bear weight. Prior to the fall, the patient mobilized minimally with a walker. She reports pain in her left hip at this time, but denies any other musculoskeletal complaints. I discussed with the patient and her family risks and benefits associated with operative and nonoperative treatment. Given her fracture pattern, I recommended left hip hemiarthroplasty. They expressed understanding and elected to proceed with operative treatment. Description Of Procedure: After informed consent was obtained, the patient was identified in the preoperative holding area. The left lower extremity was marked. The patient was then taken back to the operating room, transferred to the operative table in a supine fashion, and placed under general endotracheal anesthesia. She was then transferred to operating table in a supine fashion and placed in the right lateral decubitus position with her extremities well padded. The left lower extremity was then prepped and draped in usual sterile fashion. A time-out was initiated. The correct patient and procedure were confirmed and identified. The patient did receive her preoperative prophylactic antibiotics. Approximately, a 15 cm curvilinear incision was made, centered over the greater trochanter with a posterior approach to the left hip. Dissection was then taken down to the tensor fascia diana, which was split and divided both proximally and distally in line with the incision. Charnley retractor was then placed. Blunt dissection was then taken down to the short external rotators, which were tagged with #5 Ethibond and released off the greater trochanter. A T-shaped capsulotomy was then performed and the capsule was then tagged with #5 Ethibond sutures. A corkscrew was then used to remove the femoral head. It was measured and a size 46 head shell was selected. A 46 mm trial head was then placed and there was good overall fit within the acetabulum. The trial was then removed. Next, attention was taken down to the proximal femur. First, cookie cutter followed by canal finder and lateralizer was placed down the femoral canal in an antegrade fashion, from size 7 mm reamer up to a size 10 mm reamer were placed. There was overall good chatter at 10 mm, so the 11 could not be passed. The hip was then broached from a size 7 to a size 10 mm broach. The calcar planer was then used to smooth out the femoral neck cut. A 46 mm shell and a standard neck was placed. It was overall mild. It was a little long at that point and we made a nice under her head and there was good overall leg length and stability of the left hip. Trial components were then removed. The wound was then irrigated thoroughly with normal saline using pulse lavage as well as the femoral canal. Ball probe was then placed and the canal was brushed and suction was placed within the femoral canal for preparation of cement. Stem was then prepared on the back table and using a cement gun, the cement was brought down to the femoral canal and the prosthesis was placed. The cement was hardened. Excess cement was removed using a [place] elevator. A 46 mm shell and 28 x -6 mm head was then placed. There was good overall leg length as well as the stability of the left hip. The wound was then again irrigated thoroughly with normal saline. The capsule was then approximated using #5 Ethibond and external rotators were then tacked back to the greater trochanter using a drill and suture passer and tied over a bony bridge. Wounds were again irrigated with pulse lavage. The tensor fascia diana was approximated using a 0 Vicryl. Subcutaneous tissue was approximated using a 2-0 Vicryl. Skin was approximated using boris. Sterile dressings were applied. The patient was placed in an abduction pillow, awakened, and transferred back in stable condition. Postoperative Plan: She will be weightbearing as tolerated. Physical Therapy will be consulted to aid with mobilization with posterior hip precautions. CV/MODL Voice ID: [id number] Report ID: [id number] CHAYA
[2019-12-05] MEDS: CLINDAMYCIN INJ 600 MG in NA CHLORIDE 0.9% 50 ML IV SCH ×2 (00:44→05:25)
[2019-12-05] MEDS: MORPHINE 2 MG/ML SYR IV PRN ×2 (00:50→14:22)
[2019-12-05 04:22] LABS: Absolute Lymphocytes (CBC) 1.5 K/uL (0.7-4.9); Basophils % 0.4 % (0-1.3); Hematocrit 29.9 % (36.0-45.0); Lymphocytes % 18.8 % (15.3-44.8); MPV 8.1 fL (7.6-11.3); RBC Red Blood Cell Count 3.27 M/uL (3.86-4.86)
[2019-12-05 04:40] LABS: Potassium 4.5 mmol/L (3.5-5.1)
[2019-12-05] MEDS: INSULIN -REGULAR HUMAN 50 UNIT/0.5 ML ML SQ SCH ×4 (08:40→21:00)
[2019-12-05] MEDS: AMLODIPINE 5 MG TAB PO SCH (08:41)
[2019-12-05] MEDS: METOPROLOL XL 50 MG TAB PO SCH ×2 (08:41→21:21)
[2019-12-05] MEDS: GABAPENTIN 300 MG CAP PO SCH ×3 (08:41→21:22)
[2019-12-05] MEDS: DULOXETINE 30 MG CAP PO SCH (08:41)
[2019-12-05] MEDS: FAMOTIDINE 20 MG/2 ML VIAL IV SCH (08:42)
[2019-12-05] MEDS: DULERA 100/5 (MOMETASONE/FORMOTEROL) INHALER IH SCH ×2 (08:42→21:22)
[2019-12-05] MEDS: ENOXAPARIN 40 MG/0.4 ML SQ SCH (08:42)
--- NOTE | 2019-12-05 14:33 | P.PN ---
Subjective Date of Service: 12/05/19 Primary Care Provider: Dr. Murcia Chief Complaint: Left femur fracture Patient has no new complaint today. No issues overnight. Physical Examination - Vital Signs Temperature: 98.0 F Blood Pressure: 145/66 Pulse: 103 Respirations: 20 Pulse Ox (%): 91 - Physical Exam General: In no apparent distress, Other (Awake) Neck: Supple Respiratory: Clear to auscultation bilaterally, Normal air movement Cardiovascular: No edema, Regular rate/rhythm, Normal S1 S2 Gastrointestinal: Normal bowel sounds, Soft and benign, No tenderness Integumentary: No rashes Neurological: Other (Nonfocal) Assessment And Plan Physician Review Additional Text: Mildly displaced left subcapital femur fracture Diabetes mellitus type 2 COPD on home oxygen Hypertension Hyperlipidemia Chronic kidney disease stage 3 Plan Displaced left subcapital femur fracture: Status post hemiarthroplasty Flores catheter in place. Dc Flores catheter once patient begin mobilizing. DVT prophylaxis. Diabetes mellitus type 2: A.c. HS Accu-Cheks scale insulin therapy. Resume Lantus insulin at 20 units daily. COPD on home oxygen: Stable, no acute exacerbation. Continue with oxygen per nasal cannula, Dulera inhaler. P.r.n. nebulizers. Hypertension: -metoprolol and Norvasc, resume hydrochlorothiazide. Hyperlipidemia: continue patient's home medications. Chronic kidney disease stage 3: Renal function stable, at baseline. Discontinue IV fluid. Anxiety/depression/insomnia- continue home to duloxetine and PRN trazodone Patient's family at bedside, updated. Patient plan for skilled rehab placement.
--- NOTE | 2019-12-05 15:37 | P.PN ---
Subjective Date of Service: 12/05/19 Primary Care Provider: Dr. Murcia Chief Complaint: s/p left hip hemiarthroplasty pain controlled Physical Examination - Vital Signs Temperature: 98.0 F Blood Pressure: 145/66 Pulse: 103 Respirations: 20 Pulse Ox (%): 91 - Physical Exam General: Alert, In no apparent distress Musculoskeletal: Other (LLE: dressing c/d/i; +EHL/FHL/GSC/TA; sensation grossly intact distally) Assessment And Plan - Plan Bowen is an 79 yo female s/p left hip hemiarthroplasty POD#1 -PT to mobilize; WBAT LLE with posterior hip precautions -acute expected postoperative blood loss anemia; continue to monitor h/h -lovenox for DVT prophylaxis -likely d/c to snf once approved
[2019-12-05] MEDS ORDERED: IPRATROPIUM BROM 0.5MG/2.5ML NEB STA (16:00)
[2019-12-05] MEDS: IPRATROPIUM BROM 0.5MG/2.5ML NEB SCH ×2 (16:00→20:12)
[2019-12-05] MEDS ORDERED: ALBUTEROL 2.5 MG/3 ML NEB SOL ONE (16:09)
[2019-12-05] MEDS ORDERED: IPRATROPIUM BROM 0.5MG/2.5ML ONE (16:09)
--- NOTE | 2019-12-05 16:29 | RAD REPORT ---
EXAM DESCRIPTION: RAD - Chest Single View - 12/05/2019 4:22 pm CLINICAL HISTORY: shortness of breath Chest pain. COMPARISON: Chest Single View dated 12/04/2019; Chest Pa And Lat (2 Views) dated 09/09/2018; Chest Sin gle View dated 09/08/2018; Chest Pa And Lat (2 Views) dated 11/14/2017; Hip Left Wo Con dated 12/03/2019 FINDINGS: Portable technique limits examination quality. There continues to be a 2-3 cm mass in the right upper lobe noted. This is partially obscured by kathe ent's head position and mask currently. CT chest would be recommended. Opacities present in left lung base which may represent aspiration pneumonia or atelectasis. The heart is mildly prominent. IMPRESSION: Moderate opacity in the left lung base may represent aspiration pneumonia or atelectasis . 2-3 cm rounded mass lesion in the right upper lobe again noted, appearing partially obscured by the p atient's head position and mask. Recommend followup CT chest assessment for further workup.
[2019-12-05] MEDS ORDERED: ALBUTEROL 2.5 MG/3 ML NEB SOL NEB ONE (17:00)
[2019-12-05] MEDS: hydroCHLOROthiazide 12.5 MG CAP PO SCH (17:01)
[2019-12-05] MEDS: NA CHLORIDE 0.9% 1,000 ML IV SCH ×2 (17:19→22:51)
[2019-12-05 18:00] LABS: Arterial Blood Carboxyhemoglob 1.4 % (0-1.5); Blood Gas Oxyhemoglobin 94.1 % (94-97); Blood O2 Saturation 96.4 % (92-98.5)
--- NOTE | 2019-12-05 19:03 | RAD REPORT ---
EXAM DESCRIPTION: CT - Chest For Pe Angio - 12/05/2019 6:14 pm CLINICAL HISTORY: Chest pain. Hypoxia, lung mass COMPARISON: Thorax Wo Con dated 03/29/2017 TECHNIQUE: CT angiogram of the pulmonary arteries was performed with MIP. All CT scans are performed using dose optimization technique as appropriate and may include automated exposure control or mA/KV adjustment according to patient size. FINDINGS: No evidence of pulmonary thromboembolism. No acute aortic finding demonstrated. Mild aortic atherosclerosis. 4.2 x 3.4 cm mass in the right upper lobe is present most compatible with neoplasia. The mass is a ne w finding compared to 03/29/2017 prior study. Elsewhere, mild bibasilar lung opacities are present salvador ggesting atelectasis. Small bilateral pleural effusions. No concerning bony finding. IMPRESSION: No evidence of pulmonary thromboembolism. 4.2 x 3.4 cm right upper lobe mass likely representing lung malignancy.
[2019-12-05] MEDS: ENSURE SURGERY 237 ML CAN PO SCH (21:00)
[2019-12-05] MEDS: FENOFIBRATE 160 MG TAB PO SCH (21:21)
[2019-12-06] MEDS: IPRATROPIUM BROM 0.5MG/2.5ML NEB SCH ×4 (01:07→20:55)
[2019-12-06] MEDS: TRAMADOL HCL 50 MG TAB PO PRN (04:12)
[2019-12-06 06:16] LABS: Hematocrit 28.3 % (36.0-45.0)
[2019-12-06] MEDS: NA CHLORIDE 0.9% 1,000 ML IV SCH ×2 (06:39→20:26)
[2019-12-06] MEDS: INSULIN -REGULAR HUMAN 50 UNIT/0.5 ML ML SQ SCH ×4 (07:30→20:25)
[2019-12-06] MEDS: DULERA 100/5 (MOMETASONE/FORMOTEROL) INHALER IH SCH ×2 (09:16→20:40)
[2019-12-06] MEDS: hydroCHLOROthiazide 12.5 MG CAP PO SCH (09:18)
[2019-12-06] MEDS: DULOXETINE 30 MG CAP PO SCH (09:18)
[2019-12-06] MEDS: METOPROLOL XL 50 MG TAB PO SCH ×2 (09:18→20:25)
[2019-12-06] MEDS: AMLODIPINE 5 MG TAB PO SCH (09:19)
[2019-12-06] MEDS: ENSURE SURGERY 237 ML CAN PO SCH ×2 (09:19→20:26)
[2019-12-06] MEDS: GABAPENTIN 300 MG CAP PO SCH ×3 (09:19→20:25)
[2019-12-06] MEDS: ENOXAPARIN 40 MG/0.4 ML SQ SCH (09:19)
[2019-12-06] MEDS: FAMOTIDINE 20 MG/2 ML VIAL IV SCH (09:19)
--- NOTE | 2019-12-06 10:03 | P.PN ---
Subjective Date of Service: 12/06/19 Primary Care Provider: Dr. Murcia Chief Complaint: s/p left hip hemiarthroplasty Subjective: Working w/ PT pain controlled Physical Examination - Vital Signs Temperature: 97.9 F Blood Pressure: 169/83 Pulse: 104 Respirations: 20 Pulse Ox (%): 96 - Physical Exam General: Alert, In no apparent distress Musculoskeletal: Other (LLE: dressing c/d/i: +EHL/FHL/GSC/TA; sensation grossly intact distally) Assessment And Plan - Plan Bowen is an 79 yo female s/p left hip hemiarthroplasty POD#2 -PT to mobilize; WBAT LLE with posterior hip precautions -acute expected postoperative blood loss anemia; continue to monitor h/h -lovenox for DVT prophylaxis -patient with some hypoxia yesterday; CT chest negative for PE but demonstrated lung mass -hospitalist service for medical management
--- NOTE | 2019-12-06 11:37 | P.PN ---
Subjective Date of Service: 12/06/19 Primary Care Provider: Dr. Murcia Chief Complaint: s/p left hip hemiarthroplasty Patient developed shortness of breath and became hypoxic yesterday. Arterial blood gas demonstrated some CO2 retention. Family reports history of severe COPD and chronic respiratory failure. Patient became confused. She was placed on BiPAP and used BiPAP all night. This morning patient is tolerating oxygen by nasal cannula, awake, tolerated breakfast. CTA thorax showed no PE but demonstrated right upper lobe mass suspicious for malignancy. Physical Examination - Vital Signs Temperature: 97.9 F Blood Pressure: 169/83 Pulse: 104 Respirations: 20 Pulse Ox (%): 96 - Physical Exam General: Confused, Other (Awake,) HEENT: Mucous membr. moist/pink Neck: Supple Respiratory: Diminished, Expiratory wheezes (Mild expiratory wheezes), Other Cardiovascular: Normal S1 S2, Other (Tachycardia) Gastrointestinal: Normal bowel sounds, Soft and benign, No tenderness Integumentary: No rashes Neurological: Other (Confused.) Assessment And Plan Physician Review Additional Text: Mildly displaced left subcapital femur fracture Diabetes mellitus type 2 COPD exacerbation Hypertension Hyperlipidemia Chronic kidney disease stage 3 Acute on chronic respiratory failure with hypoxia and hypercapnia Lung mass Plan Displaced left subcapital femur fracture: Status post hemiarthroplasty Flores catheter in place. Dc Flores catheter once patient begin mobilizing. DVT prophylaxis. Diabetes mellitus type 2: A.c. HS Accu-Cheks scale insulin therapy. Resume Lantus insulin at 20 units daily. COPD exacerbate/acute respiratory failure with hypoxia and hypercapnia: Status post BiPAP use last night. Patient is not tolerating oxygen per nasal cannula, Dulera inhaler. Schedule nebulizers. BiPAP PRN. Incentive spirometry. Hypertension: metoprolol and Norvasc, resume hydrochlorothiazide. Hyperlipidemia: continue patient's home medications. Chronic kidney disease stage 3: Renal function stable, at baseline. Discontinue IV fluid. Anxiety/depression/insomnia- continue home to duloxetine and PRN trazodone Lung mass: Suspicious for malignant. Outpatient workup with tissue biopsy. Patient's family at bedside, updated. Patient plan for skilled rehab placement.
[2019-12-06] MEDS ORDERED: ALBUTEROL INHALER 60 PUFF/8 GM IH SCH (11:45)
[2019-12-06] MEDS ORDERED: LORazepam 2 MG/ML VIAL IV ONE (12:50)
[2019-12-06] MEDS: METHYLPREDNISOLONE 40 MG INJ IV SCH (12:55)
[2019-12-06] MEDS ORDERED: HYDRALAZINE HCL 20 MG/ML VIAL IV ONE (12:55)
[2019-12-06] MEDS ORDERED: dilTIAZem HCL 25 MG/5 ML VIAL IV ONE (13:01)
[2019-12-06] MEDS ORDERED: ALBUTEROL 2.5 MG/3 ML NEB SOL NEB ONE (13:28)
[2019-12-06] MEDS ORDERED: ALBUTEROL 2.5 MG/3 ML NEB SOL NEB PRN (13:35)
[2019-12-06] MEDS ORDERED: ALBUTEROL 2.5 MG/3 ML NEB SOL NEB SCH (14:00)
[2019-12-06 14:28] LABS: Arterial Blood Carboxyhemoglob 0.8 % (0-1.5); Blood Gas Oxyhemoglobin 93.4 % (94-97); Blood O2 Saturation 95.2 % (92-98.5)
[2019-12-06] MEDS ORDERED: DILTIAZEM INJ 125 MG in NA CHLORIDE 0.9% 100 ML IVPB PRN (18:20)
[2019-12-06] MEDS ORDERED: INSULIN -REGULAR HUMAN 50 UNIT/0.5 ML ML ONE ×2 (19:01→20:30)
[2019-12-06] MEDS ORDERED: ARFORMOTEROL TARTRATE 15 MCG/2 ML VIAL.NEB NEB SCH (20:00)
[2019-12-06] MEDS ORDERED: METOPROLOL XL 50 MG TAB PO ONE (20:28)
[2019-12-06] MEDS ORDERED: GABAPENTIN 300 MG CAP ONE (20:28)
[2019-12-06] MEDS ORDERED: NA CHLORIDE 0.9% 1,000 ML ONE (20:28)
[2019-12-06] MEDS: FENOFIBRATE 160 MG TAB PO SCH (20:40)
[2019-12-06 20:47] LABS: Arterial Blood Carboxyhemoglob 1.1 % (0-1.5); Blood Gas Oxyhemoglobin 95.2 % (94-97); Blood O2 Saturation 96.9 % (92-98.5)
[2019-12-06] MEDS: BUDESONIDE 0.5 MG/2 ML NEB NEB SCH (20:55)
[2019-12-06] MEDS ORDERED: IPRATROPIUM BROM 0.5MG/2.5ML ONE (21:05)
[2019-12-06] MEDS: MORPHINE 2 MG/ML SYR IV PRN (21:50)
[2019-12-06] MEDS ORDERED: MORPHINE 2 MG/ML SYR ONE (21:59)
[2019-12-07] MEDS: METHYLPREDNISOLONE 40 MG INJ IV SCH ×2 (00:25→08:24)
[2019-12-07] MEDS ORDERED: METHYLPREDNISOLONE 40 MG INJ ONE ×2 (00:34→08:33)
[2019-12-07] MEDS: IPRATROPIUM BROM 0.5MG/2.5ML NEB SCH ×3 (00:50→13:50)
[2019-12-07] MEDS ORDERED: IPRATROPIUM BROM 0.5MG/2.5ML ONE ×3 (00:53→14:00)
[2019-12-07 04:31] LABS: Hematocrit 29.8 % (36.0-45.0)
[2019-12-07 05:21] LABS: Albumin 2.5 g/dL (3.4-5.0); Bilirubin Total 0.4 mg/dL (0.2-1.0); Magnesium 2.4 mg/dL (1.8-2.4); Potassium 4.6 mmol/L (3.5-5.1); Protein, Total 7.1 g/dL (6.4-8.2)
--- NOTE | 2019-12-07 05:47 | PN ---
Date of Progress Note: 12/05/2019 The patient is an 79-year-old was cleared for hip surgery. The patient is a do not resuscitate. Has a history of hypertension and diabetes. Surgery hemiarthroplasty was performed on December 03 0. Overnight, there is no evidence of arrhythmia, congestive heart failure. There is no chest pain reported. Vital signs are stable, afebrile. There is no rales, no edema. We will continue the pres ent regimen including metoprolol, Norvasc, and insulin. Plans for physical therapy and discharge per Dr. Trinh and Orthopedic Surgery. We will be available for questions if the need arises. We will be happy to see the patient as an outpatient after discharge. DIXON/WILBERTO Voice ID: [id number] Report ID: [id number]
[2019-12-07] MEDS: INSULIN -REGULAR HUMAN 50 UNIT/0.5 ML ML SQ SCH ×2 (07:30→10:59)
[2019-12-07] MEDS: GABAPENTIN 300 MG CAP PO SCH (08:24)
[2019-12-07] MEDS: ENOXAPARIN 40 MG/0.4 ML SQ SCH (08:24)
[2019-12-07] MEDS: METOPROLOL XL 50 MG TAB PO SCH (08:24)
[2019-12-07] MEDS: FAMOTIDINE 20 MG/2 ML VIAL IV SCH (08:25)
[2019-12-07] MEDS: AMLODIPINE 5 MG TAB PO SCH (08:25)
[2019-12-07] MEDS: MORPHINE 2 MG/ML SYR IV PRN (08:30)
[2019-12-07] MEDS ORDERED: GABAPENTIN 300 MG CAP ONE (08:32)
[2019-12-07] MEDS ORDERED: METOPROLOL XL 50 MG TAB PO ONE (08:33)
[2019-12-07] MEDS ORDERED: hydroCHLOROthiazide 25 MG TAB ONE (08:33)
[2019-12-07] MEDS ORDERED: AMLODIPINE 5 MG TAB ONE (08:33)
[2019-12-07] MEDS ORDERED: ENOXAPARIN 40 MG/0.4 ML SQ ONE (08:33)
[2019-12-07] MEDS ORDERED: FAMOTIDINE 20 MG/2 ML VIAL IV ONE (08:33)
[2019-12-07] MEDS ORDERED: MORPHINE 2 MG/ML SYR ONE ×3 (08:45→09:23)
[2019-12-07] MEDS: BUDESONIDE 0.5 MG/2 ML NEB NEB SCH (08:45)
--- NOTE | 2019-12-07 08:46 | EKG ---
Test Date: 2019-12-06 Test Time: 13:00:29 Balling Head Tender: MARIELA MEASUREMENT RESULTS: Intervals: Rate: 152 OR: 118 QRSD: 86 QT: 280 QTc: 445 Blackwell: P: 78 OR: 118 QRS: 67 T: 73 INTERPRETIVE STATEMENTS: Sinus tachycardia Septal infarct, age undetermined Abnormal ECG Compared to ECG 12/03/2019 21:50:29 Sinus rhythm no longer present Myocardial infarct finding still present Electronically Signed On 12-07-19 08:43:29 CDT by Shalom Campbell
[2019-12-07] MEDS: hydroCHLOROthiazide 12.5 MG CAP PO SCH (09:00)
[2019-12-07] MEDS: ENSURE SURGERY 237 ML CAN PO SCH (09:00)
[2019-12-07] MEDS: DULERA 100/5 (MOMETASONE/FORMOTEROL) INHALER IH SCH (09:00)
[2019-12-07] MEDS: DULOXETINE 30 MG CAP PO SCH (09:00)
[2019-12-07] MEDS ORDERED: LORazepam 2 MG/ML VIAL ONE ×2 (09:05→20:04)
[2019-12-07] MEDS: NA CHLORIDE 0.9% 1,000 ML IV SCH (09:19)
[2019-12-07] MEDS ORDERED: MORPHINE 4 MG/ML SYR IV PRN (09:39)
[2019-12-07] MEDS ORDERED: LORazepam 2 MG/ML VIAL IV PRN (09:41)
[2019-12-07] MEDS ORDERED: MORPHINE 2 MG/ML SYR IV ONE (09:44)
[2019-12-07] MEDS ORDERED: MORPHINE 2 MG/ML SYR IM ONE (09:45)
[2019-12-07] MEDS ORDERED: LORazepam 2 MG/ML VIAL IV ONE (09:46)
--- NOTE | 2019-12-07 11:46 | P.PN ---
Subjective Date of Service: 12/07/19 Primary Care Provider: Dr. Murcia Chief Complaint: s/p left hip hemiarthroplasty Patient experiencing intermittent episodes of acute dyspnea, panic attacks and confusion. Patient is DNR and DNI. Family-Son and Daughter at her bedside requesting for comfort measures only in line with patient wishes, stating patient's biggest fear was suffocating. BiPAP removed and comfort measures initiated. Patient given a dose of Ativan and IV morphine and currently co mfortable on high-flow oxygen. Physical Examination - Vital Signs Temperature: 98.2 F Blood Pressure: 154/88 Pulse: 120 Respirations: 20 Pulse Ox (%): 94 - Physical Exam General: Confused Neck: Supple Respiratory: Diminished (Markedly diminished) Cardiovascular: No edema, Normal S1 S2 (Tachycardic) Gastrointestinal: Normal bowel sounds, Soft and benign, No tenderness Musculoskeletal: No swelling Neurological: Other (Confused, nonfocal.) Assessment And Plan - Current Problems (Diagnosis) (1) Acute exacerbation of COPD with asthma Current Visit: No Status: Acute Physician Review Additional Text: Mildly displaced left subcapital femur fracture Diabetes mellitus type 2 COPD exacerbation Hypertension Hyperlipidemia Chronic kidney disease stage 3 Acute on chronic respiratory failure with hypoxia and hypercapnia Lung mass Plan Displaced left subcapital femur fracture: Status post hemiarthroplasty Diabetes mellitus type 2: Comfort measures initiated COPD exacerbate/acute respiratory failure with hypoxia and hypercapnia: comfort measures initiate with IV morphine and IV Ativan, bronchodilators. Hypertension: On comfort measures. Hyperlipidemia: continue patient's home medications. Lung mass: Suspicious for malignant. On comfort measures. Patient's family at bedside, updated.
[2019-12-07 14:20] VITALS: O2SAT 93
[2019-12-07 15:42] VITALS: TEMP 96.9
[2019-12-07 18:08] VITALS: BP 144/77
--- NOTE | 2019-12-28 10:03 | P.DS ---
Admission Date: 12/03/19 Discharge Date: 12/28/19 Primary Care Provider: Dr. Murcia Disposition: HOSPICE-MEDICAL FACILITY Reason for Admission: s/p left hip hemiarthroplasty - Problems (1) Acute exacerbation of COPD with asthma Status: Acute (2) History of left hip hemiarthroplasty Status: Acute (3) Acute respiratory failure with hypoxemia Status: Acute Brief History of Present Illness: 79 y/o woman with a history of COPD, chronic respiratory failure was brought to the ED after a fall at home. Patient is reported to have tripped and fell sustaining left hip pain. Images done in the ED showed left subcapital mildly displaced femur fracture. Orthopedic surgery was contacted and patient admitted for further management. Hospital Course: Patient underwent left hip hemiarthroplasty by Dr. Self. She developed acute respiratory distress secondary to COPD exaerbation. Family at this time requested comfort measures in line with patient wishes. Per their request, BIPAP was removed and patient placed on comfort measures. Hospice was consulted and patient subsequently discharged to inpatient hospice. Vital Signs/Physical Exam: Temp Pulse Resp BP Pulse Ox 96.9 F 101 H 20 144/77 H 97 12/07/19 16:00 12/07/19 16:00 12/07/19 16:00 12/07/19 16:00 12/07/19 16:00 Laboratory Data at Discharge: WBC 7.9 K/uL (4.3-10.9) D 12/05/19 03:35 Hgb 10.1 g/dL (12.0-15.0) L 12/07/19 04:18 Hct 29.8 % (36.0-45.0) L 12/07/19 04:18 Plt Count 175 K/uL (152-406) 12/05/19 03:35 PT 11.3 SECONDS (9.5-12.5) 12/03/19 20:55 INR 0.96 12/03/19 20:55 APTT 26.6 SECONDS (24.3-36.9) 12/03/19 20:55 Sodium Cancelled 12/07/19 05:00 Potassium Cancelled 12/07/19 05:00 BUN Cancelled 12/07/19 05:00 Creatinine Cancelled 12/07/19 05:00 Glucose Cancelled 12/07/19 05:00 Magnesium Cancelled 12/07/19 05:00 Total Bilirubin Cancelled 12/07/19 05:00 AST Cancelled 12/07/19 05:00 ALT Cancelled 12/07/19 05:00 Alkaline Phosphatase Cancelled 12/07/19 05:00 Troponin I < 0.02 ng/mL (0.0-0.045) 12/04/19 03:37 Home Medications: Amlodipine [Norvasc*] 5 mg PO DAILY 12/04/19 Budesonide/Formoterol Fumarate [Symbicort 160-4.5 Mcg Inhaler] 2 puff IH BID 12/04/19 Duloxetine HCl 60 mg PO DAILY 12/04/19 Fenofibrate 150 mg PO BEDTIME 12/04/19 Gabapentin 300 mg PO TID 12/04/19 Insulin Detemir [Levemir Flextouch] 30 units SQ BID 12/04/19 Ipratropium [place] 1 inh IN Q4H PRN 12/04/19 Metoprolol Succinate [Toprol Xl*] 50 mg PO BID 12/04/19 Tramadol HCl [Ultram] 50 mg PO BID PRN 12/04/19 Trazodone [Desyrel*] 150 mg PO BEDTIME 12/04/19 hydroCHLOROthiazide [Hydrochlorothiazide*] 12.5 mg PO DAILY 12/04/19
== END 2019-12-07 18:26 | disposition hospice, inpatient (51) | DRG 469 ==
LOC: ER 21:46 → ERHOLD 23:53 → 2ND 12-04 00:44 → ERHOLD 12-06 15:52 → 2ND 12-07 13:33
PROVIDERS: ADMIT Hospitalist; ATTEND Internal Medicine
PROC: 0SRS0JZ Replacement of Left Hip Joint, Femoral Surface with Synthetic Substitute, Open Approach (ICD-10-PCS; principal; 2019-12-04 11:00)
PROC: 5A09457 Assistance with Respiratory Ventilation, 24-96 Consecutive Hours, Continuous Positive Airway Pressure (ICD-10-PCS; 2019-12-05)
DX: S72.012A Unspecified intracapsular fracture of left femur, initial encounter for closed fracture (principal); J96.21 Acute and chronic respiratory failure with hypoxia; J96.22 Acute and chronic respiratory failure with hypercapnia; J44.1 Chronic obstructive pulmonary disease with (acute) exacerbation; I12.9 Hypertensive chronic kidney disease with stage 1 through stage 4 chronic kidney disease, or unspecified chronic kidney disease; N18.3 Chronic kidney disease, stage 3 (moderate); E11.22 Type 2 diabetes mellitus with diabetic chronic kidney disease; F41.9 Anxiety disorder, unspecified; G47.00 Insomnia, unspecified; F32.9 Major depressive disorder, single episode, unspecified; E78.5 Hyperlipidemia, unspecified; R91.8 Other nonspecific abnormal finding of lung field; W18.30XA Fall on same level, unspecified, initial encounter; Z66 Do not resuscitate; Z90.710 Acquired absence of both cervix and uterus; Z99.81 Dependence on supplemental oxygen; Z79.4 Long term (current) use of insulin; Z88.0 Allergy status to penicillin; Z79.899 Other long term (current) drug therapy; Z79.52 Long term (current) use of systemic steroids; Z20.828 Contact with and (suspected) exposure to other viral communicable diseases
CPT/HCPCS: 36415; 51702; 71045; 71275; 72170; 73700; 80048; 80053; 81003; 82805; 82947; 83540; 83735; 84466; 84484; 85014; 85018; 85025; 85610; 85730; 86850; 86900; 86901; 88305; 88311; 93005; 94002; 94010; 94640; 94660; 94760; 96374; 96375; 97110; 97116; 97161; 97530; 99285; G0390; J0360; J1650; J1720; J2270; J2405; J2704; J2920; J3010; J7030; J7606; Q9967; U0002

== ENCOUNTER 2019-12-07 18:23 | Inpatient (IN) | payer OTHER ==
--- OUTSIDE RECORDS SUMMARY | 2019-12-07 18:31 | XMS REPORT | Continuity of Care Document ---
:1940 Author Organization [facility] t Address [address] [place] [address] Care Team Providers Name Role Phone Rousseau Attending Clinician Problems Condition Condition Condition Status Onset Resolution Last Treating Co mments Source Name Details Category Date Date Treatment Clinician Date Joint Problem Active 2012-06-21 Memor ia Pain, 00:17:14 l Localized Joint Alex n In The Hip Pain, Localized In The Hip Active 06/21/2012 [facility] Lower Back Problem Active 2012-06-21 M emoria Pain 00:17:14 l Lower [place] Back Pain Active 3 [facility] Spinal Problem Active 2012-06-21 Memor ia Stenosis 00:17:14 l Spinal [place] Stenosis Active 3 [facility] Allergies, Adverse Reactions, Alerts Allergy Allergy Status Severity Reaction(s) Onset Inactive Treating Comm ents Source Name Type Date Date Clinician Not Not Active Memoria Known Known l [place] Medications Ordered Filled Start Stop Current Ordering Indication Dosage Frequency Signature Comments Components Source Medication Medication Date Date Medication? Clinician (SIG) Name Name No Active Yes No Active Mem oria Medications -09 Medication l 00:17: s [address] 14 Procedures This patient has no known procedures. Plan of Care Planned Activity Planned Date Details Comments Source Future Scheduled Test 2012-06-21 00:17:14 Plan of Care [code Carl Cheng = 86925-1] Future Scheduled Test 2012-06-06 23:04:04 Plan of Care [code Carl Cheng = 83960-2] Encounters Start End Encounter Admission Attending Care Care Encounter Source Date/Time Date/Time Type Type Clinicians Facility Department ID 2019-10-31 2019-10-31 Refill Onelia SHERINE [id number] 00:00:00 00:00:00 Nikita Renae [id number] [place] [id number] [facility] [id number] [facility] 2019-10-26 2019-10-26 Office SHERINE Rousseau [id number] 09:39:56 09:59:56 Visit Nikita Macdonald [id number] [place] [id number] [facility] [phone] [address] 2012-06-20 2012-06-20 Outpatient [facility] [id number] 19:17:33 19:17:14 2012-06-06 2012-06-06 Outpatient [facility] [id number] 18:04:22 18:04:04 Results This patient has no known results.
--- OUTSIDE RECORDS SUMMARY | 2019-12-07 18:31 | XMS REPORT | Continuity of Care Document ---
:1940 Author Organization [facility] Care Team Providers Name Role Phone [facility] Unavailable Un available Problems Problem Status Onset Classification Date Comments Sourc e Date Reported Joint Pain, Active 06/21/2012 [facility] Localized In The Hip Lower Back Active 06/21/2012 [facility] Pain Spinal Active 06/21/2012 [facility] Stenosis Medications Medication Details Route Status Patient Ordering Order Source Instructions Provider Date No Active No Active Active [facility] Medications Physicia ns Allergies, Adverse Reactions, Alerts Substance Category Reaction Severity Reaction Status Date Comments S ource type Reported Not Known [facility] Immunizations No Data Provided for [...] Location Location Encounter Encounter Reason Attending ADM [place] Stat us Source Details Type Number For Provider Date Date Visit AUDIT [id number] 06/06 [facility] AUDIT [id number] 06/20 [facility] [place], [id number] 07/05 06/21 [place] Provider: MERCEDES Lewis, Status: Pen, Time: 10:30 AM Procedures No Data Provided for This Section Assessment and Plan No Data Provided for This Section Plan of Care Plan of Care Date Source Orthopedics Referral 06/06/2012 06/21/2012 [facility] Routine Orthopedics Referral 06/06/2012 06/06/2012 [facility] Routine Social History No Data Provided for This Section Family History No Data Provided for This Section Advance Directives Order Name Results Value Date Source Advance Directives Advance Directives No Advance 06/21/2012 [facility] Directives available. Advance Directives Advance Directives No Advance 06/06/2012 [facility] Directives available. Functional Status No Data Provided for This Section
[2019-12-07] MEDS ORDERED: BISACODYL 10 MG RECTAL SUPP PR PRN (19:01)
[2019-12-07] MEDS ORDERED: ONDANSETRON 4 MG/2 ML VIAL IV PRN (19:01)
[2019-12-07] MEDS: SCOPOLAMINE HYDROBROMIDE PATCH TD SCH (20:09)
[2019-12-07] MEDS: LORazepam 2 MG/ML VIAL IV SCH (20:10)
[2019-12-07] MEDS: LORazepam 2 MG/ML VIAL IV PRN (23:47)
[2019-12-08] MEDS: LORazepam 2 MG/ML VIAL IV SCH ×6 (01:00→20:34)
[2019-12-08] MEDS: MORPHINE 2 MG/ML SYR IV PRN ×3 (04:36→16:19)
[2019-12-08] MEDS: GLYCOPYRROLATE 0.2 MG/ML SYR IV PRN ×3 (10:35→17:30)
[2019-12-08] MEDS: MORPHINE 2 MG/ML SYR IV SCH ×3 (13:00→20:34)
[2019-12-08] MEDS: LORazepam 2 MG/ML VIAL IV PRN ×2 (16:19→23:04)
[2019-12-09] MEDS: MORPHINE 2 MG/ML SYR IV SCH ×6 (01:28→21:12)
[2019-12-09] MEDS: LORazepam 2 MG/ML VIAL IV SCH ×6 (01:29→21:14)
[2019-12-09] MEDS: GLYCOPYRROLATE 0.2 MG/ML SYR IV PRN ×6 (01:30→21:22)
[2019-12-09] MEDS: LORazepam 2 MG/ML VIAL IV PRN ×2 (07:15→12:09)
[2019-12-09] MEDS: MORPHINE 2 MG/ML SYR IV PRN ×2 (08:23→12:12)
[2019-12-10] MEDS: MORPHINE 2 MG/ML SYR IV SCH ×5 (02:47→16:06)
[2019-12-10] MEDS: LORazepam 2 MG/ML VIAL IV SCH ×5 (02:47→16:06)
[2019-12-10 05:25] VITALS: O2SAT 90
[2019-12-10] MEDS: SCOPOLAMINE HYDROBROMIDE PATCH TD SCH (08:14)
[2019-12-10 09:43] VITALS: BP 153/78; TEMP 99.9
== END 2019-12-10 22:14 | disposition expired | DRG 951 ==
LOC: 2ND 18:23
PROVIDERS: ADMIT Internal Medicine Hematology & Oncology; ATTEND Internal Medicine Hematology & Oncology
DX: Z51.5 Encounter for palliative care (principal)
CPT/HCPCS: J2270